=== PATIENT | female | born 1945 | race Caucasian/White ===

== ENCOUNTER 2025-01-31 13:48 | Outpatient (AMB) | payer MEDICARE, OTHER, SELFPAY ==
--- NOTE | 2025-01-31 13:51 | A.OFFVIS_ITS ---
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 She was doing ok but still having symptoms of aura, loss of balance, and pain in legs. 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 06/02/23 Code(s): G62.9 - Polyneuropathy, unspecified Category: Medical Qualifiers: Peripheral neuropathy type: polyneuropathy, unspecified Qualified Code(s): G62.9 - Polyneuropathy, unspecified (3) Cerebral microvascular disease: Comment: MRI brain [place] in [place] in Jun 2023: scattered WM changes (reported). Code(s): I67.89 - Other cerebrovascular disease Category: Medical Plan Impression: a: Migraine with aura b: Severe axonal SM peripheral neuropathy c: Cerebral microvascular disease d: Neuropathic pain Rec: a: Topiramate 50mg one a day b: PRN [id number] c: Pregabilin 150mg one at night Medications: New topiramate 50 mg PO DAILY 90 tabs 0RF pregabalin 150 mg PO BEDTIME 90 caps 0RF Coding Level of Care Code Est Pt Level 4 (04262) Diagnoses Migraine with aura, not intractable, without status migrainosus G43.109 Peripheral polyneuropathy G62.9 Peripheral neuropathy type: polyneuropathy, unspecified Cerebral microvascular disease I67.89
--- OUTSIDE RECORDS SUMMARY | 2025-01-31 13:54 | XMS_ITS | Clinical Summary ---
Author Organization [facility] Address [address] [place] [address] Care Team Providers Care Portfolio Manager Name Role Phone Johan Ge MD Primary Care Provider [phone] Allergies Active Allergy Reactions Criticality Noted Date Comments Oxycodone-Acetaminophen Other (See Comments) Dizziness Medications citalopram (CeleXA) 10 MG tablet citalopram 10 mg tablet Active levothyroxine (SYNTHROID, LEVOTHROID) 75 MCG tablet Take 75 mcg by mouth. Active celeCOXIB (CeleBREX) 200 MG capsule celecoxib 200 mg capsule TAKE 1 CAPSULE BY MOUTH EVERY DAY Active zolpidem (AMBIEN) 5 MG tablet zolpidem 5 mg tablet TAKE 1 TABLET BY MOUTH EVERYDAY AT BEDTIME Active Cholecalciferol 50 MCG (2000 UT) Tab Take 2,000 Units by mouth. Active Magnesium Oxide 250 MG Tab tablet Take 250 mg by mouth. Active topiramate (TOPAMAX) 50 MG tablet Take 50 mg by mouth daily. Active Active Problems No known active problems Social History Tobacco Use Types Packs/Day Years Used Date Smoking Tobacco: Never Assessed Comments Unknown Sex and Gender Information Value Date Recorded Sex Assigned at Not on file Legal Sex Female 6:47 PM EST Gender Identity Not on file Sexual Orientation Not on file Last Filed Vital Signs Vital Sign Reading Time Taken Comments Blood Pressure 116/66 09/20/2023 2:25 PM EDT Pulse 71 09/20/2023 2:25 PM EDT Temperature 36.6 C (97.9 F) 09/20/2023 2:25 PM EDT Respiratory Rate - - Oxygen Saturation 99% 09/20/2023 2:25 PM EDT Inhaled Oxygen Concentration - - Weight - - Height - - Body Mass Index - - Plan of Treatment Health Maintenance Due Date Last Done Comments Hepatitis C Virus Screening 1945 DTaP/Tdap/Td Vaccines (1 - Tdap) 1965 Pneumococcal Vaccines 50+ (1 of 1 - PCV) 1996 Zoster (Shingles) Vaccine (1 of 2) 1996 DXA Bone Density (Females,Ages 65 and older) 2011 RSV Vaccine 60 years and older and Patients (1 - 1-dose 75+ series) 2021 COVID-19 Vaccine ( season) 2024 04/09/2022, 01/06/2022, 05/06/2021, Additional history exists Influenza Vaccine 01/25/2025 05/13/2023, , 04/20/2021, Additional history exists Hepatitis B Vaccines Aged Out No long er eligible based on patient's age to complete this topic Insurance MEDICARE PART A & B [facility] Care Teams Portfolio Manager Relationship Specialty Start Date End Date Johan Ge MD [address] [address] PCP - General Family Medicine 05/16/22
== END 2025-01-31 14:04 | disposition home or self-care (01) ==
PROVIDERS: PCP Family Medicine; Visit Provider Psychiatry & Neurology Neurology
DX: G43.109 Migraine with aura, not intractable, without status migrainosus (principal); G62.9 Polyneuropathy, unspecified; I67.89 Other cerebrovascular disease
CPT/HCPCS: 99214

== ENCOUNTER → 2025-01-31 13:48 | Outpatient (BNVA) | payer MEDICARE, OTHER, SELFPAY | PROVIDERS: PCP Family Medicine; Visit Provider Psychiatry & Neurology Neurology | DX: G43.109 Migraine with aura, not intractable, without status migrainosus (principal); G62.9 Polyneuropathy, unspecified; I67.89 Other cerebrovascular disease | CPT/HCPCS: 99212 ==

== ENCOUNTER 2025-05-20 13:20 | Outpatient (AMB) | payer MEDICARE, OTHER, SELFPAY ==
--- OUTSIDE RECORDS SUMMARY | 2023-04-26 10:19 | XMS_ITS | Continuity of Care Document ---
Author Organization [facility] Address [address] [facility] [address] [place] [phone] Phone Care Team Providers Care Edge Stainer Machine Name Role Phone Wilfrid Cintron MD Unavailable Unavailable Procedures Procedure Date Office/Oupt E&M New Pt 45 Mins Duplex Scan-extrem Veins; Comp Advance Directives Directive Yes / No Effective Date File Name No Information Encounters Encounter Description Practice Location Reason(s) For Visit Diagnoses Date Provider Providers Copied on Encounter [facility], [address] [place] [address], [id number], tel:[phone] [place] - [place] - [place] Venous insufficiency (chronic) (peripheral) 3 Saida Yuen. [address] [place], [address], [place]. tel:[phone] Referring Provider: Lainey Dumont DPM, [address] [place], [address]. tel:[phone] Office/Oupt E&M New Pt 45 Mins [facility], [address] [place] [address], [id number], tel:[phone] [place] - [place] - [facility] Pain in right lower legPain in left lower legPain in right legPain in left legVenous insufficiency (chronic) (peripheral) 3 Stephanie Emery. [address], [address], [place], [address], [place]. [phone] Referring Provider: Lainey Dumont DPM, [address] [place], [address]. tel:[phone] [facility], [address] [place] [address], [id number], tel:[phone] [place] - [place] - [place] Chronic venous hypertension (idiopathic) with other complications of bilateral lower extremity 3 Stephanei Emery. [address], [address], [place], [address], [place]. [phone] Referring Provider: Lainey Dumont DPM, [address] [place], [address]. tel:[phone] Family History Family Member Type Diagnosis Age At Onset No Information Payers Payer name Insurance type Covered green party ID Authorjohanna thomas(s) Medicare [place] [id number] [facility] [id number] Social History Type Description Quantity Date Captured Comments Sex Female Smoking Status No Information Chief Complaint And Reason For Visit No Information Reason For Referral Reason For Referral No Information Plan Of Treatment Date Type Action Status Goal Tobacco cessation counseling completed Goal Diet education completed Goal Diet education completed Referral Ordered: Weight management: Referral to physician timeframe: 3 Months (related to Body mass index (BMI) 28.0-28.9, adult) ordered Referral Ordered: Lainey Dumont DPM timeframe: 3 Months (related to Essential (primary) hypertension) ordered History Of Present Illness Encounter Date Complaint History Of Prese nt Illness No Information Functional Status Date Functional Assessmen t No Information Instructions Date Instruction Additional Infor mation Compression stocking usage as conservative measure Related to Pain in right lower leg Patient education booklet given Related to Pain in right lower leg Lifestyle education Related to B clarissa mass index (BMI) 28.0-28.9, adult Giving Encouragement to exercise Related to Body mass index (BMI) 28.0-28.9, adult Diet education Related to Body mass index (BMI) 28.0-28.9, adult Lifestyle education Related to E ssential (primary) hypertension Exercise education Related to Es sential (primary) hypertension Diet education Related to Essen tial (primary) hypertension Assessments Type Assessment Date assessment Venous insufficiency (chronic) ( peripheral) Patient Care Teams Name Effective Dates (start - stop) Status Members No Information
--- NOTE | 2025-05-20 13:28 | MHC.OFFVIS ---
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 [facility] Medical History (Updated 01/31/25 @ 13:55 by Aidan Clay MD) Cerebral microvascular disease TIA (transient ischemic attack) Peripheral neuropathy Migraine with aura Physical Exam Neuro Other: Mental Status: Alert and oriented to person, place, and time. Normal attention. Normal spontaneous speech, fluency, and comprehension. Cranial Nerves: CN II: Visual pisano full to confrontation, visual acuity intact. CN III, IV, : Pupils equal, round, reactive to light and accommodation. Extraocular movements are normal. CN V: Facial sensation is normal. CN VII: Facial movements symmetrical. CN VIII: Hearing intact to bedside conversation is normal. CN IX, X: Palate elevates symmetrically. CN XI: Shoulder shrug and head turn symmetrical. CN XII: Tongue midline without atrophy or fasciculations. Gait and Station: No obvious gait abnormality. No ataxia or instability. Extrapyramidal: Full facial expressions and blinking. No rigidity. Movements are appropriate with no tremor or abnormality. Speech: Normal; no dysarthria or tremor. 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 06/02/23 Code(s): G62.9 - Polyneuropathy, unspecified Category: Medical Qualifiers: Peripheral neuropathy type: polyneuropathy, unspecified Qualified Code(s): G62.9 - Polyneuropathy, unspecified (2) Cerebral microvascular disease: Comment: MRI brain WO in [place] in Jun 2023: scattered WM changes (reported). Code(s): I67.89 - Other cerebrovascular disease Category: Medical (3) Migraine with aura, not intractable, without status migrainosus: Comment: MRI brain at [facility] in Jun 2023: Mild atrophy, minimal Code(s): G43.109 - Migraine with aura, not intractable, without status migrainosus Category: Medical Plan Impression: a: Migraine with aura b: Severe axonal SM peripheral neuropathy c: Cerebral microvascular disease d: Neuropathic pain Rec: a: Topiramate 50mg one a day b: PRN [id number] c: Pregabilin 150mg one at night Coding Level of Care Code Est Pt Level 3 (24537) Diagnoses Peripheral polyneuropathy G62.9 Peripheral neuropathy type: polyneuropathy, unspecified Cerebral microvascular disease I67.89 Migraine with aura, not intractable, without status migrainosus G43.109
--- OUTSIDE RECORDS SUMMARY | 2025-05-20 18:00 | XMS_ITS | Continuity of Care Document ---
Author Organization [facility], Main Office Address [address] [place] [address] Care Team Providers Care Yard Switch Operator Name Role Phone RAJESH RAMIRES Stock Control Clerk MEKHI CASAS Sprinkler Irrigation Equipment Mechanic [phone] BRISEIDA SHABAZZ Rotary Lithographic Press Operator REBA TRIANA Life Science Research Assistant CHRISTI GREGORY Phys. Med. & Rehab FAMILIA SOLIS Melt Room Operator FREDERIC WONG Primary Care Provider [phone] [facility] Urologist ROXANA HIGGINS Neurologist CELINE ROQUE Sprinkler Irrigation Equipment Mechanic [phone] FERNANDO WALLER Rotary Lithographic Press Operator Assessment Encounter Date Assessment Date Assessment LastModified by Organization Details LastModified Time 03/18/2025 03/18/2025 Fatigue / CT management -Taper zolpidem to 2.5mg to assess for medication-related fatigue. -Recommend discussion with neurology regarding pregabalin/topiram ate dose adjustment or possible switch to duloxetine (may address neuropathy, mood, and IBS-type symptoms). -Encouraged weight loss for management of CT. -Since CPAP is not tolerated, consider referral for oral appliance therapy or other alternatives. -ECG performed today normal. -Labs ordered: CBC, CMP, vitamin D, Lyme screen, ESR, CRP, phosphorus, TSH with free T4, HbA1c, urinalysis. -Chest X-ray ordered to evaluate for alternative systemic causes. Constipation / GI symptoms -Abdominal X-ray ordered to assess stool burden. -Initiated Linzess (adverse effect reviewed). If inadequate response: stepwise addition of MiraLAX, then stool softener. -Reinforced upcoming colonoscopy (May 2025) to evaluate for structural pathology. Anal fissures -Continue follow-up with gastroenterology and colorectal surgery. General -Follow-up in 1 month to reassess fatigue and constipation. -Counseled on red flag symptoms (e.g., significant rectal bleeding, weight loss, severe abdominal pain, worsening fatigue, new neurological symptoms) and to seek care promptly if they occur. codie Not available 03/18/2025 12:11:13 Plan of Treatment Reminders Order Date Submit Date Provider Last Modified By Organization Details Last Modified Time Details Appointments [id number] 2025 11:15A Dania Wong MD Not available Not available Not available Lab HbA1c (hemoglob in A1c), blood 2024 025 CASSIE [facility] (Centralized Electronic Ordering - All Locations), Patient Can Go To The Location Of Their Choice, 03/20/2025 06:08:37 CBC w/ auto diff 2024 025 CASSIE [facility] ([facility]ized [facility] Ordering - All Locations), Patient Can Go To The Location Of Their Choice, 03/20/2025 06:08:34 CMP, serum or plasma 2024 025 CASSIE [facility] ([facility]ized [facility] Ordering - All Locations), Patient Can Go To The Location Of Their Choice, 03/20/2025 06:08:35 vitamin D, 25-hydrox y, total, serum 2024 025 CASSIE [facility] ([facility]ized [facility] Ordering - All Locations), Patient Can Go To The Location Of Their Choice, 03/20/2025 06:08:38 borrelia burgdorfe ri IgG + IgM + total panel, IA, serum 2024 025 CASSIE [facility] ([facility] Ordering - All Locations), Patient Can Go To The Location Of Their Choice, 03/20/2025 06:08:38 inflammat ion panel, serum or plasma 2024 025 CASSIE [facility] ([facility] Ordering - All Locations), Patient Can Go To The Location Of Their Choice, 03/20/2025 06:08:37 phosphoru s, serum or plasma 2024 025 TOOELE [facility] ([facility]ized Electronic Ordering - All Locations), Patient Can Go To The Location Of Their Choice, 03/20/2025 06:08:39 TSH + free T4, serum 2024 025 TOOELE [facility] ([facility]ized [facility] Ordering - All Locations), Patient Can Go To The Location Of Their Choice, 03/20/2025 06:08:34 urinalysi s complete, reflex culture 2024 TOOELE [facility] ([facility] Ordering - All Locations), Patient Can Go To The Location Of Their Choice, 03/20/2025 06:08:36 cobalamin and folate panel, serum 2024 [facility] Patient Can Go To The Location Of Their Choice, 03/20/2025 06:08:36 iron + TIBC + ferritin, serum 2024 [facility]), Patient Can Go To The Location Of Their Choice, 03/20/2025 06:08:33 Referral None recorded. Procedures None recorded. Surgeries None recorded. Imaging XR, abdomen, complete 2024 [facility], [facility] [place], [address], 03/20/2025 17:22:06 electroca rdiogram 2024 In-Office Order, Internal Use Only DO Not Attach Compendium DO Not Attach Compendium, Do Not Delete/merge, [id number] 03/18/2025 12:21:23 XR, chest, 2 view 2024 [facility], [address] [place], [address], 03/19/2025 12:13:15 Medication Orders Linzess 72 mcg capsule 2024 025 codie [id number], [address], [place], [address], 03/18/2025 12:11:46 Patient TargetsNo targets recorded. Patient Instructions Encounter Date Encounter Id Patient Instructions Last Modified By Organization Details Last Modified Time 03/18/2025 [id number] anal fissure: ca re instructions [email or web address] Not available 03/18/2025 12:13:04 gastroesophageal reflux disease (GERD): care instructions [email or web address] Not available 03/18/2025 12:13:04 hemorrhoids: car e instructions [email or web address] Not available 03/18/2025 12:13:04 hypothyroidism: care instructions [email or web address] Not available 03/18/2025 12:13:04 Reason for Referral None Reported. Results Created Date Observation Date Name Description Value Unit Range Abnormal Flag Note LastModifiedBy Organization Detail LastModifiedTime 03/18/2003/19/2025 FE+TI BC+FE R iron bind.cap.(TI BC) 363 ug/dL 250-45 0 normal Not Available [facility] ([facility]) [address] [place], [address], 03/20/2025 06:08:33 03/18/20 25 03/19/2025 FE+TI BC+FE R UIBC 276 ug/dL 118-36 9 normal Not Available [facility] ([facility]) [address] [place], [address], 03/20/2025 06:08:33 03/18/2003/19/2025 FE+TI BC+FE R iron 87 ug/dL 27-139 normal Not Available [facility] ([facility]) [address] [place], [address], 03/20/2025 06:08:33 03/18/20 25 03/19/2025 FE+TI BC+FE R iron saturation 24 % 15-55 normal Not Available [facility] ([facility]) [address] [place], [address], 03/20/2025 06:08:33 03/18/20 25 03/19/2025 FE+TI BC+FE R ferritin 59 NG/mL 15-150 normal Not Available [facility] ([facility]) [address] [place], [address], 03/20/2025 06:08:33 03/18/2003/19/2025 TSH+F REE T4 TSH 5.240 uIU/m L 0.450- 4.500 above high normal Not Available [facility] ([facility]) [address] [place], [address], 03/20/2025 06:08:34 03/18/2003/19/2025 TSH+F REE T4 T4,free(dire ct) 1.28 NG/dL 0.82-1 .77 normal Not Available [facility] ([facility]) [address] [place], [address], 03/20/2025 06:08:34 03/18/20 25 03/19/2025 CBC WITH DIFFE RENTI AL/PL ATELE T WBC 6.8 x10e3 /uL 3.4-10 .8 normal Not Available [facility] ([facility]) [address] [place], [address], 03/20/2025 06:08:34 03/18/20 25 03/19/2025 CBC WITH DIFFE RENTI AL/PL ATELE T RBC 4.49 x10e6 /uL 3.77-5 .28 normal Not Available [facility] ([facility]) [address] [place], [address], 03/20/2025 06:08:34 03/18/20 25 03/19/2025 CBC WITH DIFFE RENTI AL/PL ATELE T hemoglobin 13.4 g/dL 11.1-1 5.9 normal Not Available [facility] ([facility]) [address] [place], [address], 03/20/2025 06:08:34 03/18/20 25 03/19/2025 CBC WITH DIFFE RENTI AL/PL ATELE T hematocrit 40.6 % 34.0-4 6.6 normal Not Available [facility] ([facility]) [address] [place], [address], 03/20/2025 06:08:34 03/18/2003/19/2025 CBC WITH DIFFE RENTI AL/PL ATELE T MCV 90 fL 79-97 normal Not Available [facility] ([facility]) [address] [place], [address], 03/20/2025 06:08:34 03/18/2003/19/2025 CBC WITH DIFFE RENTI AL/PL ATELE T MCH 29.8 pg 26.6-3 3.0 normal Not Available [facility] ([facility]) [address] [place], [address], 03/20/2025 06:08:34 03/18/20 25 03/19/2025 CBC WITH DIFFE RENTI AL/PL ATELE T MCHC 33.0 g/dL 31.5-3 5.7 normal Not Available [facility] ([facility]) [address] [place], [address], 03/20/2025 06:08:34 03/18/2003/19/2025 CBC WITH DIFFE RENTI AL/PL ATELE T RDW 13.3 % 11.7-1 5.4 Not Available [facility] ([facility]) [address] [place], [address], 03/20/2025 06:08:34 03/18/20 25 03/19/2025 CBC WITH DIFFE RENTI AL/PL ATELE T platelets 215 x10e3 /uL 150-45 0 normal Not Available [facility] ([facility]) [address] [place], [address], 03/20/2025 06:08:34 03/18/20 25 03/19/2025 CBC WITH DIFFE RENTI AL/PL ATELE T neutrophils 64 % not estab. normal Not Available [facility] ([facility]) [address] [facility], [place], [address], 03/20/2025 06:08:34 03/18/20 25 03/19/2025 CBC WITH DIFFE RENTI AL/PL ATELE T lymphs 27 % not estab. normal Not Available [facility] ([facility]) [address] [facility], [place], [address], 03/20/2025 06:08:34 03/18/20 25 03/19/2025 CBC WITH DIFFE RENTI AL/PL ATELE T monocytes 6 % not estab. normal Not Available [facility] ([facility]) [address] [facility], [place], [address], 03/20/2025 06:08:34 03/18/20 25 03/19/2025 CBC WITH DIFFE RENTI AL/PL ATELE T eos 2 % not estab. normal Not Available [facility] ([facility]) [address] [facility], [place], [address], 03/20/2025 06:08:34 03/18/20 25 03/19/2025 CBC WITH DIFFE RENTI AL/PL ATELE T basos 1 % not estab. normal Not Available [facility] ([facility]) [address] [facility], [place], [address], 03/20/2025 06:08:34 03/18/20 25 03/19/2025 CBC WITH DIFFE RENTI AL/PL ATELE T immature cells SALON CUSTOMER EXPERIENCE SPECIALIST Not Available [facility] ([facility]) [address] [facility], [place], [address], 03/20/2025 06:08:34 03/18/20 25 03/19/2025 CBC WITH DIFFE RENTI AL/PL ATELE T neutrophils (absolute) 4.4 x10e3 /uL 1.4-7. 0 normal Not Available [facility] ([facility]) [address] [place], [address], 03/20/2025 06:08:34 03/18/20 25 03/19/2025 CBC WITH DIFFE RENTI AL/PL ATELE T lymphs (absolute) 1.9 x10e3 /uL 0.7-3. 1 normal Not Available [facility] ([facility]) [address] [facility], [place], [address], 03/20/2025 06:08:34 03/18/2003/19/2025 CBC WITH DIFFE RENTI AL/PL ATELE T monocytes(ab solute) 0.4 x10e3 /uL 0.1-0. 9 normal Not Available [facility] ([facility]) [address] [place], [address], 03/20/2025 06:08:34 03/18/20 25 03/19/2025 CBC WITH DIFFE RENTI AL/PL ATELE T eos (absolute) 0.1 x10e3 /uL 0.0-0. 4 normal Not Available [facility] ([facility]) [address] [facility], [place], [address], 03/20/2025 06:08:34 03/18/20 25 03/19/2025 CBC WITH DIFFE RENTI AL/PL ATELE T baso (absolute) 0.1 x10e3 /uL 0.0-0. 2 normal Not Available [facility] ([facility]) [address] [place], [address], 03/20/2025 06:08:34 03/18/20 25 03/19/2025 CBC WITH DIFFE RENTI AL/PL ATELE T immature granulocytes 0 % not estab. Not Available [facility] ([facility]) [address] [place], [address], 03/20/2025 06:08:34 03/18/20 25 03/19/2025 CBC WITH DIFFE RENTI AL/PL ATELE T immature grans (abs) 0.0 x10e3 /uL 0.0-0. 1 Not Available [facility] ([facility]) [address] [facility], [place], [address], 03/20/2025 06:08:34 03/18/20 25 03/19/2025 CBC WITH DIFFE RENTI AL/PL ATELE T NRBC SALON CUSTOMER EXPERIENCE SPECIALIST Not Available [facility] ([facility]) [address] [facility], [place], [address], 03/20/2025 06:08:34 03/18/20 25 03/19/2025 CBC WITH DIFFE RENTI AL/PL ATELE T hematology comments: SALON CUSTOMER EXPERIENCE SPECIALIST Not Available [facility] ([facility]) [address] [facility], [place], [address], 03/20/2025 06:08:34 03/18/20 25 03/19/2025 COMP. METAB OLIC PANEL (14) glucose 91 mg/dL 70-99 normal Not Available [facility] ([facility]) [address] [facility], [place], [address], 03/20/2025 06:08:35 03/18/20 25 03/19/2025 COMP. METAB OLIC PANEL (14) BUN 13 mg/dL 8-27 normal Not Available [facility] ([facility]) [address] [facility], [place], [address], 03/20/2025 06:08:35 03/18/20 25 03/19/2025 COMP. METAB OLIC PANEL (14) creatinine 0.75 mg/dL 0.57-1 .00 normal Not Available [facility] ([facility]) [address] [facility], [place], [address], 03/20/2025 06:08:35 03/18/20 25 03/19/2025 COMP. METAB OLIC PANEL (14) eGFR 81 mL/mi n/1.7 3 >59 normal Not Available [facility] ([facility]) [address] [place], [address], 03/20/2025 06:08:35 03/18/20 25 03/19/2025 COMP. METAB OLIC PANEL (14) BUN/creatini ne ratio 17 12-28 normal Not Available [facility] ([facility]) [address] [place], [address], 03/20/2025 06:08:35 03/18/20 25 03/19/2025 COMP. METAB OLIC PANEL (14) sodium 140 mmol/ L 134-14 4 normal Not Available [facility] ([facility]) [address] [facility], [place], [address], 03/20/2025 06:08:35 03/18/20 25 03/19/2025 COMP. METAB OLIC PANEL (14) potassium 4.6 mmol/ L 3.5-5. 2 normal Not Available [facility] ([facility]) [address] [place], [address], 03/20/2025 06:08:35 03/18/20 25 03/19/2025 COMP. METAB OLIC PANEL (14) chloride 103 mmol/ L 96-106 normal Not Available [facility] ([facility]) [address] [place], [address], 03/20/2025 06:08:35 03/18/20 25 03/19/2025 COMP. METAB OLIC PANEL (14) carbon dioxide, total 22 mmol/ L 20-29 normal Not Available [facility] ([facility]) [address] [place], [address], 03/20/2025 06:08:35 03/18/20 25 03/19/2025 COMP. METAB OLIC PANEL (14) calcium 9.4 mg/dL 8.7-10 .3 normal Not Available [facility] ([facility]) [address] [place], [address], 03/20/2025 06:08:35 03/18/20 25 03/19/2025 COMP. METAB OLIC PANEL (14) protein, total 6.8 g/dL 6.0-8. 5 normal Not Available [facility] ([facility]) [address] [place], [address], 03/20/2025 06:08:35 03/18/20 25 03/19/2025 COMP. METAB OLIC PANEL (14) albumin 4.6 g/dL 3.8-4. 8 normal Not Available [facility] ([facility]) [address] [place], [address], 03/20/2025 06:08:35 03/18/20 25 03/19/2025 COMP. METAB OLIC PANEL (14) globulin, total 2.2 g/dL 1.5-4. 5 Not Available [facility] ([facility]) [address], [place], [address], 03/20/2025 06:08:35 03/18/20 25 03/19/2025 COMP. METAB OLIC PANEL (14) bilirubin, total 0.4 mg/dL 0.0-1. 2 normal Not Available [facility] ([facility]) [address] [place], [address], 03/20/2025 06:08:35 03/18/20 25 03/19/2025 COMP. METAB OLIC PANEL (14) alkaline phosphatase 103 IU/L 49-135 normal Ple ase note refer ence inter meseret odell e Not Available [facility] ([facility]) [address] [place], [address], 03/20/2025 06:08:35 03/18/20 25 03/19/2025 COMP. METAB OLIC PANEL (14) AST (SGOT) 17 IU/L 0-40 normal Not Available [facility] ([facility]) [address], [place], [address], 03/20/2025 06:08:35 03/18/2003/19/2025 COMP. METAB OLIC PANEL (14) ALT (SGPT) 10 IU/L 0-32 normal Not Available [facility] ([facility]) [address], [place], [address], 03/20/2025 06:08:35 03/18/20 25 03/19/2025 UA/M W/RFL X CULTU RE, ROUTI NE specific gravity 1.020 1.005- 1.030 normal Not Available [facility] ([facility]) [address], [place], [address], 03/20/2025 06:08:36 03/18/20 25 03/19/2025 UA/M W/RFL X CULTU RE, ROUTI NE pH 7.5 5.0-7. 5 normal Not Available [facility] ([facility]) [address], [place], [address], 03/20/2025 06:08:36 03/18/20 25 03/19/2025 UA/M W/RFL X CULTU RE, ROUTI NE urine-color Yellow yellow Not Available [facility] ([facility]) [address] [place], [address], 03/20/2025 06:08:36 03/18/20 25 03/19/2025 UA/M W/RFL X CULTU RE, ROUTI NE appearance Cloudy clear abnormal Not Available [facility] ([facility]) [address] [place], [address], 03/20/2025 06:08:36 03/18/20 25 03/19/2025 UA/M W/RFL X CULTU RE, ROUTI NE WBC esterase Trace negati ve abnormal Not Available [facility] ([facility]) [address] [facility], [place], [address], 03/20/2025 06:08:36 03/18/20 25 03/19/2025 UA/M W/RFL X CULTU RE, ROUTI NE protein Trace negati ve/tra ce Not Available [facility] ([facility]) [address] [facility], [place], [address], 03/20/2025 06:08:36 03/18/20 25 03/19/2025 UA/M W/RFL X CULTU RE, ROUTI NE glucose Negati ve negati ve Not Available [facility] ([facility]) [address] [place], [address], 03/20/2025 06:08:36 03/18/20 25 03/19/2025 UA/M W/RFL X CULTU RE, ROUTI NE ketones Negati ve negati ve Not Available [facility] ([facility]) [address] [place], [address], 03/20/2025 06:08:36 03/18/20 25 03/19/2025 UA/M W/RFL X CULTU RE, ROUTI NE occult blood Negati ve negati ve Not Available [facility] ([facility]) [address] [place], [address], 03/20/2025 06:08:36 03/18/20 25 03/19/2025 UA/M W/RFL X CULTU RE, ROUTI NE bilirubin Negati ve negati ve Not Available [facility] ([facility]) [address] [place], [address], 03/20/2025 06:08:36 03/18/20 25 03/19/2025 UA/M W/RFL X CULTU RE, ROUTI NE urobilinogen ,semi-qn 0.2 mg/dL 0.2-1. 0 normal Not Available [facility] ([facility]) [address] [place], [address], 03/20/2025 06:08:36 03/18/20 25 03/19/2025 UA/M W/RFL X CULTU RE, ROUTI NE nitrite, urine Negati ve negati ve Not Available [facility] ([facility]) [address] [facility], [place], [address], 03/20/2025 06:08:36 03/18/20 25 03/19/2025 UA/M W/RFL X CULTU RE, ROUTI NE microscopic examination See below: Micro scopi c was indic ated and was perfo rmed. Not Available [facility] ([facility]) [address] [facility], [place], [address], 03/20/2025 06:08:36 03/18/20 25 03/19/2025 UA/M W/RFL X CULTU RE, ROUTI NE WBC None seen /hpf 0 - 5 Not Available [facility] ([facility]) [address] [facility], [place], [address], 03/20/2025 06:08:36 03/18/20 25 03/19/2025 UA/M W/RFL X CULTU RE, ROUTI NE RBC 0-2 /hpf 0 - 2 Not Available [facility] ([facility]) [address] [facility], [place], [address], 03/20/2025 06:08:36 03/18/20 25 03/19/2025 UA/M W/RFL X CULTU RE, ROUTI NE epithelial cells (non renal) None seen /hpf 0 - 10 Not Available [facility] ([facility]) [address] [place], [address], 03/20/2025 06:08:36 03/18/20 25 03/19/2025 UA/M W/RFL X CULTU RE, ROUTI NE epithelial cells (renal) SALON CUSTOMER EXPERIENCE SPECIALIST Not Available [facility] ([facility]) [address] [place], [address], 03/20/2025 06:08:36 03/18/20 25 03/19/2025 UA/M W/RFL X CULTU RE, ROUTI NE casts None seen /lpf none seen Not Available [facility] ([facility]) [address] [facility], [place], [address], 03/20/2025 06:08:36 03/18/20 25 03/19/2025 UA/M W/RFL X CULTU RE, ROUTI NE cast type SALON CUSTOMER EXPERIENCE SPECIALIST Not Available [facility] ([facility]) [address] [facility], [place], [address], 03/20/2025 06:08:36 03/18/20 25 03/19/2025 UA/M W/RFL X CULTU RE, ROUTI NE crystals SALON CUSTOMER EXPERIENCE SPECIALIST Not Available [facility] ([facility]) [address] [facility], [place], [address], 03/20/2025 06:08:36 03/18/20 25 03/19/2025 UA/M W/RFL X CULTU RE, ROUTI NE crystal type SALON CUSTOMER EXPERIENCE SPECIALIST Not Available [facility] ([facility]) [address] [facility], [place], [address], 03/20/2025 06:08:36 03/18/20 25 03/19/2025 UA/M W/RFL X CULTU RE, ROUTI NE mucus threads SALON CUSTOMER EXPERIENCE SPECIALIST Not Available [facility] ([facility]) [address] [facility], [place], [address], 03/20/2025 06:08:36 03/18/20 25 03/19/2025 UA/M W/RFL X CULTU RE, ROUTI NE bacteria None seen none seen/f ew Not Available [facility] ([facility]) [address] [facility], [place], [address], 03/20/2025 06:08:36 03/18/20 25 03/19/2025 UA/M W/RFL X CULTU RE, ROUTI NE yeast SALON CUSTOMER EXPERIENCE SPECIALIST Not Available [facility] ([facility]) [address] [facility], [place], [address], 03/20/2025 06:08:36 03/18/20 25 03/19/2025 UA/M W/RFL X CULTU RE, ROUTI NE trichomonas SALON CUSTOMER EXPERIENCE SPECIALIST Not Available [facility] ([facility]) [address] [facility], [place], [address], 03/20/2025 06:08:36 03/18/20 25 03/19/2025 UA/M W/RFL X CULTU RE, ROUTI NE comment SALON CUSTOMER EXPERIENCE SPECIALIST Not Available [facility] ([facility]) [address] [facility], [place], [address], 03/20/2025 06:08:36 03/18/20 25 03/19/2025 UA/M W/RFL X CULTU RE, ROUTI NE microscopic examination SALON CUSTOMER EXPERIENCE SPECIALIST Not Available [facility] ([facility]) [address] [facility], [place], [address], 03/20/2025 06:08:36 03/18/20 25 03/19/2025 UA/M W/RFL X CULTU RE, ROUTI NE urinalysis reflex Commen t This speci men has refle xed to a Urine Cultu re. Not Available [facility] ([facility]) [address] [facility], [place], [address], 03/20/2025 06:08:36 03/18/20 25 03/20/2025 UA/M W/RFL X CULTU RE, ROUTI NE urine culture, routine Final report Not Available [facility] ([facility]) [address] [place], [address], 03/20/2025 06:08:36 03/18/20 25 03/20/2025 UA/M W/RFL X CULTU RE, ROUTI NE result 1 No growth Not Available [facility] ([facility]) [address] [facility], [place], [address], 03/20/2025 06:08:36 03/18/2003/19/2025 VITAM IN B12 AND FOLAT E vitamin B12 >2000 pg/mL 232-12 45 above high normal Not Available [facility] ([facility]) [address] [facility], [place], [address], 03/20/2025 06:08:36 03/18/2003/19/2025 VITAM IN B12 AND FOLAT E folate (folic acid), serum 7.3 NG/mL >3.0 normal A serum folat e rocio ntrat ion of less than 3.1 ng/mL is consi dered to repre sent clini jason defic iency . Not Available [facility] ([facility]) [address] [facility], [place], [address], 03/20/2025 06:08:36 03/18/2003/19/2025 ESR-W ES+CR P sedimentatio n rate-westerg rogelio 11 mm/HR 0-40 normal Not Available [facility] ([facility]) [address] [facility], [place], [address], 03/20/2025 06:08:37 03/18/2003/19/2025 ESR-W ES+CR P C-reactive protein, quant 2 mg/L 0-10 normal Not Available [facility] ([facility]) [address] [facility], [place], [address], 03/20/2025 06:08:37 03/18/2003/19/2025 HEMOG LOBIN A1C hemoglobin A1C 5.4 % 4.8-5. 6 normal Predi abete s: 5.7 - 6.4 Diabe sandra: >6.4 Glyce cassandra contr ol for adult s with diabe sandra: <7.0 Not Available [facility] ([facility]) [address] [facility], [place], [address], 03/20/2025 06:08:37 03/18/20 25 03/19/2025 VITAM IN D, 25-HY DROXY vitamin D, 25-hydroxy 49.1 NG/mL 30.0-1 00.0 Vitam in D defic iency has been defin ed by the Insti tute of Medic ine and an Endoc rine Socie ty pract ice guide line as a level of serum 25-OH vitam in D less than 20 ng/mL (1,2) . The Endoc rine Socie ty went on to furth er defin e vitam in D insuf ficie ncy as a level betwe en 21 and 29 ng/mL (2). 1. IOM (Inst itute of Medic ine). 2010. Mary ry refer ence deirdre es for calci um and D. Christianne pinto [place]: [facility] . 2. Carlo kasper [place], Issac shipley [place], Spencer off-F errar i ENGLISH, et al. Evalu ation , treat ment, and preve ntion of vitam in D defic iency : an Endoc rine Socie ty clini jason pract ice guide line. JCEM. 2010; 96(7) :1911 -30. Not Available [facility] ([facility]) [address] [facility], [place], [address], 03/20/2025 06:08:38 03/18/20 25 03/19/2025 LYME DISEA SE SEROL OGY W/REF TANIA lyme total antibody sreedhar Negati ve negati ve Lyme antib odies not detec marcy. Refle x testi ng is not indic ated. No labor atory evide nce of infec tion with B. burgd orfer i (Lyme disea se). Negat fe resul ts may occur in patie nts recen tly infec marcy (less than or equal to 14 days) with B. burgd orfer i. If recen t infec tion is suspe cted, repea t testi ng on a new sampl e colle cted in 7 to 14 days is recom sarah d. Not Available [facility] ([facility]) [address] [facility], [place], [address], 03/20/2025 06:08:38 03/18/20 25 03/19/2025 PHOSP HORUS phosphorus 3.6 mg/dL 3.0-4. 3 normal Not Available [facility] ([facility]) [address], [place], [address], 03/20/2025 06:08:39 03/18/20 25 03/18/2025 elect rocar diogr am No observ ation record ed. [email or web address] In-Office Order Internal Use Only DO Not Attach Compendium DO Not Attach Compendium, Do Not Delete/merge, [id number] 03/18/2025 12:27:30 03/18/20 elect rocar diogr am No observ ation record ed. [email or web address] In-Office Order Internal Use Only DO Not Attach Compendium DO Not Attach Compendium, Do Not Delete/merge, [id number] 03/18/2025 12:16:43 03/19/2003/19/2025 XR, chest , 2 view No observ ation record ed. [email or web address] [facility] [address], [place], [address], 03/25/2025 11:59:49 03/19/2003/18/2025 XR, chest , 2 view Chest 2 Views Fronta l and Lat Reason : fatigu e COMPAR CATHY: Multip le prior most recent 021. FINDIN GS: LINES AND TUBES: None. LUNGS AND PLEURA : Clear lungs. Normal pulmon claribel vascul arity. No eviden ce of pleura l effusi on. No pneumo thorax . HEART, MEDIAS TINUM AND LEONIDAS: Heart is normal in size. Aorta is mildly calcif ied. BONES AND SOFT TISSUE S: No acute abnorm ality. Mild scolio sis of the lumbar spine. Multil evel degene rative change s of the visual ized spine IMPRES JV: No acute abnorm ality. WSN: [id number] Orderi ng Physic mani: Pennie Wong Dictat ed By: Bradford ngo MD, Ryan Kolb Dictat ed Date/T zaki: 12:05 p Review ed By: Bradford ngo MD, Ryan Kolb Signed By: Ryan Emery MD, V Signed Date/T zaki: 12:05 pm Transc ribed By: KENIA Transc ribed Date/T zaki: 11:40 am Patien t Class: Outpat ient [facility] (Outpt Imaging) [address] [place], [address], 03/22/2025 13:15:00 03/20/20 25 03/20/2025 XR, abdom en, compl ete No observ ation record ed. [facility] [address] [place], [address], 03/22/2025 14:33:31 03/20/20 25 03/18/2025 XR, abdom en Abdome n Comp Inc Decub and/or Erect 2 view INDICA TION/C LINICA L QUESTI ON: Reason : consti pation COMPAR CATHY: None FINDIN GS: Mild stool retent ion but otherw ise normal bowel gas patter n. No eviden ce of obstru ction. No eviden ce of pneumo perito neum. Degene rative change s of the spine. Partia lly visual ized right hip arthro plasty . No acute bone findin gs. IMPRES JV: Mild coloni c stool retent ion. WSN: [id number] Orderi ng Physic mani: Pennie Wong ai Dictat ed By: Manuel Carvalho MD Dictat ed Date/T zaki: 5:16 pm Review ed By: Manuel Carvalho MD Signed By: Manuel Carvalho MD Signed Date/T zaki: 5:16 pm Transc ribed By: KENIA Transc ribed Date/T zaki: 5:15 pm Patien t Class: Outpat ient [facility] (Outpt Imaging) [address] [place], [address], 03/22/2025 14:55:13 Result Notes None recorded. Problems Name Problem SNOMED Code Status Onset Date Resolution Date Notes Provider Name and Address Organization Details Recorded Time Anxiety 37889923 Active Not Available [facility] 2 13:24:13 Fatigue 96618605 Completed 10/05/2018 Renetta ahumada, [facility] 9 10:14:18 Advance directiv milton [place] with patient 317012343 Completed 05/14/2022 Abdias Bowman PA-C [address], [place], [address] , [facility] 2 15:21:49 Menopaus e present 613626613 Completed 05/14/2022 Abdias Bowman PA-C [address], [place], [address] , [facility] 2 15:24:09 Lesion of skin of face 42308302024 6 Completed 05/14/2022 Abdias Bowman PA-C [address], [place], [address] , [facility] 2 15:23:55 Dyspnea on exertion 21244373 Completed 05/14/2022 Abdias Bowman PA-C [address], [place], [address] , [facility] 2 15:25:22 Precordi al pain 77735161 Completed 05/14/2022 Abdias Bowman PA-C [address], [place], [address] , [facility] 2 15:25:59 Osteopor osis 34277731 Completed 200701/15/2014 RESOLVED DATE: 11/14/19 08; RECORDED 11/14/19 08 9:29AM BY TOMER NORWOOD MD, OFFICE VISIT YASMIN Butler, [facility] 6 16:33:00 Osteopor osis 91582664 Completed 200702/04/2014 RESOLVED DATE: 11/14/19 08; RECORDED 11/14/19 08 9:29AM BY TOMER NORWOOD MD, OFFICE VISIT YASMIN Butler, [facility] 6 16:33:00 Administ ration of bacteria l and viral vaccine Completed 200801/15/2014 RECORDED 11/30/19 09 1:33PM BY YASMIN CAMACHO, OFFICE VISIT YASMIN Butler, [facility] 6 16:33:00 Administ ration of bacteria l and viral vaccine Completed 200802/04/2014 RECORDED 11/30/19 09 1:33PM BY YASMIN CAMACHO, OFFICE VISIT YASMIN Butler, [facility] 6 16:33:00 Hyperlip idemia 55926926 Completed 201001/15/2014 RECORDED 12/12/19 11 1:55PM BY RUI PHILIPPE MA, SHANI ON/ADDEN DUM Abdias Bowman PA-C [address] [facility] [address], [place], [address] , [facility] 9 13:22:46 Divertic ular disease 776422327 Active 2010 Not Available [facility] 2 13:24:13 Hyperlip idemia 86007252 Active 2010 Not Available [facility] 2 13:24:13 Gastroes ophageal reflux disease 762007233 Active 2011 Not Available [facility] 2 13:24:12 Administ ration of viral vaccine Completed 201101/15/2014 DATE: 11/23/19 12; RECORDED 06/23/20 12 10:31AM BY SHANI YUNG ON/ADDEN DUM YASMIN Butler, [facility] 6 16:33:00 Administ ration of viral vaccine Completed 201102/04/2014 DATE: 11/23/19 12; RECORDED 06/23/20 12 10:31AM BY SHANI YUNG ON/ADDEN DUM Rui Cassi-YASMIN Gray, [facility] 6 16:33:00 Actinic keratosi s 823143814 Completed 201101/15/2014 RECORDED 06/23/20 12 10:31AM BY BRIANNE YUNGATI ON/ADDEN DUM Rui Cassi-YASMIN Gray, [facility] 6 16:33:00 Screenin g for malignan t neoplasm of breast Completed 201101/15/2014 RECORDED 06/23/20 12 10:31AM BY SHANI YUNG ON/ADDEN DUM Rui Cassi-YASMIN Gray, [facility] 6 16:33:00 Screenin g for malignan t neoplasm of cervix Completed 201101/15/2014 RECORDED 06/23/20 12 10:31AM BY SHANI YUNG ON/ADDEN DUM Rui Cassi-YASMIN Gray, [facility] 6 16:33:00 Conjunct ivitis 3948871 Completed 201101/15/2014 RECORDED 06/23/20 12 10:31AM BY SHANI YUNG ON/ADDEN DUM Rui CassiYASMIN Cisse, [facility] 6 16:33:00 Constipa tion 50306105 Completed 201101/15/2014 RECORDED 06/23/20 12 10:31AM BY SHANI YUNG ON/ADDEN DUM Frederic Wong MD [address] [facility] [address], [place], [address] , [facility] 4 18:49:05 Noninfec tious gastroen teritis 90525022 Completed 201101/15/2014 IMPRESSI ON: RESOLVED DIARRHEA AND VOMITING , BACK TO WORK NOTE FOR PT, LOOKS WELL HYDRATED , MILD DIZZINES S FROM POOR PO INTAKE, TAKE SOME FOOD; RECORDED 06/23/20 12 10:31AM BY BRIANNE YUNGATI ON/ADDEN DUM Rui Cassi-Ma YASMIN johnson, [facility] 6 16:33:00 Screenin g for malignan t neoplasm of colon Completed 201101/15/2014 RECORDED 06/23/20 12 10:31AM BY BRIANNE YUNGATI ON/ADDEN DUM Rui Cassi-YASMIN Gray, [facility] 6 16:33:00 Pain in thoracic spine 875049509 Completed 201101/15/2014 RECORDED 06/23/20 12 10:31AM BY SHANI YUNG ON/ADDEN DUM Rui Cassi-YASMIN Gray, [facility] 6 16:33:00 Actinic keratosi s 864969713 Completed 201102/04/2014 RECORDED 06/23/20 12 10:31AM BY SHANI YUNG ON/ADDEN DUM Rui Cassi-YASMIN Gray, [facility] 6 16:33:00 Screenin g for malignan t neoplasm of breast Completed 201102/04/2014 RECORDED 06/23/20 12 10:31AM BY SHANI YUNG ON/ADDEN DUM Rui Cassi-YASMIN Gray, [facility] 6 16:33:00 Screenin g for malignan t neoplasm of cervix Completed 201102/04/2014 RECORDED 06/23/20 12 10:31AM BY HCATO MARTINS I ANNOTATI ON/ADDEN DUM Rui Cassi-Ma YASMIN johnson, [facility] 6 16:33:00 Conjunct ivitis 7724353 Completed 201102/04/2014 RECORDED 06/23/20 12 10:31AM BY SHANI YUNG ON/ADDEN DUM YASMIN Butler, [facility] 6 16:33:00 Constipa tion 72313816 Completed 201102/04/2014 RECORDED 06/23/20 12 10:31AM BY BRIANNE YUNGATI ON/ADDEN DUM Frederic Wong MD [address] [facility] [address], [facility] [place], [address] , [facility] 4 18:49:05 Noninfec tious gastroen teritis 76212706 Completed 201102/04/2014 IMPRESSI ON: RESOLVED DIARRHEA AND VOMITING , BACK TO WORK NOTE FOR PT, LOOKS WELL HYDRATED , MILD DIZZINES S FROM POOR PO INTAKE, TAKE SOME FOOD; RECORDED 06/23/20 12 10:31AM BY SHANI YUNG ON/ADDEN DUM YASMIN Butler, [facility] 6 16:33:00 Screenin g for malignan t neoplasm of colon Completed 201102/04/2014 RECORDED 06/23/20 12 10:31AM BY SHANI YUNG ON/ADDEN DUM YASMIN Butler, [facility] 6 16:33:00 Pain in thoracic spine 409722873 Completed 201102/04/2014 RECORDED 06/23/20 12 10:31AM BY SHANI YUNG ON/ADDEN DUM YASMIN Butler, [facility] 6 16:33:00 Anxiety state 387853822 Completed 201201/15/2014 RECORDED 07/10/19 13 11:29AM BY RUI PHILIPPE MA, ANNOTATI ON/ADDEN DUM YASMIN Butler, [facility] 6 16:33:00 Gastroes ophageal reflux disease 479751768 Completed 201201/15/2014 RECORDED 07/10/19 13 11:29AM BY RUI PHILIPPE MA, ANNOTATI ON/ADDEN DUM Rui johnson MA null, [facility] 6 16:33:00 Headache 58728388 Completed 201201/15/2014 RECORDED 07/10/19 13 11:29AM BY CHATO MARTINS I, ANNOTATI ON/ADDEN DUM Rui johnson MA null, [facility] 6 16:33:00 Migraine 60218423 Completed 201201/15/2014 RECORDED 07/10/19 13 11:29AM BY RUI PHILIPPE MA, ANNOTATI ON/ADDEN DUM Deepika Tolentino null, [facility] 4 08:46:05 Anxiety state 223843142 Completed 201202/04/2014 RECORDED 07/10/19 13 11:29AM BY RUI PHILIPPE MA, ANNOTATI ON/ADDEN DUM YASMIN Butler, [facility] 6 16:33:00 Gastroes ophageal reflux disease 231818348 Completed 201202/04/2014 RECORDED 07/10/19 13 11:29AM BY RUI PHILIPPE MA, ANNOTATI ON/ADDEN DUM Rui johnson MA null, [facility] 6 16:33:00 Headache 22246306 Completed 201202/04/2014 RECORDED 07/10/19 13 11:29AM BY CHATO MARTINS I, ANNOTATI ON/ADDEN DUM Rui johnson MA null, [facility] 6 16:33:00 Palpitat ions 23498125 Completed 201201/15/2014 RECORDED 08/10/19 13 4:44PM BY CHATO MARTINS I, ANNOTATI ON/ADDEN DUM YASMIN Butler, [facility] 6 16:33:00 Palpitat ions 50047440 Completed 201202/04/2014 RECORDED 08/10/19 13 4:44PM BY CHATO MARTINS I ANNOTATI ON/ADDEN DUM Rui johnson MA null, [facility] 6 16:33:00 General symptom 777371262 Completed 201201/15/2014 RECORDED 10/06/19 13 11:23AM BY ALEX HURST MA, ANNOTATI ON/ADDEN DUM Rui YASMIN Briones, [facility] 6 16:33:00 General symptom 937834274 Completed 201202/04/2014 RECORDED 10/06/19 13 11:23AM BY ALEX HURST MA, ANNOTIGLESIA ON/ADDEN DUM YASMIN Butler, [facility] 6 16:33:00 History of clinical finding in subject 131501985 Completed 201210/27/2015 YASMIN Butler, [facility] 6 16:33:00 Tobacco user 653594183 Completed 201201/15/2014 RECORDED 02/14/20 13 11:35AM BY RUI PHILIPPE MA, ANNOTATI ON/ADDEN DUM YASMIN Allen, [facility] 8 10:39:31 Adult health examinat ion Completed 201201/15/2014 RECORDED 02/14/20 13 11:35AM BY RUI PHILIPPE MA, ANNOTIGLESIA ON/ADDEN DUM YASMIN Butler, [facility] 6 16:33:00 Finding by method Completed 201201/15/2014 RECORDED 02/14/20 13 11:35AM BY RUI PHILIPPE MA, ANNOTATI ON/ADDEN DUM YASMIN Butler, [facility] 6 16:33:00 Adult health examinat ion Completed 201202/04/2014 RECORDED 02/14/20 13 11:35AM BY RUI PHILIPPE MA, ANNOTATI ON/ADDEN DUM YASMIN Butler, [facility] 6 16:33:00 Finding by method Completed 201202/04/2014 RECORDED 02/14/20 13 11:35AM BY RUI PHILIPPE MA, ANNOTATI ON/ADDEN DUM YASMIN Butler, [facility] 6 16:33:00 Acute bronchit is 80653965 Completed 201201/15/2014 RECORDED 05/01/20 13 9:59AM BY RUI PHILIPPE MA, ANNOTATI ON/ADDEN DUM YASMIN Butler, [facility] 6 16:33:00 Acute bronchit is 74242970 Completed 201202/04/2014 RECORDED 05/01/20 13 9:59AM BY RUI PHILIPPE MA, ANNOTIGLESIA ON/ADDEN DUM YASMIN Butler, [facility] 6 16:33:00 Follow-u p encounte r Completed 201301/15/2014 RECORDED 08/16/19 14 11:01AM BY RD MCKEE MA, ANNOTIGLESIA ON/ADDEN DUM YASMIN Butler, [facility] 6 16:33:00 Influenz a vaccine needed 25751705419 06 Completed 201301/15/2014 RECORDED 08/16/19 14 11:00AM BY RD MCKEE MA, SHANI ON/ADDEN DUM Rui Cassi-Ma YASMIN johnson null, [facility] 6 16:33:00 Follow-u p encounte r Completed 201302/04/2014 RECORDED 08/16/19 14 11:01AM BY RD MCKEE MA, SHANI ON/ADDEN DUM Rui Cassi-Ma YASMIN johnson, [facility] 6 16:33:00 Influenz a vaccine needed 36501689074 06 Completed 201302/04/2014 RECORDED 08/16/19 14 11:00AM BY RD MCKEE MA, SHANI ON/ADDEN DUM Rui Cassi-Ma YASMIN johnson, [facility] 6 16:33:00 Chest pain 06620295 Completed 201301/15/2014 IMPRESSI ON: RESOLVED , ER DISCHARG E SUMMARY REVIEWED , STRESS ECHO 2/13 WAS NORMAL, REASSURA NCE GIVEN; RECORDED 09/08/19 14 7:57AM BY SHANI YUNG ON/ADDEN DUM Rui Cassi-Ma YASMIN johnson, [facility] 6 16:33:00 Chest pain 56810024 Completed 201302/04/2014 IMPRESSI ON: RESOLVED , ER DISCHARG E SUMMARY REVIEWED , STRESS ECHO 2/13 WAS NORMAL, REASSURA NCE GIVEN; RECORDED 09/08/19 14 7:57AM BY SHANI YUNG ON/ADDEN DUM Rui Cassi-Ma YASMIN johnson null, [facility] 6 16:33:00 Anxiety disorder 443725800 Completed 201301/15/2014 RECORDED 09/19/19 14 1:28PM BY ALEX HURST MA, ANNOTIGLESIA ON/ADDEN DUM Rui Cassi-Ma YASMIN johnson null, [facility] 6 16:33:00 Cough 40294527 Completed 201301/15/2014 RECORDED 09/19/19 14 1:28PM BY ALEX HURST MA, ANNOTATI ON/ADDEN DUM Rui Dmitry johnson MA null, [facility] 6 16:33:00 Anxiety disorder 596921901 Completed 201302/04/2014 RECORDED 09/19/19 14 1:28PM BY ALEX HURST MA, ANNOTATI ON/ADDEN DUM Rui Dmitry johnson MA null, [facility] 6 16:33:00 Cough 96192322 Completed 201302/04/2014 RECORDED 09/19/19 14 1:28PM BY ALEX HURST MA, ANNOTIGLESIA ON/ADDEN DUM Rui YASMIN Briones, [facility] 6 16:33:00 Allergic rhinitis 56758457 Active 2013 Not Available [facility] 2 13:24:12 Benign paroxysm al position al vertigo 287307070 Completed 201305/14/2022 Abdias Bowman PA-C [address] [facility] [address], [place], [address] , [facility] 2 15:22:17 Elevated blood-pr essure reading without diagnosi s of hyperten jv 285718737 Completed 201312/17/2022 Frederic Wong MD [address] [facility] [address], [place], [address] , [facility] 3 09:35:48 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 Completed 201302/25/2018 Tomer Norwood MD [address] [facility] [address], [place], [address] , [facility] 8 12:00:33 Disorder of autonomi c nervous system 05839266 Completed 201305/14/2022 Abdias Bowman PA-C [address] [facility] [address], [place], [address] , [facility] 2 15:22:48 Malaise and fatigue 725888960 Completed 201302/25/2018 Tomer Norwood MD [address] [facility] [address], [place], [address] , [facility] 8 12:00:29 Fibromyo sitis 89217216 Completed 201305/14/2022 Abdias Bowman PA-C [address] [facility] [address], [place], [address] , [facility] 2 15:25:33 Tobacco user 334546014 Completed 201301/16/2018 YASMIN Allen, [facility] 8 10:39:31 Adult health examinat ion Completed 201310/27/2015 [facility] 6 16:33:00 Hypercho lesterol emia 61155342 Completed 201302/25/2018 Tomer Norwood MD [address] [facility] [address], [place], [address] , [facility] 8 12:00:18 Pure hypercho lesterol emia 886291583 Completed 201302/25/2018 Tomer Norwood MD [address] [address], [place], [address] , [facility] 8 12:00:25 Hypothyr oidism 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 Active 2013 Not Available [facility] 2 13:24:13 Insomnia 073723809 Completed 201301/22/2018 Tomer Norwood MD [address] [facility] [address], [place], [address] , [facility] 8 12:25:06 Obesity 134084994 Completed 201305/14/2022 Abdias Bowman PA-C [address], [place], [address] , [facility] 2 15:25:49 Osteoart hritis 032566816 Completed 201305/14/2022 Abdias Bowman PA-C [address], [place], [address] , [facility] 2 15:24:56 Idiopath ic peripher al neuropat hy 99214268 Active 2013 Not Available [facility] 2 13:24:12 Tinnitus 31569154 Active 2013 Not Available [facility] 2 13:24:12 Vitamin D deficien cy 35645340 Completed 201309/12/2024 Frederic Wong MD [address], [place], [address] , [facility] 5 17:39:11 Pure hypercho lesterol emia 112646967 Completed 201302/04/2014 RECORDED 09/29/19 14 9:51AM BY RUI PHILIPPE MA, OFFICE VISIT Tomer Norwood MD [address], [place], [address] , [facility] 8 12:00:25 Atrophic vaginiti s 32885910 Completed 201409/05/2023 Frederic Wong MD [address], [place], [address] , [facility] 4 18:49:09 Osteoart hritis of hip 886677462 Active 2016 Not Available [facility] 2 13:24:13 Dental caries 03356286 Completed 201705/14/2022 Frederic Wong MD [address], [place], [address] , [facility] 5 14:49:32 Chronic maxillar y sinusiti s 52987525 Completed 201705/14/2022 Abdias Bowman PA-C [address], [place], [address] , [facility] 2 15:21:59 Chronic maxillar y sinusiti s 38699003 Active 2017 [facility] Irvin [facility] 4 14:44:08 Dental caries 25689719 Completed 201709/06/2023 Frederic Wong MD [address], [place], [address] , [facility] 5 14:49:32 Dental caries 92736812 Completed 201709/14/2024 Frederic Wong MD [address], [place], [address] , [facility] 5 14:49:32 Primary insomnia 4867487 Active 2017 Not Available [facility] 2 13:24:12 Osteoart hritis of joint of hand 53225166 Active 2018 B hands - cont to f/u c ATC Abdias Bowman PA-C [address], [place], [address] , [facility] 2 15:24:48 Intermit tent claudica tion 54025480 Completed 201909/05/2023 Frederic Wong MD [address], [place], [address] , [facility] 4 18:45:23 Abnormal liver function 95475642 Completed 201909/05/2023 Frederic Wong MD [address], [place], [address] , [facility] 4 18:39:28 Venous varices 050897239 Completed 202005/14/2022 Abdias Bowman PA-C [address] [facility] [address], [place], [address] , [facility] 2 15:26:20 Costal chondrit is 21042154 Completed 202005/14/2022 Abdias Bowman PA-C [address] [facility] [address], [place], [address] , [facility] 2 15:22:27 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 69651058505 735762 Active 2021 Not Available [facility] 2 13:24:13 Excessiv e daytime sleepine ss - normal night sleep 439257746 Completed 202109/05/2023 Frederic Wong MD [address] [facility] [address], [place], [address] , [facility] 4 18:49:17 Persiste nt cough 525702269 Completed 202105/14/2022 Abdias Bowman PA-C [address] [facility] [address], [place], [address] , [facility] 2 15:25:11 External hemorrho ids 08989024 Active 2021 Not Available [facility] 2 13:24:12 Dysuria 50879746 Completed 202105/14/2022 Abdias Bowman PA-C [address] [facility] [address], [place], [address] , [facility] 2 15:23:28 Constipa tion 07704935 Completed 202109/05/2023 RECORDED 06/23/20 12 10:31AM BY SHANI YUNG ON/MARILYN Wong MD [address] [facility] [address], [place], [address] , [facility] 4 18:49:05 Prediabe sandra 385580940 Active 2021 Abdias Bowman PA-C [address], [place], [address] , [facility] 2 15:26:20 History of SARS-CoV -2 [id number] 0485618 Active 2021 Melissa Lozano MA null, [facility] 2 14:45:38 COVID-19 974257663 Completed 202112/17/2022 Frederic Wong MD [address], [place], [address] , [facility] 3 09:35:26 Obstruct fe sleep apnea of adult 77185298948 03 Active 2022 Frederic Wong MD [address], [place], [address] , [facility] 3 09:55:07 Anal fissure 15522273 Active 2023 Frederic Wong MD [address], [place], [address] , [facility] 4 15:25:06 Body mass index 25-29 - overweig ht 909692972 Active 2023 Frederic Wong MD [address], [place], [address] , [facility] 4 15:38:14 Overweig ht 876602683 Active 2023 Frederic Wong MD [address], [place], [address] , [facility] 4 15:38:15 Transien t cerebral ischemia 263331452 Active 2023 Frederic Wong MD [address], [place], [address] , [facility] 4 15:39:15 Lighthea dedness 788981235 Completed 202303/12/2024 Frederic Wong MD [address], [place], [address] , [facility] 4 22:01:53 Intermit tent palpitat ions 716491369 Active 2023 Braeden Mcgregor, [facility] [address], [place], [address] , [facility] 4 14:42:45 Problem Notes None recorded. Procedures Surgical History Date Name Laterality Status Provider Name and Address Organization Details Recorded Time 03/18/20 25 radiographic imaging procedure completed Shirlene Junior [facility] 03/25/2025 11:59:45 09/15/19 25 Advanced Care Planning completed Frederic Wong MD [address], [place], [address], [facility] 09/12/2024 17:32:29 10/25/19 24 Endoscopic us exam esoph completed Kiara Valentino [facility] 10/26/2023 08:37:01 10/25/19 24 Egd diagnostic brush wash completed Kiara Valentino [facility] 10/27/2023 07:49:10 09/06/19 24 Advanced Care Planning completed Frederic Wong MD [address] [facility] [address], [place], [address], [facility] 09/05/2023 18:28:02 02/04/20 22 Most Recent Mammogram completed Pippa Irvin MA [facility] 09/06/2023 15:00:08 10/22/19 22 Date of Last Colonoscopy completed Pippa Irvin MA [facility] 09/06/2023 14:59:10 10/22/19 22 Colonoscopy completed Kiara Valentino [facility] 05/25/2023 10:59:03 01/21/20 20 Six-Item Cognitive Test completed Pippa Irvin MA [facility] 01/21/2020 13:50:47 03/31/20 18 Most Recent Bone Density completed Rui baca MA [facility] 04/19/2018 09:46:36 03/31/20 18 Dxa bone density study completed Rui baca MA [facility] 04/19/2018 09:46:29 03/31/20 18 Mammogram screening completed Jayla Mike [facility] 03/31/2018 16:06:37 07/25/19 18 Fall Risk Assessment completed Rui baca MA [facility] 07/25/2017 10:23:50 08/06/19 16 Fall Risk Assessment completed Rui baca MA [facility] 08/06/2015 10:59:10 08/06/19 16 Advanced Care Planning completed Tomer Norwood MD [address], [phone], [facility] 08/07/2015 07:59:56 06/27/19 12 Breast reduction completed Rui baca MA [facility] 08/06/2015 10:56:42 excision of cyst completed Rui baca MA [facility] 10/29/2019 10:12:56 Cataract Surgery completed Frederic Wong MD [address], [id number], [facility] 09/06/2023 15:29:09 total replacement of hip completed Frederic Wong MD [address], [id number], [facility] 09/06/2023 15:29:20 Imaging Results None recorded. Procedure Notes None recorded. Medical Equipment None Reported. Allergies Allergen ID Allergen Name Allergen Category Reaction Reaction Severity Criticality Documentation Date Start Date Code Code System Note Provider Name and Address Organization Details Recorded Time 43511 No known allergy (situatio n) Not available Not available Not available Not available 01/08/20142011 88903 6003 SNOMED COMME NT: RECOR DED 11/30 2:59P M BY DAVID JOHNSON MA, ANNOT ATION /ADDE NDUM; Not Available [facility] 4 13:27:40 89613 acetamino phen / oxycodone medicatio n dizziness Not available Not available 01/08/20142013 80920 3 RxNorm Rui dominguez MA null, [facility] 4 11:29:33 15023 pravastat in medicatio n myalgias (muscle pain) Not available Not available 08/12/2022 02721 RxNorm Frederic Wong MD [address] [facility] [address], [place], [phone], [facility] 3 15:39:40 26570 atorvasta tin medicatio n myalgias (muscle pain) Not available Not available 09/06/2023 93098 RxNorm Pippa Irvin MA null, [facility] 4 14:55:41 45739 rosuvasta tin medicatio n myalgias (muscle pain) Not available [facility] 09/06/2023 77368 2 RxNorm Frederic Wong MD [address] [facility] [address], [place], [phone], [facility] 4 15:24:22 Medications Name Sig Start Date Stop Date Status Note LastModified by Organization Details LastModified Time celecoxib 200 mg capsule Take 200 mg by oral route. 03/14 completed Not Available Not Available Not Available amoxicill in 500 mg capsule Take 4 capsules as needed by oral route. 09/08 completed Not Available Not Available Not Available azithromy farida 250 mg capsule DAILY 08/16 completed RECORDED 08/16/19 14 11:05AM BY RD MCKEE MA, OFFICE VISIT; Not Available Not Available Not Available Miralax 17 gram/dose oral powder Take 17 g as needed by oral route as directed . active OTC Not Available Not Available No t Available atorvasta tin 40 mg tablet Take 40 mg by oral route. 09/05 completed Not Available Not Available Not Available butalbita l-acetami nophen-ca ffeine 50 mg-325 mg-40 mg capsule THREE TIMES DAILY, NEEDED FOR HEADACHE 2013 active RECORDED 09/29/19 14 10:32AM BY TOMER NORWOOD MD, OFFICE VISIT; Not Available Not Available Not Available sennoside s 8.6 mg tablet Take 2 {tbl}s by oral route. 09/24 completed Not Available Not Available Not Available magnesium 500 mg tablet Take 1 tablet every day by oral route. 06/06 completed takes 400 mg Not Available Not Available Not Available acetamino phen 325 mg tablet Take 325 mg every 6 hours by oral route. 03/14 completed Not Available Not Available Not Available prednison e 10 mg tablet 08/06 completed Not Available Not Available Not Available clindamyc in HCl 300 mg capsule 10/10 completed Not Available Not Available Not Available trazodone 50 mg tablet 06/28 completed Not Available Not Available Not Available atorvasta tin 10 mg tablet Take 1 tablet every day by oral route at bedtime for 30 days. 10/05 completed Not Available Not Available Not Available azithromy farida 250 mg tablet TAKE 2 TABLETS (500 MG) BY ORAL ROUTE ONCE DAILY FOR 1 DAY THEN 1 TABLET (250 MG) BY ORAL ROUTE ONCE DAILY FOR 4 DAYS 08/13 completed Not Available Not Available Not Available pravastat in 40 mg tablet TAKE 1 TABLET BY MOUTH EVERYDAY AT BEDTIME 10/19 completed Not Available Not Available Not Available ibuprofen 800 mg tablet NEEDED 2007 completed RECORDED 08/25/19 12 10:35AM BY SHANI BECERRA ON/MARILYN ORELLANA; Not Available Not Available Not Available tizanidin e 4 mg tablet TAKE 1 TABLET BY MOUTH EVERY 12 HOURS FOR 10 DAYS 09/05 completed Not Available Not Available Not Available fluconazo le 150 mg tablet TAKE 1 TABLET (150 MG TOTAL) BY MOUTH ONCE FOR 1 DOSE. 03/18 completed Not Available Not Available Not Available doxepin 25 mg capsule TAKE 1 CAPSULE BY MOUTH EVERYDAY AT BEDTIME 10/26 completed Not Available Not Available Not Available citalopra m 10 mg tablet Take 1 tablet every day by oral route for 30 days. active Not Available Not Available No t Available valacyclo vir 1 gram tablet active Not Available Not Available Not Available minocycli ne 100 mg capsule 08/06 completed Not Available Not Available Not Available meloxicam 15 mg tablet TAKE 1 TABLET BY MOUTH EVERY DAY 03/14 completed Not Available Not Available Not Available phenazopy ridine 200 mg tablet active Not Available Not Available Not Available Artificia l Tears (dextran 70-hyprom ellose) eye drops 03/14 completed Not Available Not Available Not Available prednison e 20 mg tablet TAKE 1 TABLET BY MOUTH DAILY FOR 5 DAYS 08/29 completed Not Available Not Available Not Available topiramat e 25 mg tablet Take 1 tablet every day by oral route for 30 days. 09/05 completed Not Available Not Available Not Available omeprazol e 40 mg capsule,d elayed release TAKE 1 CAPSULE BY MOUTH EVERY DAY FOR REFLUX active Not Available Not Available No t Available acetamino phen 650 mg tablet Take 2 tablets every day by oral route as needed. 09/05 completed Not Available Not Available Not Available tramadol 50 mg tablet TAKE 2 TABLETS BY MOUTH AT BEDTIME 06/28 completed Not Available Not Available Not Available butalbita l-acetami nophen-ca ffeine 50 mg-325 mg-40 mg tablet TAKE 1 TO 2 TABLETS BY MOUTH EVERY DAY NEEDED FOR HEADACHE active Not Available Not Available No t Available amoxicill in 500 mg tablet 4 CAPS 1 HOUR PRIOR TO DENTAL PROCEDUR ES active Not Available Not Available No t Available simvastat in 40 mg tablet QD active RECORDED 08/12/19 11 2:45PM BY SHANI BECERRA ON/MARILYN ORELLANA; Not Available Not Available Not Available lidocaine -prilocai ne 2.5 %-2.5 % topical cream APPLY TOPICALL Y ONCE FOR 1 DOSE. active Not Available Not Available No t Available hydrocort isone acetate 25 mg rectal supposito ry INSERT 1 SUPPOSIT ORY RECTALLY DAILY FOR 7 DAYS 09/14 completed Not Available Not Available Not Available levothyro xine 75 mcg tablet Take 75 ugs by oral route. 03/14 completed Not Available Not Available Not Available cefadroxi l 500 mg capsule TAKE 1 CAPSULE BY MOUTH TWICE A DAY 09/24 completed Not Available Not Available Not Available meloxicam 7.5 mg tablet active Not Available Not Available Not Available oxycodone -acetamin ophen 5 mg-325 mg tablet 10/10 completed Not Available Not Available Not Available hydrocort isone 2.5 % topical cream with perineal applicato r APPLY DAILY TO SKIN TO AFFECTED AREA TWICE A DAY FOR 7 DAYS active Not Available Not Available No t Available levothyro xine 88 mcg tablet TAKE 1 TABLET BY MOUTH EVERY DAY active Not Available Not Available No t Available amoxicill in 875 mg tablet prn dental work 05/13 completed Not Available Not Available Not Available citalopra m 20 mg tablet TAKE 1 TABLET BY MOUTH EVERY DAY 2024 active Not Available Not Available Not Avai lable famotidin e 20 mg tablet Take 1 tablet twice a day by oral route as needed. 02/12 completed Not Available Not Available Not Available pravastat in 80 mg tablet Take 0.5 tablets every day by oral route at bedtime for 90 days. 07/24 completed Not Available Not Available Not Available prednisol one acetate 1 % eye drops,chiki pension INSTILL 1 DROP RIGHT EYE 4 TIMES A DAY FOR 1 WEEK 05/13 completed Not Available Not Available Not Available lorazepam 0.5 mg tablet TAKE 1 TABLET BY MOUTH EVERY DAY NEEDED 12/17 completed Not Available Not Available Not Available temazepam 15 mg capsule Take 1 capsule every day by oral route for 30 days. 06/28 completed Not Available Not Available Not Available temazepam 30 mg capsule TAKE ONE CAPSULE BY MOUTH EVERY DAY 06/28 completed Not Available Not Available Not Available amitripty line 10 mg tablet Take 1 tablet as needed by oral route. 03/17 completed for migraine s Not Available Not Available Not Available lorazepam 2 mg tablet Take by oral route for 2 days. 07/03 completed Not Available Not Available Not Available levothyro xine 50 mcg tablet TAKE 1 TABLET(S ) EVERY DAY BY ORAL ROUTE FOR 30 DAYS. 02/25 completed Not Available Not Available Not Available cephalexi n 500 mg capsule 10/10 completed Not Available Not Available Not Available simvastat in 20 mg tablet Take 1 tablet every day by oral route at bedtime. 03/17 completed Not Available Not Available Not Available erythromy farida 5 mg/gram (0.5 %) eye ointment Apply 1 applicat ion twice a day by ophthalm ic route for 7 days. 03/14 completed Not Available Not Available Not Available nortripty line 10 mg capsule Take 1 capsule every day by oral route as directed for 90 days. 08/29 completed Not Available Not Available Not Available naproxen sodium 550 mg tablet 10/10 completed Not Available Not Available Not Available Antivert 25 mg tablet TID/PRN 05/19 completed RECORDED 05/22/20 07 11:51AM BY TOMER NORWOOD MD, MEDICATI ON AUTO-MEGAN CTIVATIO N; Not Available Not Available Not Available polymyxin B sulfate 10,000 unit-trim ethoprim 1 mg/mL eye drops QID 10/28 completed Not Available Not Available Not Available metronida zole 0.75 % topical cream 06/28 completed Not Available Not Available Not Available butalbita l-aspirin -caffeine 50 mg-325 mg-40 mg tablet Q 4 HOURS/FL N 05/09 completed RECORDED 05/09/20 13 3:55PM BY TOMER NORWOOD MD, REFILL REQUEST; THIS ORDER DISCONTI NUED PER [facility]. Not Available Not Available Not Available docusate sodium 100 mg capsule Take 100 mg twice a day by oral route. 08/29 completed Not Available Not Available Not Available gabapenti n 300 mg capsule 1-2 capsules at bedtime daily as needed 10/05 completed Not Available Not Available Not Available Advil 200 mg tablet Take 2 tablets every day by oral route as needed. active Not Available Not Available No t Available aspirin 81 mg chewable tablet Chew 81 mg twice a day by oral route. 08/29 completed Not Available Not Available Not Available magnesium 250 mg tablet Take 1 tablet every day by oral route for 30 days. 03/22 completed Not Available Not Available Not Available zolpidem 5 mg tablet TAKE 1 TABLET BY MOUTH EVERYDAY AT BEDTIME NEEDED 2024 active Not Available Not Available Not Avai lable gabapenti n 100 mg capsule TAKE 1 CAPSULE BY MOUTH THREE TIMES A DAY FOR 30 DAYS 05/13 completed Not Available Not Available Not Available ergocalci ferol (vitamin D2) 1,250 mcg (50,000 unit) capsule TAKE 1 CAPSULE( S) EVERY WEEK BY ORAL ROUTE FOR 56 DAYS. 03/17 completed Not Available Not Available Not Available lorazepam 1 mg tablet TAKE 1 TABLET BY MOUTH DURING TRAVEL FOR 2 DAYS active Not Available Not Available No t Available estradiol 0.01% (0.1 mg/gram) vaginal cream APPLY A SMALL AMOUNT TO THE PERINEUM DAILY NEEDED active Not Available Not Available No t Available zolpidem 10 mg tablet TAKE 1/2 TABLET BY MOUTH AT BEDTIME 2015 active PA denied Not Available Not Available Not Available methylpre dnisolone 4 mg tablets in a dose pack Take by oral route per package instruct ions as tapering dose. 09/05 completed Not Available Not Available Not Available metronida zole 0.75 % topical gel 08/06 completed Not Available Not Available Not Available amoxicill in 875 mg-potass ium clavulana te 125 mg tablet 07/25 completed Not Available Not Available Not Available Vitamin B-12 1,000 mcg tablet Take 1 tablet every day by oral route. 03/22 completed per neurolog ist recommen dation Not Available Not Available Not Available magnesium 250 mg (as magnesium oxide) tablet Take 250 mg by oral route. 09/05 completed Not Available Not Available Not Available oxycodone 5 mg tablet TAKE 1 TABLET BY MOUTH EVERY 4 (FOUR) HOURS NEEDED FOR PAIN active Not Available Not Available No t Available Stool Softener 50 mg capsule Take 1 capsule every day by oral route as needed. active OTC Not Available Not Available No t Available Adult Aspirin 81 mg tablet DAILY 12/11 completed RECORDED 12/12/19 11 1:58PM BY RUI PHILIPPE MA, OFFICE VISIT;PU T ON IN THE HOSPITAL Not Available Not Available Not Available Vitamin D 50,000 unit capsule TWO TIMES WEEKLY 08/12 completed RECORDED 08/12/19 11 2:45PM BY SHANI BECERRA ON/MARILYN ORELLANA;THIS ORDER DISCONTI NUED PER [facility]-SP[facility] N. Not Available Not Available Not Available Vitamin B12 100 mcg tablet Take 1 tablet every day by oral route. active 03/22/25 reduced from 1,000 mcg per lab results Not Available Not Available Not Available ezetimibe 10 mg tablet Take 1 tablet every day by oral route in the evening for 90 days. 09/05 completed Not Available Not Available Not Available lidocaine 3 %-hydroco rtisone 0.5 % rectal cream Insert 1 applicat orful twice a day by rectal route as needed for 10 days. 09/05 completed Not Available Not Available Not Available rosuvasta tin 5 mg tablet TAKE 1 TABLET BY MOUTH EVERY DAY 05/13 completed not currentl y taking Not Available Not Available Not Available Alcohol Prep Pads APPLY 1 PAD EVERY 2 WEEKS BY TOPICAL ROUTE FOR 30 DAYS. active Not Available Not Available No t Available topiramat e 50 mg tablet TAKE 1 TABLET BY MOUTH EVERY DAY FOR 90 DAYS active Not Available Not Available No t Available nitrofura ntoin monohydra te/macroc rystals 100 mg capsule active Not Available Not Available Not Available pregabali n 75 mg capsule TAKE 1 CAPSULE BY MOUTH EVERY DAY FOR 90 DAYS active Not Available Not Available No t Available pregabali n 150 mg capsule TAKE 1 CAPSULE BY MOUTH AT BEDTIME active Not Available Not Available No t Available zolpidem ER 6.25 mg tablet,ex tended release,m ultiphase 06/28 completed SILVERSC RIPT Not Available Not Available Not Available alfalfa 1 capsule daily 12/17 completed Unknown Strength Not Available Not Available Not Available B Complex DAILY 12/11 completed RECORDED 12/12/19 11 1:58PM BY RUI PHILIPPE MA, OFFICE VISIT; Not Available Not Available Not Available Aspirin EC DAILY 09/28 completed RECORDED 09/29/19 14 10:02AM BY RUI PHILIPPE MA, OFFICE VISIT; Not Available Not Available Not Available amitripty line EACH EVENING 02/26 completed RECORDED 02/27/20 09 4:28PM BY TOMER NORWOOD MD, ANNOTATI ON/ADDEN DUM; Not Available Not Available Not Available Glucosami ne Complex DAILY 10/05 completed RECORDED 10/06/19 13 11:25AM BY ALEX HURST MA, OFFICE VISIT; Not Available Not Available Not Available blood pressure monitor DAILY MONITORI NG OF BP FOR HTN 02/21 completed RECORDED 02/26/20 10 9:39AM BY REBECA PEPPER, MEDICATI ON AUTO-MEGAN CTIVATIO N; Not Available Not Available Not Available Zostavax (PF) 19,400 unit/0.65 mL subcutane ous suspensio n SINGLE DOSE 01/11 completed RECORDED 02/06/20 13 10:17AM BY TOMER NORWOOD MD, MEDICATI ON AUTO-MEGAN CTIVATIO N; Not Available Not Available Not Available cholecalc iferol (vitamin D3) 1,250 mcg (50,000 unit) capsule Take 1 capsule every week by oral route for 56 days. 03/17 completed Not Available Not Available Not Available omeprazol e 20 mg tablet,de layed release Take 1 tablet every day by oral route. 08/06 completed takes very rarely Not Available Not Available Not Available diclofena c 1 % topical gel 08/06 completed Not Available Not Available Not Available cholecalc iferol (vitamin D3) 50 mcg (2,000 unit) tablet Take 1 tablet every day by oral route as needed. active takes in Winter months Not Available Not Available Not Available Vitamin D3 50 mcg (2,000 unit) capsule Take 1 capsule every day by oral route. 10/19 completed Not Available Not Available Not Available Vitamin D2 take one 5000 units tablet daily 08/05 completed Not Available Not Available Not Available Fiber (psyllium husk) 1 po qd 03/18 completed Not Available Not Available Not Available oxycodone 5 mg tablet,or al ONLY (not feeding tubes) Take 0 mg every 4 hours by oral route. 08/29 completed Not Available Not Available Not Available luliconaz ole 1 % topical cream 08/06 completed Not Available Not Available Not Available Repatha SureClick 140 mg/mL subcutane ous pen injector INJECT 1 ML UNDER THE SKIN EVERY 2 WEEKS active Not Available Not Available No t Available Repatha Pushtrone x 420 mg/3.5 mL subcutane ous wearable injector Inject 3.5 mL every month by subcutan eous route, for Cholestr ol. 07/18 completed Not Available Not Available Not Available BromSite 0.075 % eye drops PLACE 1 DROP into surgical eye(s) at bedtime 10/28 completed post-op cataract s Not Available Not Available Not Available Flonase Sensimist 27.5 mcg/actua tion nasal spray,chiki pension Take 2 sprays every day by nasal route at bedtime for 30 days. 08/13 completed Not Available Not Available Not Available Linzess 72 mcg capsule TAKE 1 CAPSULE BY MOUTH EVERY DAY active Not Available Not Available No t Available Adult Aspirin Regimen 81 mg tablet,de layed release Take 1 tablet every day by oral route. active Not Available Not Available No t Available Clenpiq 10 mg-3.5 gram-12 gram/160 mL oral solution TAKE 160 ML BY MOUTH DIRECTED FOLLOW INSTRUCT IONS PROVIDED BY OFFICE 05/26 completed Not Available Not Available Not Available Fluad Quad (65yr up)(PF) 60 mcg (15 mcg x 4)/0.5mL IM syringe PHARMACY ADMINIST ERED 03/17 completed Not Available Not Available Not Available ezetimibe 10 mg-rosuva statin 5 mg tablet Take 1 tablet every day by oral route as directed for 60 days. 01/26 completed Not Available Not Available Not Available ezetimibe 10 mg-rosuva statin 20 mg tablet active Not Available Not Available No t Available Vitals Date Recorded Body height Heart rate Oxygen saturation Body temperature Systolic And Diastolic Provider Name and Address Organization Details Last Updated DateTime 5 172.72 cm 73 /min 97 % 97.7 [degF] 99/66 mm[Hg] Rui dominguez MA [facility] 11:20:00 Social History Question Answer Notes LastModified by Organizat ion Details LastModified Time Tobacco Smoking Status Former Smoker 1997 YASMIN [facility] 09/14/2024 14:46:36 Do You Have An Advance Directive? Yes Salvador Hess Information not available 08/06/2015 Is Blood Transfusion Acceptable In An Emergency? Yes Information not available 08/06/2015 What Is Your Level Of Caffeine Consumption? Moderate Coffee, 2 X Day Information not available 04/22/2014 How Much Tobacco Do You Chew? None Information not available 08/06/2015 What Type Of Diet Are You Following? REGULAR Information not available 04/22/2014 Which Illicit Or Recreational Drugs Have You Used? None Information not available 08/06/2015 When Did You Quit Smoking? 16+yearssinc elastcigaret te Information not available 04/20/2021 Live Alone Or With Others? With Others (Shakir) Information not available 08/06/2015 Do You Take Precautions To Prevent Distracted Driving? Yes Information not available 08/06/2015 How Often Do You Need To Have Someone Help You When You Read Instructions, Pamphlets, Or Other Written Material From Your Doctor Or Pharmacy? Never Information not available 08/06/2015 Have You Served In The ? No Information not available 07/25/2017 Have You Or Anyone In Your Household Had Any Of The Following Symptoms In The Last 14 Days: Sore Throat, Cough, Chills, Body Aches For Unknown Reasons, Shortness Of Breath For Unknown Reasons, Loss Of Smell, Loss Of Taste, Fever At Or Greater Than 100 Degrees Fahrenheit? No [email or web address] Information not available 01/21/2020 Are You Or Anyone In Your Household A Health Care Provider Or Emergency Responder? No [email or web address] Information not available 01/21/2020 To The Best Of Your Knowledge Have You Been In Close Proximity To Any Individual Who Tested Positive For COVID-19? No Information not available 01/21/2020 *AWV ONLY* Are You Presently Prescribed Opioid Medication By PCP Or Specialist? If YES -Provider Assess The Benefit For Other, Non-opioid Pain Therapies Instead, Even If The Patient Does Not Have OUD But Is Possibly At Risk. No Information not available 03/17/2020 Have You Recently Traveled To A COVID-19 High Risk Area Or Gathering In The Last 10 Days? No Information not available 04/20/2021 What Was The Date Of Your Most Recent Tobacco Screening? 03/18/2025 Information not available 03/18/2025 How Many Children Do You Have? 2 Information not available 04/22/2014 What Is Your Current Pack Years? 10packyears Information not available 09/14/2024 Do You Use Protection During Sex? No Information not available 08/06/2015 Seat Belts Used Routinely Yes Information not available 08/06/2015 Are You Sexually Active? Yes Information not available 08/06/2015 Smoke Alarm In Home Yes Information not available 08/06/2015 At What Age Did You Start Smoking Tobacco? 26 1971 Information not available 09/14/2024 Are You Passively Exposed To Smoke? No Information not available 08/06/2015 How Much Tobacco Do You Smoke? 1 PPW Information not available 08/06/2015 Do You Use Sunscreen Routinely? No Information not available 08/06/2015 How Many Years Have You Smoked Tobacco? 26 Information not available 08/06/2015 Sex: Unknown Functional Status Question Answer Note LastModified by Organizat ion Details LastModified Time Do you use any illicit or recreational drugs? No Information not available 04/20/2021 Do you or have you ever used any other forms of tobacco or nicotine? No Information not available 04/20/2021 What is your level of alcohol consumption? Occasional 09/14/24 one gin and tonic once weekly and wine only occ. Information not available 03/18/2025 Do you or have you ever used smokeless tobacco? Never used smokeless tobacco Information not available 10/29/2019 Are you currently employed? No part-time Information not available 09/14/2024 Are you able to walk independently without assistance or assistive devices? YESWOREST Information not available 04/20/2021 Are you able to care for yourself independently? Yes Information not available 04/22/2014 What is your occupation? Retired hen[employer] Information not available 05/26/2022 Do you or have you ever used e-cigarettes or vape? Never used electronic cigarettes Information not available 10/29/2019 What is your exercise level? None Information not available 04/22/2014 Mental Status None recorded. Family History Relationship Description Onset Age of this Age Resolved Age Notes LastModified by Organization Details LastModified Time Mother Pneumonia 90 [email or web address] Not avai lable 12/19/2015 13:53:28 Father Alzheimer's disease 67 [email or web address] Not available 13:53:28 Brother Primary malignant neoplasm of kidney 79 [email or web address] Not available 13:53:28 Sister Essential hypertension [email or web address] Not available 12/19/2015 13:53:28 Sister Primary malignant neoplasm of lung 75 former smoker , had quit 20 yrs prior [email or web address] Not available 12/19/2015 13:53:28 Son Heart disease 43 [email or web address] Not available 12/17 09:09:54 Medical History No medical history recorded. Gynecological History Statement/Question Response Date of Last Colonoscopy 10/21/2021 Most Recent Mammogram 02/03/2022 Most Recent Bone Density 03/31/2018 Obstetrics History GPAL:G 0 P 0 0 0 0 Immunizations Vaccine Type Date Status Note Provider Nam e and Address Organization Details Recorded Time Influenza, split virus, trivalent, preservative 5 completed Not Available [facility] 08/05/2023 17:09:39 Influenza, split virus, trivalent, preservative 8 completed Not Available [facility] 08/05/2023 17:09:39 Influenza, high-dose, trivalent, PF 8 completed Not Available [facility] 08/05/2023 17:09:39 Influenza, high-dose, trivalent, PF 9 completed Not Available [facility] 08/05/2023 17:09:39 Influenza, high-dose, trivalent, PF 0 completed Not Available [facility] 08/05/2023 17:09:39 COVID-19, mRNA, LNP-S, PF, 100 mcg/0.5mL dose or 50 mcg/0.25mL dose 1 completed Not Available [facility] 08/05/2023 17:09:39 COVID-19, mRNA, LNP-S, PF, 100 mcg/0.5mL dose or 50 mcg/0.25mL dose 1 completed Not Available [facility] 08/05/2023 17:09:39 Influenza, adjuvanted, trivalent, PF 8 completed Not Available [facility] 08/05/[facility] 17:09:39 Influenza, high-dose, trivalent, PF 6 completed Not Available [facility] 08/05/2023 17:09:39 COVID-19, mRNA, LNP-S, PF, 100 mcg/0.5mL dose or 50 mcg/0.25mL dose 1 completed Not Available [facility] 08/05/2023 17:09:39 zoster live 3 completed Not Available [facility] 08/05/2023 17:09:39 Influenza, adjuvanted, quadrivalent, PF 0 completed Not Available [facility] 08/05/2023 17:09:39 Influenza, high-dose, quadrivalent, PF 2 completed Not Available [facility] 08/05/2023 17:09:39 Influenza, high-dose, quadrivalent, PF 1 completed Not Available [facility] 08/05/2023 17:09:39 Pneumococcal conjugate PCV 13 8 completed Not Available [facility] 08/05/2023 17:09:39 COVID-19, mRNA, LNP-S, PF, 30 mcg/0.3 mL dose, effie-sucrose 2 completed Not Available [facility] 08/05/2023 17:09:39 Td (adult), 2 Lf tetanus toxoid, preservative free, adsorbed 0 completed Not Available [facility] 08/05/2023 17:09:39 pneumococcal polysaccharide PPV23 0 completed Not Available [facility] 08/05/2023 17:09:39 zoster recombinant 4 completed Kiara ahumada, [facility] 01/30/2024 09:04:41 RSV, bivalent, protein subunit RSVpreF, diluent reconstituted, 0.5 mL, PF 4 completed Kiara Valentino null, [facility] 01/30/2024 09:04:41 Influenza, high-dose, trivalent, PF 4 completed Kiara Valentino null, [facility] 01/30/2024 09:04:41 zoster, unspecified formulation 5 completed Kiara ahumada, [facility] 11/29/2024 08:30:22 Pneumococcal conjugate PCV21, polysaccharide [id number] conjugate, PF 5 completed Kiraa Valentino null, [facility] 11/29/2024 08:30:22 zoster recombinant 5 completed Kiara Valentino null, [facility] 11/29/2024 08:30:22 Influenza, high-dose, quadrivalent, PF 3 completed Frederic Wong MD [address], [address], [facility] 05/14/2023 22:41:22 Tdap 9 completed Not Available [facility] 08/05/2023 17:09:39 Influenza, split virus, trivalent, preservative 3 completed Not Available [facility] 08/05/2023 17:09:39 Influenza, split virus, trivalent, preservative 4 completed Not Available [facility] 08/05/2023 17:09:39 zoster live 3 completed Not Available [facility] 08/05/2023 17:09:39 Influenza, high-dose, trivalent, PF 5 completed Frederic Wong MD [address], [phone], [facility] 03/18/2025 12:11:46 Past Encounters Encounter ID Performer Location Encounter Start Date Encounter Closed Date Diagnosis/Indication Diagnosis SNOMED-CT Code Diagnosis ICD10 Code Diagnosis IMO Codes Diagnosis Note [id number] Frederic Wong MD Main Office [address] [facility] YASMIN HANSEN [phone] 03/18/2025 11:04:38 03/18/2025 12:21:23 Influenza vaccine needed 8755455974 106 Z23 65 YEARS AND OLDER Fatigue 89934664 R53.83 57872824 Chronic constipation 236 006550 K59.09 727313 Prediabetes 739784157 R7 3.03 Gastroesop hageal reflux disease 074426111 K21.9 Anal fissure 69571637 K6 0.2 External hemorrhoids 239 75034 K64.4 Hypothyroidism 96254690 E03.9 Stable on current dose. Idiopathic peripheral neuropathy 16202292 G60.9 Following neurologis t. Obstructiv e sleep apnea of adult 9654777908 103 G47.33 Health Concerns Section Related Observation LastModified by Organization Detai ls LastModified Time None Recorded Concern Status LastModified by Organization Details LastModified Time None Recorded Payers Encounter Date Sequence Insurance Name Policy Number Policy Gama Covered Member ID Gmaa Member ID Guarantor Name 03/18/2025 1 MEDICARE B-[place]: [employer] Celine Hess [id number] Celine Hess 03/18/2025 2 [facility] INDEMNITY PLAN (INDEMNITY) [id number] Celine Hess [id number] Celine Hess Notes Date Note Type Note Provider Name and Address Organization Details Recorded Time 03/18/2025 text/html Patient presents for follow-up of chronic health concerns. Today, she reports worsening fatigue over the past 8 9 months. She has a baseline of chronic fatigue, but this has progressed. She reports a normal sleep pattern, though acknowledges that her exercise could be better. Fatigue is persistent and does not improve on weekends or vacations. She denies depression, anxiety, alcohol misuse, or psychosocial stressors. She does endorse occasional snoring. Past sleep study showed mild sleep apnea; however, she could not tolerate CPAP. Current medications include pregabalin (recent dose increase), topiramate, and zolpidem. She is aware these may contribute to fatigue. She denies shortness of breath, fever, rash, recent illness, or infectious risk factors. She has hypothyroidism, managed on levothyroxine, with recent labs (September) showing stable control. Additional complaints include chronic constipation and worsening anal fissures. She follows with gastroenterology and colorectal surgery, with prior trial of topical therapies (e.g., Botox creams) without relief. Colonoscopy is scheduled for May 2025. She describes constipation with several days between bowel movements, associated excessive gas, and blood per rectum related to fissures. She denies melena, nausea, vomiting, or weight loss. She notes heartburn controlled on medication. Frederic Wong MD [address] [address], [place], [address], [facility] 03/18/2025 12:14:24 OBGyn Episode No OBEpisode recorded.
--- OUTSIDE RECORDS SUMMARY | 2025-05-20 18:00 | XMS_ITS | Clinical Summary ---
Author Organization [facility] Address [address] [place] [address] Care Team Providers Care Metal Forger'S Assistant Name Role Phone Johan Ge MD Primary Care Provider [phone] Allergies Active Allergy Reactions Criticality Noted Date [...] Health Maintenance Due Date Last Done Comments Advance Care Planning 1945 Hepatitis C Virus Screening 1945 DTaP/Tdap/Td Vaccines (1 - Tdap) 1965 Pneumococcal Vaccines 50+ (1 of 1 - PCV) 1996 Zoster (Shingles) Vaccine (1 of 2) 1996 DXA Bone Density (Females,Ages 65 and older) 03/31/2020 03/31/2018 RSV Vaccine 50 years and older and Patients (1 - 1-dose 75+ series) 2021 Influenza Vaccine 01/25/2025 05/13/2023, , 04/20/2021, Additional history exists COVID-19 Vaccine ( season) 2025 04/09/2022, 01/06/2022, 05/06/2021, Additional history exists Hepatitis B Vaccines Aged Out No long er eligible based on patient's age to complete this topic Insurance MEDICARE PART A & B [facility] Care Teams Metal Forger'S Assistant Relationship Specialty Start Date End Date Johan Ge MD [address] [place] [address] PCP - General Family Medicine 05/16/22
--- OUTSIDE RECORDS SUMMARY | 2025-05-20 18:00 | XMS_ITS | Encounter Summary ---
Author Organization [facility] Address [address] [address] Phone Care Team Providers Care Plant Pathology Teacher Name Role Phone Tomer Norwood MD Primary Care Provider [phone] Johan Ge MD Primary Care Provider [phone] Reason for Visit * Reason Comments Other Encounter Details Date Type Department Care Team (Late Contact Info) Description 09/09/2016 Refill [facility] Orthoped[facility] at [place] [address] [address] Amelie Zapata MD [address] [place] [address] Other Social History Tobacco Use Types Packs/Day Years Used Date Smoking Tobacco: Never Cigarettes Qu it: 06/22/2001 Smokeless Tobacco: Never Alcohol Use Standard Drinks/Week Comments Yes 1 (1 standard drink = 0.6 oz pur e alcohol) Comments Unknown Sex and Gender Information Value Date Recorded Sex Assigned at Female 07/04/2017 9:31 AM EST Legal Sex Female 7:22 PM EST Gender Identity Female Sexual Orientation Straight documented as of this encounter Plan of Treatment Upcoming Encounters Date Type Department Care Team (Late Contact Info) Description 06/07/2025 Procedure Pass [facility] Endoscopy Department [address] [place] [address] 06/07/2025 1:00 PM EST Hospital Encounter [facility] Endoscopy Department [address] [place] [address] Celine Woody MD 75 [facility] [address] [place] [address] [email or web address] 06/07/2025 1:00 PM EST - 06/07/2025 1:40 PM EST Surgery [facility] Endoscopy Department [address] [place] [address] Celine Woody MD [address] [address] [email or web address] 08/28/2025 2:30 PM EST Office Visit [facility] 45 [facility] [address] [place] [address] Asim Liang MD 75 [facility] P[address]B-[address] [place] [address] [email or web address] Scheduled Procedures Name Priority Associated Diagnoses Date/Ti me COLONOSCOPY History of colonic polyps History of anal fissures 06/07/2025 1:00 PM EST documented as of this encounter Visit Diagnoses Not on filedocumented in this encounter Care Teams Plant Pathology Teacher Relationship Specialty Start Date End Date Tomer Norwood MD [address] [place] [phone] PCP - General Internal Medicine 07/08/16 06/23/23 Johan Ge MD [address] [phone] PCP - General Family Medicine 06/24/23 documented as of this encounter Additional Source Comments The information contained in this document represents components of the legal health record. It is not the complete legal health record.[facility]
--- OUTSIDE RECORDS SUMMARY | 2025-05-20 18:00 | XMS_ITS | Encounter Summary ---
Author Organization [facility] Address [address] [employer] [facility] [address] [place] [address] Phone Care Team Providers Care Cemetery Vault Installer Name Role Phone Johan Ge MD Primary Care Provider [phone] Encounter Details Date Type Department Care Team (Late st Contact Info) Description 10/09/2024 Procedure Pass [facility] Periop 1st floor [address] [place] [address] Social History Tobacco Use Types Packs/Day Years Used Date Smoking Tobacco: Never Cigarettes Qu it: 06/22/2001 Smokeless Tobacco: Never Alcohol Use Standard Drinks/Week Comments Yes 1 (1 standard drink = 0.6 oz pur e alcohol) Once a week 1 drink Education Answer Date Recorded Are you interested in more education? Not on hood e 10/21/2022 Are you concerned about learning? Not on file 10/21/2022 No 10/21/2022 No 10/21/2022 Digital Access Answer Date Recorded No 11/21/2022 No 11/21/2022 Reliable internet access at home? Not on file 11/21/2022 Device with a working camera? Not on file Intimate Partner Violence Answer Date R ecorded Are you denied basic needs s uch as food, clothing, or medical care? Deferred 09/25/2024 In the past 12 months have y ou been in a relationship with a person who hurts, threatens, or tries to control you? Deferred 09/25/2024 Are you denied basic needs s uch as food, clothing, or medical care? Deferred 09/25/2024 In the past 12 months have y ou been in a relationship with a person who hurts, threatens, or tries to control you? 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 Not on file Not on file documented as of this encounter Plan of Treatment Upcoming Encounters Date Type Department Care Team (Late st Contact Info) Description 06/07/2025 Procedure Pass [facility] Endoscopy Department [address] [place] [address] 06/07/2025 1:00 PM EST Hospital Encounter [facility] Endoscopy Department [address] [place] [address] Celine Woody MD [address] [place] [address] [email or web address] 06/07/2025 1:00 PM EST - 06/07/2025 1:40 PM EST Surgery [facility] Endoscopy Department [address] [place] [address] Celine Woody MD [address] [place] [address] [email or web address] 08/28/2025 2:30 PM EST Office Visit [facility] 45 [facility] [address] [place] [address] Asim Liang MD [address] [place] [address] [address] [place] [address] Scheduled Procedures Name Priority Associated Diagnoses Date/Ti me COLONOSCOPY History of colonic polyps History of anal fissures 06/07/2025 1:00 PM EST documented as of this encounter Visit Diagnoses Not on filedocumented in this encounter Care Teams Cemetery Vault Installer Relationship Specialty Start Date End Date Johan Ge MD [address] [facility] [address] [place] [address] PCP - General Family Medicine 06/24/23 documented as of this encounter Additional Source Comments The information contained in this document represents components of the legal health record. It is not the complete legal health record.[facility]
--- OUTSIDE RECORDS SUMMARY | 2025-05-20 18:00 | XMS_ITS | Encounter Summary ---
Author Organization [facility] Address [address] [facility] [address] [place] [address] Phone Care Team Providers Care Scientific Recruiter Name Role Phone Tomer Norwood MD Primary Care Provider [phone] Johan Ge MD Primary Care Provider [phone] Encounter Details Date Type Department Care Team (Late st Contact Info) Description 07/19/2016 Procedure Pass [facility] Periop [address] [place] [address] Social History Tobacco Use Types Packs/Day Years [...] st Contact Info) Description 06/07/2025 Procedure Pass [facility] Endoscopy Department [address] [place] [address] 06/07/2025 1:00 PM EST Hospital Encounter [facility] Endoscopy Department [address] [place] [address] Celine Woody MD [address] [place] [address] [email or web address] 06/07/2025 1:00 PM EST - 06/07/2025 1:40 PM EST Surgery [facility] Endoscopy Department [address] [place] [address] Celine Woody MD 75 [facility] [address] [place] [address] [email or web address] 08/28/2025 2:30 PM EST Office Visit [facility] 45 [facility] ASB2-2 [place] [address] Asim Liang MD 75 [facility] PBB[address]B-[address] [place] [address] [email or web address] Scheduled Procedures Name Priority Associated Diagnoses Date/Ti me COLONOSCOPY History of colonic polyps History of anal fissures 06/07/2025 1:00 PM EST documented as of this encounter Visit Diagnoses Not on filedocumented in this encounter Care Teams Scientific Recruiter Relationship Specialty Start Date End Date Tomer Norwood MD [address] [phone] PCP - General Internal Medicine 07/08/16 06/23/23 [place] [address] [place] [phone] PCP - General Family Medicine 06/24/23 documented as of this encounter Additional Source Comments The information contained in this document represents components of the legal health record. It is not the complete legal health record.[facility]
--- OUTSIDE RECORDS SUMMARY | 2025-05-20 18:00 | XMS_ITS | Encounter Summary ---
Author Organization [facility] Address [address] [facility] [employer] [facility] [address] [place] [address] Phone Care Team Providers Care Geotechnical Department Manager Name Role Phone Johan Ge MD Primary Care Provider [phone] Encounter Details Date Type Department Care Team (Late st Contact Info) Description 09/17/2024 Prep for Surgery [facility] General & GI Surgery 75 [facility] [address] [place] [address] Los Pedraza MD 45 [facility] 3rd [place] [address] [email or web address] Social History Tobacco Use Types Packs/Day Years Used Date Smoking Tobacco: Never Cigarettes Qu it: 06/22/2001 Smokeless Tobacco: Never Alcohol Use Standard Drinks/Week Comments Yes 1 (1 standard drink = 0.6 oz pur e alcohol) Education Answer Date Recorded Are you interested [...] uch as food, clothing, or medical care? No 02/15/2024 In the past 12 months have y ou been in a relationship with a person who hurts, threatens, or tries to control you? No 02/15/2024 Are you denied basic needs s uch as food, clothing, or medical care? No 02/15/2024 In the past 12 months have y ou been in a relationship with a person who hurts, threatens, or tries to control you? 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 Not on file Not on file documented as of this encounter Plan of Treatment Upcoming Encounters Date Type Department Care Team (Late st Contact Info) Description 06/07/2025 Procedure Pass [facility] Endoscopy Department [address] [place] [address] 06/07/2025 1:00 PM EST Hospital Encounter [facility] Endoscopy Department [address] [place] [address] Celine Woody MD [address] [place] [address] [email or web address] 06/07/2025 1:00 PM EST - 06/07/2025 1:40 PM EST Surgery [facility] Endoscopy Department [address] [place] [address] Celine Woody MD [address] [place] [address] [email or web address] 08/28/2025 2:30 PM EST Office Visit [facility] 45 [facility] [address] [place] [address] Asim Liang MD 75 [facility] [address] [place] [address] Scheduled Procedures Name Priority Associated Diagnoses Date/Ti me COLONOSCOPY History of colonic polyps History of anal fissures 06/07/2025 1:00 PM EST documented as of this encounter Visit Diagnoses Not on filedocumented in this encounter Care Teams Geotechnical Department Manager Relationship Specialty Start Date End Date Johan Ge MD [address] [phone] PCP - General Family Medicine 06/24/23 documented as of this encounter Additional Source Comments The information contained in this document represents components of the legal health record. It is not the complete legal health record.[facility]
--- OUTSIDE RECORDS SUMMARY | 2025-05-20 18:00 | XMS_ITS | Encounter Summary ---
Author Organization [facility] Address 399 [facility] [address] [place] [address] Phone Care Team Providers Care Butcher Chicken And Fish Name Role Phone Tomer Norwood MD Primary Care Provider [phone] Johan Ge MD Primary Care Provider [phone] Encounter Details Date Type Department Care Team (Late st Contact Info) Description 07/08/2016 Procedure Pass [facility] Periop [address] [place] [address] Social History Tobacco Use Types Packs/Day Years Used Date Smoking Tobacco: Former Cigarettes Q uit: 06/22/2001 Alcohol Use Standard Drinks/Week Comments Yes 1 [...] st Contact Info) Description 06/07/2025 Procedure Pass [facility] Endoscopy Department [address] [place] [address] 06/07/2025 1:00 PM EST Hospital Encounter [facility] Endoscopy Department [address] [place] [address] Celine Woody MD [address] [place] [address] [email or web address] 06/07/2025 1:00 PM EST - 06/07/2025 1:40 PM EST Surgery [facility] Endoscopy Department [address] [place] [address] Celine Woody MD 75 [facility] [address] [place] [address] [email or web address] 08/28/2025 2:30 PM EST Office Visit [facility] 45 [facility] ASB2-[address] [place] [address] Asim Liang MD 75 [facility] PBB[address]B-[address] [place] [address] [email or web address] Scheduled Procedures Name Priority Associated Diagnoses Date/Ti me COLONOSCOPY History of colonic polyps History of anal fissures 06/07/2025 1:00 PM EST documented as of this encounter Visit Diagnoses Not on filedocumented in this encounter Care Teams Butcher Chicken And Fish Relationship Specialty Start Date End Date Tomer Norwood MD [address] [phone] PCP - General Internal Medicine 07/08/16 06/23/23 Johan Ge MD [address] [phone] PCP - General Family Medicine 06/24/23 documented as of this encounter Additional Source Comments The information contained in this document represents components of the legal health record. It is not the complete legal health record.[facility]
--- OUTSIDE RECORDS SUMMARY | 2025-05-20 18:00 | XMS_ITS | Data Portability ---
Author Organization [facility], Main Office Address [address] [place] [address] Care Team Providers Care Him Analyst Name Role Phone RAJESH RAMIRES Development Specialist MEKHI CASAS Long Wall Shear Operator [phone] BRISEIDA SHABAZZ Livestock Laborer REBA TRIANA Rn Informatics CHRISTI GREGORY Phys. Med[facility] Rehab FAMILIA SOLIS Lead Mobile Developer FREDERIC WONG Primary Care Provider [facility] Urologist ROXANA HIGGINS Neurologist CELINE ROQUE Long Wall Shear Operator FERNANDO WALLER Livestock Laborer Assessment Encounter Date Assessment Date Assessment LastModified [...] Organization Details Last Modified Time Details Appointments [id number] 0 2025 11:15A Dania Wong MD Not available Not available Not available Lab HbA1 c (hem oglo bin A1c) , bloo d 2024 025 CASSIE [facility] (Centralized Electronic Ordering - All Locations), Patient Can Go To The Location Of Their Choice, 03/20/2025 06:08:37 CBC w/ auto diff 2024 025 CASSIE [facility] ([facility]ized [facility] Ordering - All Locations), Patient Can Go To The Location Of Their Choice, 03/20/2025 06:08:34 CMP, seru m or plas ma 2024 025 CASSIE [facility] ([facility]ized [facility] Ordering - All Locations), Patient Can Go To The Location Of Their Choice, 03/20/2025 06:08:35 ron min D, 25-h ydro xy, tota l, seru m 2024 025 CASSIE [facility] (Centralized [facility] Ordering - All Locations), Patient Can Go To The Location Of Their Choice, 03/20/2025 06:08:38 bereket loaizai IgG + IgM + tota l marine l, IA, seru m 2024 025 CASSIE [facility] ([facility] Ordering - All Locations), Patient Can Go To The Location Of Their Choice, 03/20/2025 06:08:38 infl jam tion marine l, seru m or plas ma 2024 025 CASSIE [facility] ([facility] Ordering - All Locations), Patient Can Go To The Location Of Their Choice, 03/20/2025 06:08:37 phos phor us, seru m or plas ma 2024 025 CASSIE [facility] (Centralized [facility] Ordering - All Locations), Patient Can Go To The Location Of Their Choice, 03/20/2025 06:08:39 TSH + free T4, seru m 2024 025 CASSIE [facility] ([facility]ized [facility] Ordering - All Locations), Patient Can Go To The Location Of Their Choice, 03/20/2025 06:08:34 urin yamil is comp lete , refl ex cult ure 2024 025 CASSIE [facility] ([facility] Ordering - All Locations), Patient Can Go To The Location Of Their Choice, 03/20/2025 06:08:36 telma lami n and gavin te jaja l, seru m 2024 025 CASSIE [facility] ([facility]ized [facility] Ordering - All Locations), Patient Can Go To The Location Of Their Choice, 03/20/2025 06:08:36 iron + TIBC + ferr itin , seru m 2024 025 CASSIE [facility] ([facility] Ordering - All Locations), Patient Can Go To The Location Of Their Choice, 03/20/2025 06:08:33 HbA1 c (hem oglo bin A1c) , bloo d 2024 025 [facility], [address], [place], [address], 10/17/2024 16:07:47 lipi d marine l, seru m 2024 025 [email or web address] [facility], [address] [place], [address], 12/17/2024 13:40:24 CBC w/ auto diff 2024 025 [facility]SIE [facility] ([facility] Ordering - All Locations), Patient Can Go To The Location Of Their Choice, [id number] 10/17/2024 16:07:46 CMP, seru m or plas ma 2024 025 [email or web address] [facility] ([facility] Ordering - All Locations), Patient Can Go To The Location Of Their Choice, [id number] 09/24/2024 10:44:05 TSH + free T4, seru m 2024 025 [facility], [address], [place], [address], 10/17/2024 16:07:45 urin yamil is comp lete , refl ex cult ure 2023 024 CASSIE [facility] ([facility] Ordering - All Locations), Patient Can Go To The Location Of Their Choice, [id number] 01/08/2024 08:07:12 urin yamil is, dips tick 2023 024 [email or web address] In-Office Order, Internal Use Only DO Not Attach Compendium DO Not Attach Compendium, Do Not Delete/merge, [id number] 01/07/2024 12:12:48 Referral qiana roen tero logi st refe rral - Need s colo n canc er scre enin g 3yr reca ll due 10/21 025 [email or web address] [facility], [address], [place], [address], 09/21/2024 10:24:50 urol ogis t refe rral 2023 024 [facility], [address], [place], [address], 01/17/2024 15:40:18 Procedures colo nosc opy scre enin g (PRO C) 2024 025 [email or web address] In-Office Order, Internal Use Only DO Not Attach Compendium DO Not Attach Compendium, Do Not Delete/merge, [id number] 09/14/2024 15:22:03 Surgeries None facundo rded . Imaging XR, abdo men, comp lete 2024 025 [facility], [address] [place], [address], 03/20/2025 17:22:06 elec troc ardi ogra m 2024 025 [email or web address] In-Office Order, Internal Use Only DO Not Attach Compendium DO Not Attach Compendium, Do Not Delete/merge, [id number] 03/18/2025 12:21:23 XR, ches t, 2 view 2024 025 [facility], [address] [place], [address], 03/19/2025 12:13:15 US, blad oscar - pls do volu me stud ies. [email or web address] [place] [address] (Ultrasound), [address] [place], [address], 01/12/2024 08:22:32 Medication Orders Linz ess 72 mcg caps e 2024 025 [id number], [address], [place], [address], 03/18/2025 12:11:46 preg abal in 75 mg caps ule 2024 025 [id number] 2 [facility], [address] [place], [address], 11/29/2024 07:43:17 Repa dilan Push rose ex 420 mg/3 .5 mL subc utan eous wear able inje ctor 2023 024 [email or web address] os [id number], [address] [place], [address], 07/18/2024 13:18:57 Patient TargetsNo targets recorded. Patient Instructions Encounter Date Encounter Id Patient Instructions Last Modified By Organization Details Last Modified Time 01/07/2024 [id number] painful urinatio n (dysuria): care instructions ckokar Not available 01/07/2024 10:02:16 Female Urinary T ract Infection (UTI): Care Instructions ckokar Not available 01/07/2024 10:02:16 03/14/2024 [id number] tinnitus: care instructions ckokar Not available 03/14/2024 15:05:01 painful urinatio n (dysuria): care instructions ckokar Not available 03/14/2024 15:05:01 transient ischem ic attack: care instructions ckokar Not available 03/14/2024 15:05:01 high cholesterol : care instructions ckokar Not available 03/14/2024 15:05:01 hypothyroidism: care instructions ckokar Not available 03/14/2024 15:05:01 09/14/2024 [id number] advance care planning: care instructions ckokar Not available 09/14/2024 15:04:17 When You Want to Lose Weight: Care Instructions ckokar Not available 09/14/2024 15:04:17 preventing falls : care instructions ckokar Not available 09/14/2024 15:04:17 well visit, over 65: care instructions ckokar Not available 09/14/2024 15:04:17 learning about c olon cancer ckokar Not available 09/14/2024 15:04:17 hypothyroidism: care instructions ckokar Not available 09/14/2024 15:04:17 03/18/2025 [id number] anal fissure: ca re instructions ckokar Not available 03/18/2025 12:13:04 gastroesophageal reflux disease (GERD): care instructions ckokar Not available 03/18/2025 12:13:04 hemorrhoids: car e instructions ckokar Not available 03/18/2025 12:13:04 hypothyroidism: care instructions ckokar Not available 03/18/2025 12:13:04 Reason for Referral Urologist Referral for Cysti tis Referring Physician: Frederic Wong, Family Medicine, Encounter Date: 01/07/2024 Long Wall Shear Operator Referral for Screening for malignant neoplasm of colon Needs colon cancer screening 3yr recall due 10/21/24 Referring Physician: Frederic Wong, Family Medicine, Encounter Date: 09/14/2024 Results Created Date Observation Date Name Description Value Unit Range Abnormal Flag Note LastModifiedBy Organization Detail LastModifiedTime 01/07/20 24 01/08/2024 UA/M W/RFL X CULTU RE, COMP specific gravity 1.016 1.005- 1.030 Not Available [facility] ([facility]) [address], [place], [address], 01/08/2024 08:07:12 01/07/20 24 01/08/2024 UA/M W/RFL X CULTU RE, COMP pH 7.0 5.0-7. 5 Not Available [facility] ([facility]) [address], [place], [address], 01/08/2024 08:07:12 01/07/20 24 01/08/2024 UA/M W/RFL X CULTU RE, COMP urine-color Yellow yellow Not Available [facility] ([facility]) [address], [place], [address], 01/08/2024 08:07:12 01/07/20 24 01/08/2024 UA/M W/RFL X CULTU RE, COMP appearance Clear clear Not Available [facility] ([facility]) [address] [place], [address], 01/08/2024 08:07:12 01/07/20 24 01/08/2024 UA/M W/RFL X CULTU RE, COMP WBC esterase Negati ve negati ve Not Available [facility] ([facility]) [address] [place], [address], 01/08/2024 08:07:12 01/07/20 24 01/08/2024 UA/M W/RFL X CULTU RE, COMP protein Negati ve negati ve/tra ce Not Available [facility] ([facility]) [address], [place], [address], 01/08/2024 08:07:12 01/07/20 24 01/08/2024 UA/M W/RFL X CULTU RE, COMP glucose Negati ve negati ve Not Available [facility] ([facility]) [address], [place], [address], 01/08/2024 08:07:12 01/07/20 24 01/08/2024 UA/M W/RFL X CULTU RE, COMP ketones Negati ve negati ve Not Available [facility] ([facility]) [address], [place], [address], 01/08/2024 08:07:12 01/07/20 24 01/08/2024 UA/M W/RFL X CULTU RE, COMP occult blood Negati ve negati ve Not Available [facility] ([facility]) [address], [place], [address], 01/08/2024 08:07:12 01/07/20 24 01/08/2024 UA/M W/RFL X CULTU RE, COMP bilirubin Negati ve negati ve Not Available [facility] ([facility]) [address] [place], [address], 01/08/2024 08:07:12 01/07/20 24 01/08/2024 UA/M W/RFL X CULTU RE, COMP urobilinogen ,semi-qn 0.2 mg/dL 0.2-1. 0 Not Available [facility] ([facility]) [address] [place], [address], 01/08/2024 08:07:12 01/07/20 24 01/08/2024 UA/M W/RFL X CULTU RE, COMP nitrite, urine Negati ve negati ve Not Available [facility] ([facility]) [address] [place], [address], 01/08/2024 08:07:12 01/07/20 24 01/08/2024 UA/M W/RFL X CULTU RE, COMP microscopic examination Commen t Micro scopi c follo ws if indic ated. Not Available [facility] ([facility]) [address], [place], [address], 01/08/2024 08:07:12 01/07/20 24 01/08/2024 UA/M W/RFL X CULTU RE, COMP microscopic examination See below: Micro scopi c was indic ated and was perfo rmed. Not Available [facility] ([facility]) [address], [place], [address], 01/08/2024 08:07:12 01/07/20 24 01/08/2024 UA/M W/RFL X CULTU RE, COMP WBC None seen /hpf 0 - 5 Not Available [facility] ([facility]) [address], [place], [address], 01/08/2024 08:07:12 01/07/20 24 01/08/2024 UA/M W/RFL X CULTU RE, COMP RBC None seen /hpf 0 - 2 Not Available [facility] ([facility]) [address], [place], [address], 01/08/2024 08:07:12 01/07/20 24 01/08/2024 UA/M W/RFL X CULTU RE, COMP epithelial cells (non renal) None seen /hpf 0 - 10 Not Available [facility] ([facility]) [address], [place], [address], 01/08/2024 08:07:12 01/07/20 24 01/08/2024 UA/M W/RFL X CULTU RE, COMP epithelial cells (renal) CLUB ATTENDANT Not Available [facility] ([facility]) [address], [place], [address], 01/08/2024 08:07:12 01/07/20 24 01/08/2024 UA/M W/RFL X CULTU RE, COMP casts None seen /lpf none seen Not Available [facility] ([facility]) [address], [place], [address], 01/08/2024 08:07:12 01/07/20 24 01/08/2024 UA/M W/RFL X CULTU RE, COMP cast type CLUB ATTENDANT Not Available [facility] ([facility]) [address], [place], [address], 01/08/2024 08:07:12 01/07/20 24 01/08/2024 UA/M W/RFL X CULTU RE, COMP crystals CLUB ATTENDANT Not Available [facility] ([facility]) [address], [place], [address], 01/08/2024 08:07:12 01/07/20 24 01/08/2024 UA/M W/RFL X CULTU RE, COMP crystal type CLUB ATTENDANT Not Available [facility] ([facility]) [address], [place], [address], 01/08/2024 08:07:12 01/07/20 24 01/08/2024 UA/M W/RFL X CULTU RE, COMP mucus threads CLUB ATTENDANT Not Available [facility] ([facility]) [address], [place], [address], 01/08/2024 08:07:12 01/07/20 24 01/08/2024 UA/M W/RFL X CULTU RE, COMP bacteria None seen none seen/f ew Not Available [facility] ([facility]) [address], [place], [address], 01/08/2024 08:07:12 01/07/20 24 01/08/2024 UA/M W/RFL X CULTU RE, COMP yeast CLUB ATTENDANT Not Available [facility] ([facility]) [address] [place], [address], 01/08/2024 08:07:12 01/07/20 24 01/08/2024 UA/M W/RFL X CULTU RE, COMP trichomonas CLUB ATTENDANT Not Available [facility] ([facility]) [address], [place], [address], 01/08/2024 08:07:12 01/07/20 24 01/08/2024 UA/M W/RFL X CULTU RE, COMP comment CLUB ATTENDANT Not Available [facility] ([facility]) [address], [place], [address], 01/08/2024 08:07:12 01/07/20 24 01/08/2024 UA/M W/RFL X CULTU RE, COMP urinalysis reflex Commen t This speci men will not refle x to a Urine Cultu re. Not Available [facility] ([facility]) [address], [place], [address], 01/08/2024 08:07:12 01/07/20 24 01/07/2024 urina lysis , dipst ick Leukocytes Negati ve Not Available In-Office Order Internal Use Only DO Not Attach Compendium DO Not Attach Compendium, Do Not Delete/merge, 01/06/2024 19:30:12 01/07/20 24 01/07/2024 urina lysis , dipst ick Nitritie negati ve Not Available In-Office Order Internal Use Only DO Not Attach Compendium DO Not Attach Compendium, Do Not Delete/merge, 01/06/2024 19:30:12 01/07/20 24 01/07/2024 urina lysis , dipst ick Urobilinogen .2 Not Available In-Of fice Order Internal Use Only DO Not Attach Compendium DO Not Attach Compendium, Do Not Delete/merge, 01/06/2024 19:30:12 01/07/20 24 01/07/2024 urina lysis , dipst ick Protein Negati ve Not Available In-Office Order Internal Use Only DO Not Attach Compendium DO Not Attach Compendium, Do Not Delete/merge, 01/06/2024 19:30:01/07/2001/07/2024 urina lysis , dipst ick pH 6.5 Not Available In-Office Order Internal Use Only DO Not Attach Compendium DO Not Attach Compendium, Do Not Delete/merge, 01/06/2024 19:30:01/07/20 24 01/07/2024 urina lysis , dipst ick Blood Negati ve Not Available In-Office Order Internal Use Only DO Not Attach Compendium DO Not Attach Compendium, Do Not Delete/merge, 01/06/2024 19:30:01/07/20 24 01/07/2024 urina lysis , dipst ick Specific [place] 1.015 Not Available In-Off ice Order Internal Use Only DO Not Attach Compendium DO Not Attach Compendium, Do Not Delete/merge, 01/06/2024 19:30:01/07/20 24 01/07/2024 urina lysis , dipst ick Ketone Negati ve Not Available In-Office Order Internal Use Only DO Not Attach Compendium DO Not Attach Compendium, Do Not Delete/merge, 01/06/2024 19:30:01/07/20 24 01/07/2024 urina lysis , dipst ick Bilirubin Negati ve Not Available In-Office Order Internal Use Only DO Not Attach Compendium DO Not Attach Compendium, Do Not Delete/merge, 01/06/2024 19:30:01/07/20 24 01/07/2024 urina lysis , dipst ick Glucose Negati ve Not Available In-Office Order Internal Use Only DO Not Attach Compendium DO Not Attach Compendium, Do Not Delete/merge, 01/06/2024 19:30:01/07/20 24 01/07/2024 urina lysis , dipst ick Appearance Clear Not Available In-Offi ce Order Internal Use Only DO Not Attach Compendium DO Not Attach Compendium, Do Not Delete/merge, 01/06/2024 19:30:12 01/07/20 24 01/07/2024 urina lysis , dipst ick Color Yellow Not Available In-Office Order Internal Use Only DO Not Attach Compendium DO Not Attach Compendium, Do Not Delete/merge, [id number] 01/06/2024 19:30:12 01/19/20 24 01/20/2024 TSH+F REE T4 TSH 1.860 uIU/m L 0.450- 4.500 normal Not Available [facility] ([facility]) [address] [place], [address], 01/20/2024 12:06:53 01/19/2001/20/2024 TSH+F REE T4 T4,free(dire ct) 1.31 NG/dL 0.82-1 .77 normal Not Available [facility] ([facility]) [address] [place], [address], 01/20/2024 12:06:53 01/19/20 24 01/20/2024 BASIC METAB OLIC PANEL (8) glucose 108 mg/dL 70-99 above high normal Not Available [facility] ([facility]) [address] [place], [address], 01/20/2024 12:06:54 01/19/20 24 01/20/2024 BASIC METAB OLIC PANEL (8) BUN 10 mg/dL 8-27 normal Not Available [facility] ([facility]) [address] [place], [address], 01/20/2024 12:06:54 01/19/20 24 01/20/2024 BASIC METAB OLIC PANEL (8) creatinine 0.74 mg/dL 0.57-1 .00 normal Not Available [facility] ([facility]) [address] [place], [address], 01/20/2024 12:06:54 01/19/20 24 01/20/2024 BASIC METAB OLIC PANEL (8) eGFR 83 mL/mi n/1.7 3 >59 normal Not Available [facility] ([facility]) [address], [place], [address], 01/20/2024 12:06:54 01/19/20 24 01/20/2024 BASIC METAB OLIC PANEL (8) BUN/creatini ne ratio 14 12-28 normal Not Available [facility] ([facility]) [address] [place], [address], 01/20/2024 12:06:54 01/19/20 24 01/20/2024 BASIC METAB OLIC PANEL (8) sodium 142 mmol/ L 134-14 4 normal Not Available [facility] ([facility]) [address] [place], [address], 01/20/2024 12:06:54 01/19/20 24 01/20/2024 BASIC METAB OLIC PANEL (8) potassium 4.1 mmol/ L 3.5-5. 2 normal Not Available [facility] ([facility]) [address], [place], [address], 01/20/2024 12:06:54 01/19/20 24 01/20/2024 BASIC METAB OLIC PANEL (8) chloride 107 mmol/ L 96-106 above high normal Not Available [facility] ([facility]) [address] [place], [address], 01/20/2024 12:06:54 01/19/20 24 01/20/2024 BASIC METAB OLIC PANEL (8) carbon dioxide, total 21 mmol/ L 20-29 normal Not Available [facility] ([facility]) [address] [place], [address], 01/20/2024 12:06:54 01/19/20 24 01/20/2024 BASIC METAB OLIC PANEL (8) calcium 9.1 mg/dL 8.7-10 .3 normal Not Available [facility] ([facility]) [address] [place], [address], 01/20/2024 12:06:54 01/19/20 24 01/20/2024 HEPAT IC FUNCT ION PANEL (7) protein, total 6.5 g/dL 6.0-8. 5 normal Not Available [facility] ([facility]) [address] [place], [address], 01/20/2024 12:06:55 01/19/20 24 01/20/2024 HEPAT IC FUNCT ION PANEL (7) albumin 4.2 g/dL 3.8-4. 8 normal Not Available [facility] ([facility]) [address] [place], [address], 01/20/2024 12:06:55 01/19/20 24 01/20/2024 HEPAT IC FUNCT ION PANEL (7) bilirubin, total 0.3 mg/dL 0.0-1. 2 normal Not Available [facility] ([facility]) [address] [place], [address], 01/20/2024 12:06:55 01/19/20 24 01/20/2024 HEPAT IC FUNCT ION PANEL (7) bilirubin, direct 0.10 mg/dL 0.00-0 .40 normal Not Available [facility] ([facility]) [address] [place], [address], 01/20/2024 12:06:55 01/19/20 24 01/20/2024 HEPAT IC FUNCT ION PANEL (7) alkaline phosphatase 82 IU/L 44-121 normal Not Available [facility] ([facility]) [address] [place], [address], 01/20/2024 12:06:55 01/19/20 24 01/20/2024 HEPAT IC FUNCT ION PANEL (7) AST (SGOT) 18 IU/L 0-40 normal Not Available [facility] ([facility]) [address] [place], [address], 01/20/2024 12:06:55 01/19/20 24 01/20/2024 HEPAT IC FUNCT ION PANEL (7) ALT (SGPT) 13 IU/L 0-32 normal Not Available [facility] ([facility]) [address] [place], [address], 01/20/2024 12:06:55 01/19/20 24 01/20/2024 LIPID PANEL cholesterol, total 182 mg/dL 100-19 9 normal Not Available [facility] ([facility]) [address] [place], [address], 01/20/2024 12:06:55 01/19/20 24 01/20/2024 LIPID PANEL triglyceride s 230 mg/dL 0-149 above high normal Not Available [facility] ([facility]) [address] [place], [address], 01/20/2024 12:06:55 01/19/20 24 01/20/2024 LIPID PANEL HDL cholesterol 47 mg/dL >39 normal Not Available [facility] ([facility]) [address] [place], [address], 01/20/2024 12:06:55 01/19/20 24 01/20/2024 LIPID PANEL VLDL cholesterol jason 39 mg/dL 5-40 Not Available [facility] ([facility]) [address] [place], [address], 01/20/2024 12:06:55 01/19/20 24 01/20/2024 LIPID PANEL LDL chol calc ([facility]) 96 mg/dL 0-99 Not Available [facility] ([facility]) [address] [place], [address], 01/20/2024 12:06:55 01/19/20 24 01/20/2024 LIPID PANEL LDL calc comment: CLUB ATTENDANT Not Available [facility] ([facility]) [address] [place], [address], 01/20/2024 12:06:55 01/19/20 24 01/20/2024 HEMOG LOBIN A1C hemoglobin A1C 5.7 % 4.8-5. 6 above high normal Predi abete s: 5.7 - 6.4 Diabe sandra: >6.4 Glyce cassandra contr ol for adult s with diabe sandra: <7.0 Not Available [facility] ([facility]) [address], [place], [address], 01/20/2024 12:06:56 01/19/20 24 01/20/2024 VITAM IN D, 25-HY DROXY vitamin D, 25-hydroxy 58.4 NG/mL 30.0-1 00.0 Vitam in D defic [...] 1. IOM (Inst itute of Medic ine). 2009. Dieta ry refer ence deirdre es for calci um and D. Christianne pinto [place]: [facility] Press . 2. Carlo kasper [place], Issac shipley [place], Spencer off-F errar i ENGLISH, et al. Evalu ation , treat ment, and preve ntion of vitam in D defic iency : an Endoc rine Socie ty clini jason pract ice guide line. JCEM. 2010; 96(7) :1911 -30. Not Available [facility] ([facility]) [address], [place], [address], 01/20/2024 12:06:57 01/19/20 24 01/25/2024 VITAM IN B1 (THIA MINE) , BLOOD vit. B1, whole blood 102.8 nmol/ L 66.5-2 00.0 Not Available [facility] ([facility]) [address], [place], [address], 01/31/2024 12:06:11 10/17/19 25 10/17/2024 TSH+F REE T4 TSH 3.790 uIU/m L 0.450- 4.500 normal Not Available [facility] ([facility]) [address] [place], [address], 10/17/2024 16:07:45 10/17/19 25 10/17/2024 TSH+F REE T4 T4,free(dire ct) 1.16 NG/dL 0.82-1 .77 normal Not Available [facility] ([facility]) [address] [place], [address], 10/17/2024 16:07:45 10/17/19 25 10/17/2024 CBC WITH DIFFE RENTI AL/PL ATELE T WBC 5.5 x10e3 /uL 3.4-10 .8 normal Not Available [facility] ([facility]) [address] [place], [address], 10/17/2024 16:07:46 10/17/19 25 10/17/2024 CBC WITH DIFFE RENTI AL/PL ATELE T RBC 4.27 x10e6 /uL 3.77-5 .28 normal Not Available [facility] ([facility]) [address] [place], [address], 10/17/2024 16:07:46 10/17/19 25 10/17/2024 CBC WITH DIFFE RENTI AL/PL ATELE T hemoglobin 12.6 g/dL 11.1-1 5.9 normal Not Available [facility] ([facility]) [address] [place], [address], 10/17/2024 16:07:46 10/17/19 25 10/17/2024 CBC WITH DIFFE RENTI AL/PL ATELE T hematocrit 38.1 % 34.0-4 6.6 normal Not Available [facility] ([facility]) [address], [place], [address], 10/17/2024 16:07:46 10/17/19 25 10/17/2024 CBC WITH DIFFE RENTI AL/PL ATELE T MCV 89 fL 79-97 normal Not Available [facility] ([facility]) [address], [place], [address], 10/17/2024 16:07:46 10/17/19 25 10/17/2024 CBC WITH DIFFE RENTI AL/PL ATELE T MCH 29.5 pg 26.6-3 3.0 normal Not Available [facility] ([facility]) [address], [place], [address], 10/17/2024 16:07:46 10/17/19 25 10/17/2024 CBC WITH DIFFE RENTI AL/PL ATELE T MCHC 33.1 g/dL 31.5-3 5.7 normal Not Available [facility] ([facility]) [address] [place], [address], 10/17/2024 16:07:46 10/17/19 25 10/17/2024 CBC WITH DIFFE RENTI AL/PL ATELE T RDW 12.8 % 11.7-1 5.4 Not Available [facility] ([facility]) [address] [place], [address], 10/17/2024 16:07:46 10/17/19 25 10/17/2024 CBC WITH DIFFE RENTI AL/PL ATELE T platelets 218 x10e3 /uL 150-45 0 normal Not Available [facility] ([facility]) [address] [place], [address], 10/17/2024 16:07:46 10/17/19 25 10/17/2024 CBC WITH DIFFE RENTI AL/PL ATELE T neutrophils 59 % not estab. normal Not Available [facility] ([facility]) [address], [place], [address], 10/17/2024 16:07:46 10/17/19 25 10/17/2024 CBC WITH DIFFE RENTI AL/PL ATELE T lymphs 31 % not estab. normal Not Available [facility] ([facility]) [address], [place], [address], 10/17/2024 16:07:46 10/17/19 25 10/17/2024 CBC WITH DIFFE RENTI AL/PL ATELE T monocytes 6 % not estab. normal Not Available [facility] ([facility]) [address], [place], [address], 10/17/2024 16:07:46 10/17/19 25 10/17/2024 CBC WITH DIFFE RENTI AL/PL ATELE T eos 3 % not estab. normal Not Available [facility] ([facility]) [address], [place], [address], 10/17/2024 16:07:46 10/17/19 25 10/17/2024 CBC WITH DIFFE RENTI AL/PL ATELE T basos 1 % not estab. 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 0 normal Not Available [facility] ([facility]) [address], [place], [address], 10/17/2024 16:07:46 10/17/19 25 10/17/2024 CBC WITH DIFFE RENTI AL/PL ATELE T lymphs (absolute) 1.7 x10e3 /uL 0.7-3. 1 normal Not Available [facility] ([facility]) [address], [place], [address], 10/17/2024 16:07:46 10/17/19 25 10/17/2024 CBC WITH DIFFE RENTI AL/PL ATELE T monocytes(ab solute) 0.3 x10e3 /uL 0.1-0. 9 normal Not Available [facility] ([facility]) [address] [place], [address], 10/17/2024 16:07:46 10/17/19 25 10/17/2024 CBC WITH DIFFE RENTI AL/PL ATELE T eos (absolute) 0.2 x10e3 /uL 0.0-0. 4 normal Not Available [facility] ([facility]) [address], [place], [address], 10/17/2024 16:07:46 10/17/19 25 10/17/2024 CBC WITH DIFFE RENTI AL/PL ATELE T baso (absolute) 0.0 x10e3 /uL 0.0-0. 2 normal Not Available [facility] ([facility]) [address] [place], [address], 10/17/2024 16:07:46 10/17/19 25 10/17/2024 CBC WITH DIFFE RENTI AL/PL ATELE T immature granulocytes 0 % not estab. Not Available [facility] ([facility]) [address] [place], [address], 10/17/2024 16:07:46 10/17/19 25 10/17/2024 CBC WITH DIFFE RENTI AL/PL ATELE T immature grans (abs) 0.0 x10e3 /uL 0.0-0. 1 Not Available [facility] ([facility]) [address], [place], [address], 10/17/2024 16:07:46 10/17/19 25 10/17/2024 CBC WITH DIFFE RENTI AL/PL ATELE T NRBC CLUB ATTENDANT Not Available [facility] ([facility]) [address], [place], [address], 10/17/2024 16:07:46 10/17/19 25 10/17/2024 CBC WITH DIFFE RENTI AL/PL ATELE T hematology comments: CLUB ATTENDANT Not Available [facility] ([facility]) [address], [place], [address], 10/17/2024 16:07:46 10/17/19 25 10/17/2024 COMP. METAB OLIC PANEL (14) glucose 101 mg/dL 70-99 above high normal Not Available [facility] ([facility]) [address], [place], [address], 10/17/2024 16:07:47 10/17/19 25 10/17/2024 COMP. METAB OLIC PANEL (14) BUN 11 mg/dL 8-27 normal Not Available [facility] ([facility]) [address], [place], [address], 10/17/2024 16:07:47 10/17/19 25 10/17/2024 COMP. METAB OLIC PANEL (14) creatinine 0.71 mg/dL 0.57-1 .00 normal Not Available [facility] ([facility]) [address], [place], [address], 10/17/2024 16:07:47 10/17/19 25 10/17/2024 COMP. METAB OLIC PANEL (14) eGFR 87 mL/mi n/1.7 3 >59 normal Not Available [facility] ([facility]) [address] [place], [address], 10/17/2024 16:07:47 04/22/20 25 10/17/2024 COMP. METAB OLIC PANEL (14) BUN/creatini ne ratio 15 12-28 normal Not Available [facility] ([facility]) [address] [place], [address], 10/17/2024 16:07:47 10/17/19 25 10/17/2024 COMP. METAB OLIC PANEL (14) sodium 145 mmol/ L 134-14 4 above high normal Not Available [facility] ([facility]) [address] [place], [address], 10/17/2024 16:07:47 10/17/19 25 10/17/2024 COMP. METAB OLIC PANEL (14) potassium 4.8 mmol/ L 3.5-5. 2 normal Not Available [facility] ([facility]) [address] [place], [address], 10/17/2024 16:07:47 10/17/19 25 10/17/2024 COMP. METAB OLIC PANEL (14) chloride 108 mmol/ L 96-106 above high normal Not Available [facility] ([facility]) [address] [place], [address], 10/17/2024 16:07:47 10/17/19 25 10/17/2024 COMP. METAB OLIC PANEL (14) carbon dioxide, total 20 mmol/ L 20-29 normal Not Available [facility] ([facility]) [address] [place], [address], 10/17/2024 16:07:47 10/17/19 25 10/17/2024 COMP. METAB OLIC PANEL (14) calcium 9.7 mg/dL 8.7-10 .3 normal Not Available [facility] ([facility]) [address] [place], [address], 10/17/2024 16:07:47 10/17/19 25 10/17/2024 COMP. METAB OLIC PANEL (14) protein, total 6.5 g/dL 6.0-8. 5 normal Not Available [facility] ([facility]) [address] [place], [address], 10/17/2024 16:07:47 10/17/19 25 10/17/2024 COMP. METAB OLIC PANEL (14) albumin 4.3 g/dL 3.8-4. 8 normal Not Available [facility] ([facility]) [address] [place], [address], 10/17/2024 16:07:47 10/17/19 25 10/17/2024 COMP. METAB OLIC PANEL (14) globulin, total 2.2 g/dL 1.5-4. 5 Not Available [facility] ([facility]) [address] [place], [address], 10/17/2024 16:07:47 10/17/19 25 10/17/2024 COMP. METAB OLIC PANEL (14) bilirubin, total 0.2 mg/dL 0.0-1. 2 normal Not Available [facility] ([facility]) [address] [place], [address], 10/17/2024 16:07:47 10/17/19 25 10/17/2024 COMP. METAB OLIC PANEL (14) alkaline phosphatase 96 IU/L 44-121 normal Not Available [facility] ([facility]) [address] [place], [address], 10/17/2024 16:07:47 10/17/19 25 10/17/2024 COMP. METAB OLIC PANEL (14) AST (SGOT) 19 IU/L 0-40 normal Not Available [facility] ([facility]) [address] [place], [address], 10/17/2024 16:07:47 10/17/19 25 10/17/2024 COMP. METAB OLIC PANEL (14) ALT (SGPT) 12 IU/L 0-32 normal Not Available [facility] ([facility]) [address] [place], [address], 10/17/2024 16:07:47 10/17/19 25 10/17/2024 HEMOG LOBIN A1C hemoglobin A1C 5.6 % 4.8-5. 6 normal Predi abete s: 5.7 - 6.4 Diabe sandra: >6.4 Glyce cassandra contr ol for adult s with diabe sandra: <7.0 Not Available [facility] ([facility]) [address] [place], [address], 10/17/2024 16:07:47 11/28/19 25 11/28/2024 LIPID PANEL cholesterol, total 188 mg/dL 100-19 9 normal Not Available [facility] ([facility]) [address] [place], [address], 11/28/2024 08:07:15 11/28/19 25 11/28/2024 LIPID PANEL triglyceride s 221 mg/dL 0-149 above high normal Not Available [facility] ([facility]) [address] [place], [address], 11/28/2024 08:07:15 11/28/19 25 11/28/2024 LIPID PANEL HDL cholesterol 46 mg/dL >39 normal Not Available [facility] ([facility]) [address] [place], [address], 11/28/2024 08:07:15 11/28/19 25 11/28/2024 LIPID PANEL VLDL cholesterol jason 38 mg/dL 5-40 Not Available [facility] ([facility]) [address] [place], [address], 11/28/2024 08:07:15 11/28/19 25 11/28/2024 LIPID PANEL LDL chol calc ([facility]) 104 mg/dL 0-99 above high normal Not Available [facility] ([facility]) [address] [facility] [place], [address], 11/28/2024 08:07:15 11/28/1911/28/2024 LIPID PANEL LDL calc comment: CLUB ATTENDANT Not Available [facility] ([facility]) [address] [place], [address], 11/28/2024 08:07:15 03/18/2003/19/2025 FE+TI BC+FE R iron bind.cap.(TI BC) 363 ug/dL 250-45 0 normal Not Available [facility] ([facility]) [address] [place], [address], 03/20/2025 06:08:33 03/18/20 25 03/19/2025 FE+TI BC+FE R UIBC 276 ug/dL 118-36 9 normal Not Available [facility] ([facility]) [address] [place], [address], 03/20/2025 06:08:33 03/18/20 25 03/19/2025 FE+TI BC+FE R iron 87 ug/dL 27-139 normal Not Available [facility] ([facility]) [address] [place], [address], 03/20/2025 06:08:33 03/18/20 25 03/19/2025 FE+TI BC+FE R iron saturation 24 % 15-55 normal Not Available [facility] ([facility]) [address] [place], [address], 03/20/2025 06:08:33 03/18/20 25 03/19/2025 FE+TI BC+FE R ferritin 59 NG/mL 15-150 normal Not Available [facility] ([facility]) [address] [place], [address], 03/20/2025 06:08:33 03/18/20 25 03/19/2025 TSH+F REE T4 TSH 5.240 uIU/m L 0.450- 4.500 above high normal Not Available [facility] ([facility]) [address] [place], [address], 03/20/2025 06:08:34 03/18/2003/19/2025 TSH+F REE T4 T4,free(dire ct) 1.28 NG/dL 0.82-1 .77 normal Not Available [facility] ([facility]) [address] [place], [address], 03/20/2025 06:08:34 03/18/2003/19/2025 CBC WITH DIFFE RENTI AL/PL ATELE T WBC 6.8 x10e3 /uL 3.4-10 .8 normal Not Available [facility] ([facility]) [address], [place], [address], 03/20/2025 06:08:34 03/18/2003/19/2025 CBC WITH DIFFE RENTI AL/PL ATELE T RBC 4.49 x10e6 /uL 3.77-5 .28 normal Not Available [facility] ([facility]) [address], [place], [address], 03/20/2025 06:08:34 03/18/2003/19/2025 CBC WITH DIFFE RENTI AL/PL ATELE T hemoglobin 13.4 g/dL 11.1-1 5.9 normal Not Available [facility] ([facility]) [address] [place], [address], 03/20/2025 06:08:34 03/18/2003/19/2025 CBC WITH DIFFE RENTI AL/PL ATELE T hematocrit 40.6 % 34.0-4 6.6 normal Not Available [facility] ([facility]) [address] [place], [address], 03/20/2025 06:08:34 03/18/2003/19/2025 CBC WITH DIFFE RENTI AL/PL ATELE T MCV 90 fL 79-97 normal Not Available [facility] ([facility]) [address] [place], [address], 03/20/2025 06:08:34 03/18/20 25 03/19/2025 CBC WITH DIFFE RENTI AL/PL ATELE T MCH 29.8 pg 26.6-3 3.0 normal Not Available [facility] ([facility]) [address], [place], [address], 03/20/2025 06:08:34 03/18/20 25 03/19/2025 CBC WITH DIFFE RENTI AL/PL ATELE T MCHC 33.0 g/dL 31.5-3 5.7 normal Not Available [facility] ([facility]) [address] [place], [address], 03/20/2025 06:08:34 03/18/20 25 03/19/2025 CBC WITH DIFFE RENTI AL/PL ATELE T RDW 13.3 % 11.7-1 5.4 Not Available [facility] ([facility]) [address] [place], [address], 03/20/2025 06:08:34 03/18/20 25 03/19/2025 CBC WITH DIFFE RENTI AL/PL ATELE T platelets 215 x10e3 /uL 150-45 0 normal Not Available [facility] ([facility]) [address] [place], [address], 03/20/2025 06:08:34 03/18/20 25 03/19/2025 CBC WITH DIFFE RENTI AL/PL ATELE T neutrophils 64 % not estab. normal Not Available [facility] ([facility]) [address] [place], [address], 03/20/2025 06:08:34 03/18/20 25 03/19/2025 CBC WITH DIFFE RENTI AL/PL ATELE T lymphs 27 % not estab. normal Not Available [facility] ([facility]) [address], [place], [address], 03/20/2025 06:08:34 03/18/20 25 03/19/2025 CBC WITH DIFFE RENTI AL/PL ATELE T monocytes 6 % not estab. normal Not Available [facility] ([facility]) [address], [place], [address], 03/20/2025 06:08:34 03/18/20 25 03/19/2025 CBC WITH DIFFE RENTI AL/PL ATELE T eos 2 % not estab. normal Not Available [facility] ([facility]) [address], [place], [address], 03/20/2025 06:08:34 03/18/20 25 03/19/2025 CBC WITH DIFFE RENTI AL/PL ATELE T basos 1 % not estab. normal Not Available [facility] ([facility]) [address] [place], [address], 03/20/2025 06:08:34 03/18/20 25 03/19/2025 CBC WITH DIFFE RENTI AL/PL ATELE T immature cells CLUB ATTENDANT Not Available [facility] ([facility]) [address] [place], [address], 03/20/2025 06:08:34 03/18/20 25 03/19/2025 CBC WITH DIFFE RENTI AL/PL ATELE T neutrophils (absolute) 4.4 x10e3 /uL 1.4-7. 0 normal Not Available [facility] ([facility]) [address] [place], [address], 03/20/2025 06:08:34 03/18/20 25 03/19/2025 CBC WITH DIFFE RENTI AL/PL ATELE T lymphs (absolute) 1.9 x10e3 /uL 0.7-3. 1 normal Not Available [facility] ([facility]) [address], [place], [address], 03/20/2025 06:08:34 03/18/20 25 03/19/2025 CBC WITH DIFFE RENTI AL/PL ATELE T monocytes(ab solute) 0.4 x10e3 /uL 0.1-0. 9 normal Not Available [facility] ([facility]) [address], [place], [address], 03/20/2025 06:08:34 03/18/20 25 03/19/2025 CBC WITH DIFFE RENTI AL/PL ATELE T eos (absolute) 0.1 x10e3 /uL 0.0-0. 4 normal Not Available [facility] ([facility]) [address], [place], [address], 03/20/2025 06:08:34 03/18/20 25 03/19/2025 CBC WITH DIFFE RENTI AL/PL ATELE T baso (absolute) 0.1 x10e3 /uL 0.0-0. 2 normal Not Available [facility] ([facility]) [address], [place], [address], 03/20/2025 06:08:34 03/18/20 25 03/19/2025 CBC WITH DIFFE RENTI AL/PL ATELE T immature granulocytes 0 % not estab. Not Available [facility] ([facility]) [address] [place], [address], 03/20/2025 06:08:34 03/18/20 25 03/19/2025 CBC WITH DIFFE RENTI AL/PL ATELE T immature grans (abs) 0.0 x10e3 /uL 0.0-0. 1 Not Available [facility] ([facility]) [address], [place], [address], 03/20/2025 06:08:34 03/18/20 25 03/19/2025 CBC WITH DIFFE RENTI AL/PL ATELE T NRBC CLUB ATTENDANT Not Available [facility] ([facility]) [address], [place], [address], 03/20/2025 06:08:34 03/18/20 25 03/19/2025 CBC WITH DIFFE RENTI AL/PL ATELE T hematology comments: CLUB ATTENDANT Not Available [facility] ([facility]) [address], [place], [address], 03/20/2025 06:08:34 03/18/20 25 03/19/2025 COMP. METAB OLIC PANEL (14) glucose 91 mg/dL 70-99 normal Not Available [facility] ([facility]) [address], [place], [address], 03/20/2025 06:08:35 03/18/20 25 03/19/2025 COMP. METAB OLIC PANEL (14) BUN 13 mg/dL 8-27 normal Not Available [facility] ([facility]) [address], [place], [address], 03/20/2025 06:08:35 03/18/20 25 03/19/2025 COMP. METAB OLIC PANEL (14) creatinine 0.75 mg/dL 0.57-1 .00 normal Not Available [facility] ([facility]) [address] [place], [address], 03/20/2025 06:08:35 03/18/20 25 03/19/2025 COMP. METAB OLIC PANEL (14) eGFR 81 mL/mi n/1.7 3 >59 normal Not Available [facility] ([facility]) [address] [place], [address], 03/20/2025 06:08:35 03/18/20 25 03/19/2025 COMP. METAB OLIC PANEL (14) BUN/creatini ne ratio 17 12-28 normal Not Available [facility] ([facility]) [address], [place], [address], 03/20/2025 06:08:35 03/18/20 25 03/19/2025 COMP. METAB OLIC PANEL (14) sodium 140 mmol/ L 134-14 4 normal Not Available [facility] ([facility]) [address] [place], [address], 03/20/2025 06:08:35 03/18/20 25 03/19/2025 COMP. METAB OLIC PANEL (14) potassium 4.6 mmol/ L 3.5-5. 2 normal Not Available [facility] ([facility]) [address] [place], [address], 03/20/2025 06:08:35 03/18/20 25 03/19/2025 COMP. METAB OLIC PANEL (14) chloride 103 mmol/ L 96-106 normal Not Available [facility] ([facility]) [address] [place], [address], 03/20/2025 06:08:35 03/18/20 25 03/19/2025 COMP. METAB OLIC PANEL (14) carbon dioxide, total 22 mmol/ L 20-29 normal Not Available [facility] ([facility]) [address] [place], [address], 03/20/2025 06:08:35 03/18/20 25 03/19/2025 COMP. METAB OLIC PANEL (14) calcium 9.4 mg/dL 8.7-10 .3 normal Not Available [facility] ([facility]) [address] [place], [address], 03/20/2025 06:08:35 03/18/20 25 03/19/2025 COMP. METAB OLIC PANEL (14) protein, total 6.8 g/dL 6.0-8. 5 normal Not Available [facility] ([facility]) [address] [place], [address], 03/20/2025 06:08:35 03/18/20 25 03/19/2025 COMP. METAB OLIC PANEL (14) albumin 4.6 g/dL 3.8-4. 8 normal Not Available [facility] ([facility]) [address] [place], [address], 03/20/2025 06:08:35 03/18/20 25 03/19/2025 COMP. METAB OLIC PANEL (14) globulin, total 2.2 g/dL 1.5-4. 5 Not Available [facility] ([facility]) [address] [place], [address], 03/20/2025 06:08:35 03/18/20 25 03/19/2025 COMP. METAB OLIC PANEL (14) bilirubin, total 0.4 mg/dL 0.0-1. 2 normal Not Available [facility] ([facility]) [address] [place], [address], 03/20/2025 06:08:35 03/18/20 25 03/19/2025 COMP. METAB OLIC PANEL (14) alkaline phosphatase 103 IU/L 49-135 normal Ple ase note refer ence nito odell e Not Available [facility] ([facility]) [address] [place], [address], 03/20/2025 06:08:35 03/18/20 25 03/19/2025 COMP. METAB OLIC PANEL (14) AST (SGOT) 17 IU/L 0-40 normal Not Available [facility] ([facility]) [address] [place], [address], 03/20/2025 06:08:35 03/18/20 25 03/19/2025 COMP. METAB OLIC PANEL (14) ALT (SGPT) 10 IU/L 0-32 normal Not Available [facility] ([facility]) [address] [place], [address], 03/20/2025 06:08:35 03/18/20 25 03/19/2025 UA/M W/RFL X CULTU RE, ROUTI NE specific gravity 1.020 1.005- 1.030 normal Not Available [facility] ([facility]) [address], [place], [address], 03/20/2025 06:08:36 03/18/2003/19/2025 UA/M W/RFL X CULTUlices RELOLI NE pH 7.5 5.0-7. 5 normal Not Available [facility] ([facility]) [address], [place], [address], 03/20/2025 06:08:36 03/18/2003/19/2025 UA/M W/RFL X CULTU RE ROUTI NE urine-color Yellow yellow Not Available [facility] ([facility]) [address], [place], [address], 03/20/2025 06:08:36 03/18/20 25 03/19/2025 UA/M W/RFL X CULTUlices RELOLI NE appearance Cloudy clear abnormal Not Available [facility] ([facility]) [address], [place], [address], 03/20/2025 06:08:36 03/18/2003/19/2025 UA/M W/RFL X LUPE RELOLI NE WBC esterase Trace negati ve abnormal Not Available [facility] ([facility]) [address] [place], [address], 03/20/2025 06:08:36 03/18/2003/19/2025 UA/M W/RFL X LUPE RELOLI NE protein Trace negati ve/tra ce Not Available [facility] ([facility]) [address] [place], [address], 03/20/2025 06:08:36 03/18/20 25 03/19/2025 UA/M W/RFL X CULTU RE, ROUTI NE glucose Negati ve negati ve Not Available [facility] ([facility]) [address] [place], [address], 03/20/2025 06:08:36 03/18/2003/19/2025 UA/M W/RFL X CULTU RE, ROUTI NE ketones Negati ve negati ve Not Available [facility] ([facility]) [address] [place], [address], 03/20/2025 06:08:36 03/18/2003/19/2025 UA/M W/RFL X CULTU RE, ROUTI NE occult blood Negati ve negati ve Not Available [facility] ([facility]) [address] [place], [address], 03/20/2025 06:08:36 03/18/2003/19/2025 UA/M W/RFL X CULTU RE, ROUTI NE bilirubin Negati ve negati ve Not Available [facility] ([facility]) [address] [place], [address], 03/20/2025 06:08:36 03/18/2003/19/2025 UA/M W/RFL X CULTU RE, ROUTI NE urobilinogen ,semi-qn 0.2 mg/dL 0.2-1. 0 normal Not Available [facility] ([facility]) [address] [place], [address], 03/20/2025 06:08:36 03/18/2003/19/2025 UA/M W/RFL X CULTU RE, ROUTI NE nitrite, urine Negati ve negati ve Not Available [facility] ([facility]) [address] [place], [address], 03/20/2025 06:08:36 03/18/20 25 03/19/2025 UA/M W/RFL X CULTU RE, ROUTI NE microscopic examination See below: Micro scopi c was indic ated and was perfo rmed. Not Available [facility] ([facility]) [address], [place], [address], 03/20/2025 06:08:36 03/18/20 25 03/19/2025 UA/M W/RFL X CULTU RE, ROUTI NE WBC None seen /hpf 0 - 5 Not Available [facility] ([facility]) [address], [place], [address], 03/20/2025 06:08:36 03/18/20 25 03/19/2025 UA/M W/RFL X CULTU RE, ROUTI NE RBC 0-2 /hpf 0 - 2 Not Available [facility] ([facility]) [address], [place], [address], 03/20/2025 06:08:36 03/18/20 25 03/19/2025 UA/M W/RFL X CULTU RE, ROUTI NE epithelial cells (non renal) None seen /hpf 0 - 10 Not Available [facility] ([facility]) [address], [place], [address], 03/20/2025 06:08:36 03/18/20 25 03/19/2025 UA/M W/RFL X CULTU RE, ROUTI NE epithelial cells (renal) CLUB ATTENDANT Not Available [facility] ([facility]) [address], [place], [address], 03/20/2025 06:08:36 03/18/20 25 03/19/2025 UA/M W/RFL X CULTU RE, ROUTI NE casts None seen /lpf none seen Not Available [facility] ([facility]) [address] [place], [address], 03/20/2025 06:08:36 03/18/20 25 03/19/2025 UA/M W/RFL X CULTU RE, ROUTI NE cast type CLUB ATTENDANT Not Available [facility] ([facility]) [address], [place], [address], 03/20/2025 06:08:36 03/18/20 25 03/19/2025 UA/M W/RFL X CULTU RE, ROUTI NE crystals CLUB ATTENDANT Not Available [facility] ([facility]) [address], [place], [address], 03/20/2025 06:08:36 03/18/20 25 03/19/2025 UA/M W/RFL X CULTU RE, ROUTI NE crystal type CLUB ATTENDANT Not Available [facility] ([facility]) [address], [place], [address], 03/20/2025 06:08:36 03/18/20 25 03/19/2025 UA/M W/RFL X CULTU RE, ROUTI NE mucus threads CLUB ATTENDANT Not Available [facility] ([facility]) [address], [place], [address], 03/20/2025 06:08:36 03/18/20 25 03/19/2025 UA/M W/RFL X CULTU RE, ROUTI NE bacteria None seen none seen/f ew Not Available [facility] ([facility]) [address], [place], [address], 03/20/2025 06:08:36 03/18/20 25 03/19/2025 UA/M W/RFL X CULTU RE, ROUTI NE yeast CLUB ATTENDANT Not Available [facility] ([facility]) [address], [place], [address], 03/20/2025 06:08:36 03/18/20 25 03/19/2025 UA/M W/RFL X CULTU RE, ROUTI NE trichomonas CLUB ATTENDANT Not Available [facility] ([facility]) [address], [place], [address], 03/20/2025 06:08:36 03/18/20 25 03/19/2025 UA/M W/RFL X CULTU RE, LOLI NE comment CLUB ATTENDANT Not Available [facility] ([facility]) [address], [place], [address], 03/20/2025 06:08:36 03/18/20 25 03/19/2025 UA/M W/RFL X CULTU RE, LOLI NE microscopic examination CLUB ATTENDANT Not Available [facility] ([facility]) [address], [place], [address], 03/20/2025 06:08:36 03/18/20 25 03/19/2025 UA/M W/RFL X CULTU RE, LOLI NE urinalysis reflex Commen t This speci men has refle xed to a Urine Cultu re. Not Available [facility] ([facility]) [address], [place], [address], 03/20/2025 06:08:36 03/18/20 25 03/20/2025 UA/M W/RFL X CULTU RE, LOLI NE urine culture, routine Final report Not Available [facility] ([facility]) [address], [place], [address], 03/20/2025 06:08:36 03/18/20 25 03/20/2025 UA/M W/RFL X CULTU RELOLI NE result 1 No growth Not Available [facility] ([facility]) [address], [place], [address], 03/20/2025 06:08:36 03/18/20 25 03/19/2025 VITAM IN B12 AND FOLAT E vitamin B12 >2000 pg/mL 232-12 45 above high normal Not Available [facility] ([facility]) [address], [place], [address], 03/20/2025 06:08:36 09/22/03/19/2025 VITAM IN B12 AND FOLAT E folate (folic acid), serum 7.3 NG/mL >3.0 normal A serum folat e rocio ntrat ion of less than 3.1 ng/mL is consi dered to repre sent clini jason defic iency . Not Available [facility] ([facility]) [address] [place], [address], 03/20/2025 06:08:36 03/18/2003/19/2025 ESR-W ES+CR P sedimentatio n rate-westerg rogelio 11 mm/HR 0-40 normal Not Available [facility] ([facility]) [address] [place], [address], 03/20/2025 06:08:37 03/18/2003/19/2025 ESR-W ES+CR P C-reactive protein, quant 2 mg/L 0-10 normal Not Available [facility] ([facility]) [address] [place], [address], 03/20/2025 06:08:37 03/18/2003/19/2025 HEMOG LOBIN A1C hemoglobin A1C 5.4 % 4.8-5. 6 normal Predi abete s: 5.7 - 6.4 Diabe sandra: >6.4 Glyce cassandra contr ol for adult s with diabe sandra: <7.0 Not Available [facility] ([facility]) [address] [place], [address], 03/20/2025 06:08:37 03/18/2003/19/2025 VITAM IN D, 25-HY DROXY vitamin D, 25-hydroxy 49.1 NG/mL 30.0-1 00.0 Vitam in D defic iency has been defin ed by the Insti tute of Medic ine and an Endoc rine Socie ty pract ice guide line as a level of serum 25-OH vitam in D less than 20 ng/mL (1,2) . The Endoc rine Socie ty went on to [facility] er defin e vitam in D insuf ficie ncy as a level betwe en 21 and 29 ng/mL (2). 1. IOM (Inst itute of Medic ine). 2010. Dieta ry refer ence intchaparro es for calci um and D. Christianne pinto [place]: The [facility] . 2. Carlo k [place], Binkl ey [place], Bisch off-F errar i ENGLISH, et al. Evalu ation , treat ment, and preve ntion of vitam in D defic iency : an Endoc rine Socie ty clini jason pract ice guide line. JCEM. 2010; 96(7) :1911 -30. Not Available [facility] ([facility]) [address], [place], [address], 03/20/2025 06:08:38 03/18/20 25 03/19/2025 LYME DISEA SE SEROL OGY W/REF TANIA lyme total antibody sreedhar Negati ve negati ve Lyme antib odies not detec marcy. Refle x testi ng is not indic ated. No labor atory evide nce of infec tion with B. burgd orfer i (Lyme disea se). Negat fe resul ts may occur in patie nts recen tly infec mracy (less than or equal to 14 days) with B. burgd orfer i. If recen t infec tion is suspe cted, repea t testi ng on a new sampl e colle cted in 7 to 14 days is recom sarah d. Not Available [facility] ([facility]) [address], [place], [address], 03/20/2025 06:08:38 03/18/2003/19/2025 PHOSP HORUS phosphorus 3.6 mg/dL 3.0-4. 3 normal Not Available [facility] ([facility]) [address], [place], [address], 03/20/2025 06:08:39 01/24/20 24 01/24/2024 , bladd er US Bladde r Reason : 78-yea r-old female with sensat ion of incomp lete bladde r emptyi ng: COMPAR CATHY: None. FINDIN GS: Bladde r morpho logy appear s normal . No stone, mass, wall thicke stephanie or debris . Bilate ral ureter al jets are identi fied on color Dopple r imagin g sugges ting ureter ovesic ular juncti on patenc y. Prevoi d volume : 74 cc Postvo id volume : 1 cc IMPRES JV: Normal urinar y bladde r. Postvo id residu al of 1 cc. Thank you for allowi ng me to partic ipate in the care of this patien t. WSN: [id number] Orderi ng Physic mani: Pennie Wong Dictat ed By: Kev Fonseca MD Dictat ed Date/T zaki: 6:12 pm Review ed By: Kev Fonseca MD Signed By: Kev Fonseca MD Signed Date/T zaki: 6:12 pm Transc ribed By: KENIA Transc ribed Date/T zaki: 6:10 pm Patien t Class: Outpat ient [email or web address] [facility] (Outpt Imaging) [address] [place], [address], 01/26/2024 08:53:57 01/24/20 24 01/24/2024 US, bladd er No observ ation record ed. [facility] (Ultrasound) [address] [place], [address], 01/25/2024 12:33:20 03/18/20 25 03/18/2025 elect rocar diogr am No observ ation record ed. [email or web address] In-Office Order Internal Use Only DO Not Attach Compendium DO Not Attach Compendium, Do Not Delete/merge, [id number] 03/18/2025 12:27:30 03/18/20 25 elect rocar diogr am No observ ation record ed. codie In-Office Order Internal Use Only DO Not Attach Compendium DO Not Attach Compendium, Do Not Delete/merge, [id number] 03/18/2025 12:16:43 03/19/2003/19/2025 XR, chest , 2 view No observ ation record ed. [email or web address] [facility] [address] , [place], [address], 03/25/2025 11:59:49 03/19/2003/18/2025 XR, chest , 2 [...] IMPRES JV: No acute abnorm ality. WSN: [id number] Orderi ng Physic amni: Pennie Wong Dictat ed By: Ryan Emery MD, V Dictat ed Date/T zaki: 12:05 p Review ed By: Bradford ngo MD, Ryan Kolb Signed By: Ryan Emery MD, V Signed Date/T zaki: 12:05 pm Transc ribed By: KENIA Transc ribed Date/T zaki: 11:40 am Patien t Class: Outpat ient [email or web address] [facility] (Outpt Imaging) [address], [place], [address], 03/22/2025 13:15:00 03/20/20 25 03/20/2025 XR, abdom en, compl ete No observ ation [facility] ed. [facility] [address] [place], [address], 03/22/2025 14:33:31 03/20/2021 0303/18/2025 XR, abdom en [employer] [...] Mild coloni c stool retent ion. WSN: [id number] Orderi ng Physic mani: Pennie Wong Dictat ed By: Manuel Carvalho MD Dictat ed Date/T zaki: 5:16 pm Review ed By: Manuel Carvalho MD Signed By: Manuel Carvalho MD Signed Date/T zaki: 5:16 pm Transc ribed By: KENIA Transc ribed Date/T zaki: 5:15 pm Patien t Class: Outpat ient [facility] (Outpt Imaging) [address] [place], [address], 03/22/2025 14:55:13 Result Notes Documentation Provider Name and Address Organization Details Recorded Time Xr, Chest, 2 View : Chest 2 Views Frontal and Lat Reason: fatigue COMPARISON: Multiple prior most recent 08/21/2020. FINDINGS: LINES AND TUBES: None. LUNGS AND PLEURA: Clear lungs. Normal pulmonary vascularity. No evidence of pleural effusion. No pneumothorax. HEART, MEDIASTINUM AND LEONIDAS: Heart is normal in size. Aorta is mildly calcified. BONES AND SOFT TISSUES: No acute abnormality. Mild scoliosis of the lumbar spine. Multilevel degenerative changes of the visualized spine IMPRESSION: No acute abnormality. WSN: [id number] Ordering Physician: Frederic Wong Dictated By: Ryan Rodríguez MD, V Dictated Date/Time: 03/19/25 12:05 p Reviewed By: Ryan Rodríguez MD, V Signed By: Ryan Rodríguez MD, V Signed Date/Time: 03/19/25 12:05 pm Transcribed By: KENIA Transcribed Date/Time: 03/19/25 11:40 am [facility]/22/2025 13:15:00 Xr, Abdomen : Abdomen Comp Inc Decub and/or Erect 2 view INDICATION/CLINICAL QUESTION: Reason: constipation COMPARISON: None FINDINGS: Mild stool retention but otherwise normal bowel gas pattern. No evidence of obstruction. No evidence of pneumoperitoneum. Degenerative changes of the spine. Partially visualized right hip arthroplasty. No acute bone findings. IMPRESSION: Mild colonic stool retention. WSN: [id number] Ordering Physician: Frederic Wong Dictated By: Nayan Carvalho MD Dictated Date/Time: 03/20/25 5:16 pm Reviewed By: Nayan Carvalho MD Signed By: Nayan Carvalho MD Signed Date/Time: 03/20/25 5:16 pm Transcribed By: KENIA Transcribed Date/Time: 03/20/25 5:15 pm Patient Class: Outpatient YASMIN Maharaj, [facility] 03/22/2025 14:55:13 Problems Name Problem SNOMED Code Status Onset Date Resolution Date Notes Provider Name and Address Organization Details Recorded Time Anxiety 96280797 Active Not Available [facility] 2 13:24:13 Fatigue 69661547 Completed 10/05/2018 [facility] 9 10:14:18 Advance directiv e discusse d with patient 533498965 Completed 05/14/2022 Abdias Bowman PA-C [address], [place], [address] , [facility] 2 15:21:49 Menopaus e present 260714297 Completed 05/14/2022 Abdias Bowman PA-C [address], [place], [address] , [facility] 2 15:24:09 Lesion of skin of face 98275029523 6 Completed 05/14/2022 Abdias Bowman PA-C [address], [place], [address] , [facility] 2 15:23:55 Dyspnea on exertion 40325421 Completed 05/14/2022 Abdias Bowman PA-C [address], [place], [address] , [facility] 2 15:25:22 Precordi al pain 74049955 Completed 05/14/2022 Abdias Bowman PA-C [address], [place], [address] , [facility] 2 15:25:59 Osteopor osis 02439224 Completed 200701/15/2014 RESOLVED DATE: 11/14/19 08; RECORDED 11/14/19 08 9:29AM BY TOMER NORWOOD MD, OFFICE VISIT [facility] 6 16:33:00 Osteopor osis 55280107 Completed 200702/04/2014 RESOLVED DATE: 11/14/19 08; RECORDED 11/14/19 08 9:29AM BY TOMER NORWOOD MD, OFFICE VISIT [facility] 6 16:33:00 Administ ration of bacteria l and viral vaccine Completed 200801/15/2014 RECORDED 11/30/19 09 1:33PM BY YASMIN CAMACHO, OFFICE VISIT [facility] 6 16:33:00 Administ ration of bacteria l and viral vaccine Completed 200802/04/2014 RECORDED 11/30/19 09 1:33PM BY YASMIN CAMACHO, OFFICE VISIT [facility] 6 16:33:00 Hyperlip idemia 94415417 Completed 201001/15/2014 RECORDED 12/12/19 11 1:55PM BY RUI PHILIPPE MA, SHANI ON/ADDEN DUM Abdias Bowman PA-C [address], [place], [address] , [facility] 9 13:22:46 Divertic ular disease 228039655 Active 2010 Not Available [facility] 2 13:24:13 Hyperlip idemia 41930067 Active 2010 Not Available [facility] 2 13:24:13 Gastroes ophageal reflux disease 777400567 Active 2011 Not Available [facility] 2 13:24:12 Administ ration of viral vaccine Completed 201101/15/2014 DATE: 11/23/19 12; RECORDED 06/23/20 12 10:31AM BY SHANI YUNG ON/ADDEN DUM YASMIN Butler, [facility] 6 16:33:00 Administ ration of viral vaccine Completed 201102/04/2014 DATE: 11/23/19 12; RECORDED 06/23/20 12 10:31AM BY SHANI YUNG ON/ADDEN DUM YASMIN Butler, [facility] 6 16:33:00 Actinic keratosi s 195854452 Completed 201101/15/2014 RECORDED 06/23/20 12 10:31AM BY SHANI YUNG ON/ADDEN DUM YASMIN Butler, [facility] 6 16:33:00 Screenin g for malignan t neoplasm of breast Completed 201101/15/2014 RECORDED 06/23/20 12 10:31AM BY SHANI YUNG ON/ADDEN DUM YASMIN Butler, [facility] 6 16:33:00 Screenin g for malignan t neoplasm of cervix Completed 201101/15/2014 RECORDED 06/23/20 12 10:31AM BY SHANI YUNG ON/ADDEN DUM Rui Cassi-YASMIN Gray, [facility] 6 16:33:00 Conjunct ivitis 7696114 Completed 201101/15/2014 RECORDED 06/23/20 12 10:31AM BY SHANI YUNG ON/ADDEN DUM Rui Cassi-YASMIN Gray, [facility] 6 16:33:00 Constipa tion 50598546 Completed 201101/15/2014 RECORDED 06/23/20 12 10:31AM BY SHANI YUNG ON/ADDEN DUM Frederic Wong MD [address], [place], [address] , [facility] 4 18:49:05 Noninfec tious gastroen teritis 26860697 Completed 201101/15/2014 IMPRESSI ON: RESOLVED DIARRHEA AND VOMITING , BACK TO WORK NOTE FOR PT, LOOKS WELL HYDRATED , MILD DIZZINES S FROM POOR PO INTAKE, TAKE SOME FOOD; RECORDED 06/23/20 12 10:31AM BY SHANI YUNG ON/ADDEN DUM Rui YASMIN Briones, [facility] 6 16:33:00 Screenin g for malignan t neoplasm of colon Completed 201101/15/2014 RECORDED 06/23/20 12 10:31AM BY SHANI YUNG ON/ADDEN DUM Rui YASMIN Briones, [facility] 6 16:33:00 Pain in thoracic spine 849196900 Completed 201101/15/2014 RECORDED 06/23/20 12 10:31AM BY SHANI YUNG ON/ADDEN DUM Rui CassiYASMIN Cisse, [facility] 6 16:33:00 Actinic keratosi s 022115528 Completed 201102/04/2014 RECORDED 06/23/20 12 10:31AM BY BRIANNE YUNGATI ON/ADDEN DUM Rui Cassi-YASMIN Gray, [facility] 6 16:33:00 Screenin g for malignan t neoplasm of breast Completed 201102/04/2014 RECORDED 06/23/20 12 10:31AM BY BRIANNE YUNGATI ON/ADDEN DUM Rui Cassi-YASMIN Gray, [facility] 6 16:33:00 Screenin g for malignan t neoplasm of cervix Completed 201102/04/2014 RECORDED 06/23/20 12 10:31AM BY SHANI YUNG ON/ADDEN DUM Rui Cassi-YASMIN Gray, [facility] 6 16:33:00 Conjunct ivitis 8174199 Completed 201102/04/2014 RECORDED 06/23/20 12 10:31AM BY SHANI YUNG ON/ADDEN DUM Rui YASMIN Briones, [facility] 6 16:33:00 Constipa tion 21260400 Completed 201102/04/2014 RECORDED 06/23/20 12 10:31AM BY SHANI YUNG ON/ADDEN DUM Frederic Wong MD [address], [place], [address] , [facility] 4 18:49:05 Noninfec tious gastroen teritis 63644649 Completed 201102/04/2014 IMPRESSI ON: RESOLVED DIARRHEA AND VOMITING , BACK TO WORK NOTE FOR PT, LOOKS WELL HYDRATED , MILD DIZZINES S FROM POOR PO INTAKE, TAKE SOME FOOD; RECORDED 06/23/20 12 10:31AM BY SHANI YUNG ON/ADDEN DUM Rui YASMIN Briones, [facility] 6 16:33:00 Screenin g for malignan t neoplasm of colon Completed 201102/04/2014 RECORDED 06/23/20 12 10:31AM BY CHATO AMRTINS I, ANNOTATI ON/ADDEN DUM YASMIN Butler, [facility] 6 16:33:00 Pain in thoracic spine 119532474 Completed 201102/04/2014 RECORDED 06/23/20 12 10:31AM BY CHATO MARTINS I, ANNOTATI ON/ADDEN DUM Rui YASMIN Briones, [facility] 6 16:33:00 Anxiety state 491114947 Completed 201201/15/2014 RECORDED 07/10/19 13 11:29AM BY RUI PHILIPPE MA, ANNOTATI ON/ADDEN DUM YASMIN Butler, [facility] 6 16:33:00 Gastroes ophageal reflux disease 089734247 Completed 201201/15/2014 RECORDED 07/10/19 13 11:29AM BY RUI PHILIPPE MA, ANNOTATI ON/ADDEN DUM YASMIN Butler, [facility] 6 16:33:00 Headache 11347897 Completed 201201/15/2014 RECORDED 07/10/19 13 11:29AM BY CHATO MARTINS I ANNOTATI ON/ADDEN DUM Rui johnson MA null, [facility] 6 16:33:00 Migraine 62864908 Completed 201201/15/2014 RECORDED 07/10/19 13 11:29AM BY RUI PHILIPPE MA, ANNOTATI ON/ADDEN DUM Deepika Tolentino null, [facility] 4 08:46:05 Anxiety state 867078372 Completed 201202/04/2014 RECORDED 07/10/19 13 11:29AM BY RUI PHILIPPE MA, ANNOTATI ON/ADDEN DUM Rui Cassi-YASMIN Gray, [facility] 6 16:33:00 Gastroes ophageal reflux disease 919625699 Completed 201202/04/2014 RECORDED 07/10/19 13 11:29AM BY RIU PHILIPPE MA, ANNOTATI ON/ADDEN DUM Rui Cassi-YASMIN Gray, [facility] 6 16:33:00 Headache 58765169 Completed 201202/04/2014 RECORDED 07/10/19 13 11:29AM BY CHATO MARTINS I, ANNOTATI ON/ADDEN DUM Riu Cassi-Ma YASMIN johnson, [facility] 6 16:33:00 Palpitat ions 29893466 Completed 201201/15/2014 RECORDED 08/10/19 13 4:44PM BY CHATO MARTINS I ANNOTATI ON/ADDEN DUM Rui Cassi-YASMIN Gray, [facility] 6 16:33:00 Palpitat ions 88669932 Completed 201202/04/2014 RECORDED 08/10/19 13 4:44PM BY CHATO MARTINS I ANNOTATI ON/ADDEN DUM Rui Cassi-YASMIN Gray, [facility] 6 16:33:00 General symptom 458684362 Completed 201201/15/2014 RECORDED 10/06/19 13 11:23AM BY ALEX HURST MA, ANNOTATI ON/ADDEN DUM Rui Cassi-YASMIN Gray, [facility] 6 16:33:00 General symptom 183306099 Completed 201202/04/2014 RECORDED 10/06/19 13 11:23AM BY ALEX HURST MA, ANNOTATI ON/ADDEN DUM YASMIN Butler, [facility] 6 16:33:00 History of clinical finding in subject 781110722 Completed 201210/27/2015 YASMIN Butler, [facility] 6 16:33:00 Tobacco user 636774159 Completed 201201/15/2014 RECORDED 02/14/20 13 11:35AM BY RUI PHILIPPE MA, ANNOTATI ON/ADDEN DUM Pippa Irvin MA null, [facility] 8 10:39:31 Adult health examinat ion Completed 201201/15/2014 RECORDED 02/14/20 13 11:35AM BY RUI PHILIPPE MA, ANNOTATI ON/ADDEN DUM Rui johnson MA null, [facility] 6 16:33:00 Finding by method Completed 201201/15/2014 RECORDED 02/14/20 13 11:35AM BY RUI PHILIPPE MA, ANNOTIGLESIA ON/ADDEN DUM YASMIN Butler, [facility] 6 16:33:00 Adult health examinat ion Completed 201202/04/2014 RECORDED 02/14/20 13 11:35AM BY RUI PHILIPPE MA, ANNOTIGLESIA ON/ADDEN DUM Rui johnson MA null, [facility] 6 16:33:00 Finding by method Completed 201202/04/2014 RECORDED 02/14/20 13 11:35AM BY RUI PHILIPPE MA, ANNOTIGLESIA ON/ADDEN DUM Rui johnson MA null, [facility] 6 16:33:00 Acute bronchit is 56014374 Completed 201201/15/2014 RECORDED 05/01/20 13 9:59AM BY RUI PHILIPPE MA, ANNOTATI ON/ADDEN DUM Rui Cassi-Yasmin johnson MA null, [facility] 6 16:33:00 Acute bronchit is 65150457 Completed 201202/04/2014 RECORDED 05/01/20 13 9:59AM BY RUI PHILIPPE MA, SHANI ON/ADDEN DUM Rui Cassi-Yasmin johnson MA null, [facility] 6 16:33:00 Follow-u p encounte r Completed 201301/15/2014 RECORDED 08/16/19 14 11:01AM BY RD MCKEE MA, SHANI ON/ADDEN DUM Rui Cassi-Yasmin johnson MA null, [facility] 6 16:33:00 Influenz a vaccine needed [id number] 06 Completed 201301/15/2014 RECORDED 08/16/19 14 11:00AM BY RD MCKEE MA, SHANI ON/ADDEN DUM Rui Dmitry johnson MA null, [facility] 6 16:33:00 Follow-u p encounte r Completed 201302/04/2014 RECORDED 08/16/19 14 11:01AM BY RD MCKEE MA, SHANI ON/ADDEN DUM Rui Dmitry johnson MA null, [facility] 6 16:33:00 Influenz a vaccine needed [id number] 06 Completed 201302/04/2014 RECORDED 08/16/19 14 11:00AM BY RD MCKEE MA, SHANI ON/ADDEN DUM Rui Cassi-YASMIN Gray, [facility] 6 16:33:00 Chest pain 61171600 Completed 201301/15/2014 IMPRESSI ON: RESOLVED , ER DISCHARG E SUMMARY REVIEWED , STRESS ECHO 08/09 WAS NORMAL, REASSURA NCE GIVEN; RECORDED 09/08/19 14 7:57AM BY BRIANNE YUNGATI ON/ADDEN DUM Rui Cassi-YASMIN Gray, [facility] 6 16:33:00 Chest pain [id number] Completed 201302/04/2014 IMPRESSI ON: RESOLVED , ER DISCHARG E SUMMARY REVIEWED , STRESS ECHO 08/09 WAS NORMAL, REASSURA NCE GIVEN; RECORDED 09/08/19 14 7:57AM BY BRIANNE YUNGATI ON/ADDEN DUM Rui Cassi-YASMIN Gray, [facility] 6 16:33:00 Anxiety disorder 633435226 Completed 201301/15/2014 RECORDED 09/19/19 14 1:28PM BY ALEX HURST MA, SHANI ON/ADDEN DUM Rui Cassi-YASMIN Gray, [facility] 6 16:33:00 Cough 54534094 Completed 201301/15/2014 RECORDED 09/19/19 14 1:28PM BY ALEX HURST MA, SHANI ON/ADDEN DUM Rui Cassi-YASMIN Gray, [facility] 6 16:33:00 Anxiety disorder 002549954 Completed 201302/04/2014 RECORDED 09/19/19 14 1:28PM BY ALEX HURST MA, SHANI ON/ADDEN DUM Rui Cassi-YASMIN Gray, [facility] 6 16:33:00 Cough 95269889 Completed 201302/04/2014 RECORDED 09/19/19 14 1:28PM BY ALEX HURST MA ANNOTIGLESIA ON/ADDEN DUM Rui Cassi-Ma YASMIN johnson, [facility] 6 16:33:00 Allergic rhinitis 35840044 Active 2013 Not Available [facility] 2 13:24:12 Benign paroxysm al position al vertigo 809248328 Completed 201305/14/2022 Abdias Bowman PA-C [address] [address], [place], [address] , [facility] 2 15:22:17 Elevated blood-pr essure reading without diagnosi s of hyperten jv 772173370 Completed 201312/17/2022 Frederic Wong MD [address] [address], [place], [address] , [facility] 3 09:35:48 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 Completed 201302/25/2018 Tomer Norwood MD [address] [address], [place], [address] , [facility] 8 12:00:33 Disorder of autonomi c nervous system [id number] Completed 201305/14/2022 Abdias Bowman PA-C [address] [address], [place], [address] , [facility] 2 15:22:48 Malaise and fatigue [id number] Completed 201302/25/2018 Tomer Norwood MD [address] [address], [place], [address] , [facility] 8 12:00:29 Fibromyo sitis [id number] Completed 201305/14/2022 Abdias Bowman PA-C [address] [address], [place], [address] , [facility] 2 15:25:33 Tobacco user [id number] Completed 201301/16/2018 YASMIN Allen, [facility] 8 10:39:31 Adult health examinat ion Completed 201310/27/2015 YASMIN Butler, [facility] 6 16:33:00 Hypercho lesterol emia [id number] Completed 201302/25/2018 Tomer Norwood MD [address], [place], [address] , [facility] 8 12:00:18 Pure hypercho lesterol emia [id number] Completed 201302/25/2018 Tomer Norwood MD [address], [place], [address] , [facility] 8 12:00:25 Hypothyr oidism 53141878 Active 2013 Not Available [facility] 2 13:24:13 Insomnia 726447455 Completed 201301/22/2018 Tomer Norwood MD [address], [place], [address] , [facility] 8 12:25:06 Obesity 766934722 Completed 201305/14/2022 Abdias Bowman PA-C [address], [place], [address] , [facility] 2 15:25:49 Osteoart hritis 801607404 Completed 201305/14/2022 Abdias Bowman PA-C [address], [place], [address] , [facility] 2 15:24:56 Idiopath ic peripher al neuropat hy 09519603 Active 2013 Not Available [facility] 2 13:24:12 Tinnitus 64260251 Active 2013 Not Available [facility] 2 13:24:12 Vitamin D deficien cy 54658112 Completed 201309/12/2024 Frederic Wong MD [address], [place], [address] , [facility] 5 17:39:11 Pure hypercho lesterol emia 445084119 Completed 201302/04/2014 RECORDED 09/29/19 14 9:51AM BY RUI PHILIPPE MA, OFFICE VISIT Tomer Norwood MD [address], [place], [address] , [facility] 8 12:00:25 Atrophic vaginiti s 52042513 Completed 201409/05/2023 Frederic Wong MD [address], [place], [address] , [facility] 4 18:49:09 Osteoart hritis of hip 085460050 Active 2016 Not Available [facility] 2 13:24:13 Dental caries 07650561 Completed 201705/14/2022 Frederic Wong MD [address], [place], [address] , [facility] 5 14:49:32 Chronic maxillar y sinusiti s 42495355 Completed 201705/14/2022 Abdias Bowman PA-C [address], [place], [address] , [facility] 2 15:21:59 Chronic maxillar y sinusiti s 14275294 Active 2017 Pippa Irvin [place] [facility], [facility] 4 14:44:08 Dental caries 66205108 Completed 201709/06/2023 Frederic Wong MD [address], [place], [address] , [facility] 5 14:49:32 Dental caries 45745693 Completed 201709/14/2024 Frederic Wong MD [address], [place], [address] , [facility] 5 14:49:32 Primary insomnia 1398054 Active 2017 Not Available [facility] 2 13:24:12 Osteoart hritis of joint of hand 93514382 Active 2018 B hands - cont to f/u c ATC Abdias Bowman PA-C [address], [place], [address] , [facility] 2 15:24:48 Intermit tent claudica tion 76810814 Completed 201909/05/2023 Frederic Wong MD [address] [facility] [address], [place], [address] , [facility] 4 18:45:23 Abnormal liver function 43517584 Completed 201909/05/2023 Frederic Wong MD [address] [facility] [address], [place], [address] , [facility] 4 18:39:28 Venous varices 889833177 Completed 202005/14/2022 Abdias Bowman PA-C [address], [place], [address] , [facility] 2 15:26:20 Costal chondrit is 80144634 Completed 202005/14/2022 Abdias Bowman PA-C [address] [facility] [address], [place], [address] , [facility] 2 15:22:27 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 51170139458 586700 Active 2021 Not Available [facility] 2 13:24:13 Excessiv e daytime sleepine ss - normal night sleep 864293061 Completed 202109/05/2023 Frederic Wong MD [address], [place], [address] , [facility] 4 18:49:17 Persiste nt cough 958356842 Completed 202105/14/2022 Abdias Bowman PA-C [address], [place], [address] , [facility] 2 15:25:11 External hemorrho ids 16745901 Active 2021 Not Available [facility] 2 13:24:12 Dysuria 62001135 Completed 202105/14/2022 Abdias Bowman PA-C [address], [place], [address] , [facility] 2 15:23:28 Constipa tion 69771509 Completed 202109/05/2023 RECORDED 06/23/20 12 10:31AM BY SHANI YUNG ON/ADDEN DUM Frederic Wong MD [address], [place], [address] , [facility] 4 18:49:05 Prediabe sandra 813200502 Active 2021 Abdias Bowman PA-C [address], [place], [address] , [facility] 2 15:26:20 History of SARS-CoV -2 94132456180 0396678 Active 2021 Melissa Lozano [place] [facility], [facility] 2 14:45:38 COVID-19 054065206 Completed 202112/17/2022 Frederic Wong MD [address], [place], [address] , [facility] 3 09:35:26 Obstruct fe sleep apnea of adult 50359624879 03 Active 2022 Frederic Wong MD [address], [place], [address] , [facility] 3 09:55:07 Anal fissure 87774301 Active 2023 Frederic Wong MD [address], [place], [address] , [facility] 4 15:25:06 Body mass index 25-29 - overweig ht 850644537 Active 2023 Frederic Wong MD [address], [place], [address] , [facility] 4 15:38:14 Overweig ht 817595854 Active 2023 Frederic Wong MD [address], [place], [address] , [facility] 4 15:38:15 Transien t cerebral ischemia 573390171 Active 2023 Frederic Wong MD [address], [place], [address] , [facility] 4 15:39:15 Lighthea dedness 073129412 Completed 202303/12/2024 Frederic Wong MD [address], [place], [address] , [facility] 4 22:01:53 Intermit tent palpitat ions 610980801 Active 2023 Braeden Mcgregor [facility] [address], [place], [address] , [facility] 4 14:42:45 Problem Notes None recorded. Procedures Surgical History Date Name Laterality Status Provider Name and Address Organization Details Recorded Time 03/18/20 radiographic imaging procedure completed Shirlene Junior [facility] 03/25/2025 11:59:45 09/15/19 25 Advanced Care Planning completed Frederic Wong MD [address], [place], [address], [facility] 09/12/2024 17:32:29 10/25/19 24 Endoscopic us exam esoph completed Kiara Valentino [facility] 10/26/2023 08:37:01 10/25/19 24 Egd diagnostic brush wash completed Kiara Valentino [facility] 10/27/2023 07:49:10 09/06/19 24 Advanced Care Planning completed Frederic Wong MD [address], [place], [address], [facility] 09/05/2023 18:28:02 02/04/20 22 Most Recent Mammogram completed Pippa Irvin MA [facility] 09/06/2023 15:00:08 10/22/19 22 Date of Last Colonoscopy completed Pippa Irvin MA [facility] 09/06/2023 14:59:10 10/22/19 22 Colonoscopy completed Kiara Valentino [facility] 05/25/2023 10:59:03 01/21/20 20 Six-Item Cognitive Test completed Pippa Irvin MA [facility] 01/21/2020 13:50:47 03/31/20 18 Most Recent Bone Density completed Rui baca MA [facility] 04/19/2018 09:46:36 03/31/20 18 Dxa bone density study completed Rui baca MA [facility] 04/19/2018 09:46:29 03/31/20 18 Mammogram screening completed Jayla Mckeon [facility] 03/31/2018 16:06:37 07/25/19 18 Fall Risk Assessment completed Rui baca MA [facility] 07/25/2017 10:23:50 08/06/19 16 Fall Risk Assessment completed Rui baca MA [facility] 08/06/2015 10:59:10 08/06/19 16 Advanced Care Planning completed Tomer Norwood MD [address] [facility] [address], [place], [address], [facility] 08/07/2015 07:59:56 06/27/19 12 Breast reduction completed Rui baca MA [facility] 08/06/2015 10:56:42 excision of cyst completed Rui baca MA [facility] 10/29/2019 10:12:56 Cataract Surgery completed Frederic Wong MD [address] [address], [place], [address], [facility] 09/06/2023 15:29:09 total replacement of hip completed Frederic Wong MD [address] [facility] [address] [facility], [place], [address], [facility] 09/06/2023 15:29:20 Imaging Results None recorded. Procedure Notes None recorded. Medical Equipment None Reported. Allergies Allergen ID Allergen Name Allergen Category Reaction Reaction Severity Criticality Documentation Date Start Date Code Code System Note Provider Name and Address Organization Details Recorded Time 43506 No known allergy (situatio n) Not available Not available Not available Not available 01/08/20142011 83331 6003 SNOMED COMME NT: RECOR DED 11/30 2:59P M BY DAVID JOHNSON MA, ANNOT ATION /ADDE NDUM; Not Available [facility] 4 13:27:40 80075 acetamino phen / oxycodone medicatio n dizziness Not available Not available 01/08/20142013 68471 3 RxNorm [place], [facility] 4 11:29:33 23080 pravastat in medicatio n myalgias (muscle pain) Not available Not available 08/12/2022 33522 RxNorm Frederic Wong MD [address] [facility] [address] [facility] [address], [facility] 3 15:39:40 72122 atorvasta tin medicatio n myalgias (muscle pain) Not available Not available 09/06/2023 22597 RxNorm YASMIN Allen, [facility] 4 14:55:41 44569 rosuvasta tin medicatio n myalgias (muscle pain) Not available low 09/06/2023 13375 2 RxNorm Frederic Wong MD [address] [facility] [address], [facility] [place], [address], [facility] 4 15:24:22 Medications Name Sig Start Date [...] active RECORDED 08/12/19 11 2:45PM BY SHANI BECERRA/MARILYN ORELLANA; Not Available Not Available Not Available [...] 50 mg-325 mg-40 mg tablet Q 4 HOURS/NM N 05/09 completed RECORDED 05/09/20 13 3:55PM BY TOMER NORWOOD MD, REFILL REQUEST; THIS ORDER DISCONTI NUED PER [facility] [facility]. Not Available Not Available Not Available [...] t Available Vitals Date Recorded Body height Body mass index (BMI) Body weight Heart rate Oxygen saturation Body temperature Systolic And Diastolic Provider Name and Address Organization Details Last Updated DateTime 5 172.72 cm 29 kg/m2 22398.1 4 g 76 /min 97 % 97.7 [degF] 106/69 mm[Hg] Rui dominguez MA [facility] [place] 5 13:19:46 Date Recorded Body height Body mass index (BMI) Body weight Heart rate Oxygen saturation Body temperature Systolic And Diastolic Provider Name and Address Organization Details Last Updated DateTime 5 172.72 cm 28.9 kg/m2 81468.5 5 g 71 /min 95 % 97.7 [degF] 106/70 mm[Hg] Melissa Lozano [facility] [place] 5 14:25:56 Date Recorded Body height Heart rate Oxygen saturation Body temperature Systolic And Diastolic Provider Name and Address Organization Details Last Updated DateTime 4 172.72 cm 72 /min 98 % 98 [degF] 106/69 mm[Hg] Rui dominguez MA [facility] [place] 4 09:33:48 Date Recorded Body height Oxygen saturation Heart rate Body temperature Systolic And Diastolic Provider Name and Address Organization Details Last Updated DateTime 4 172.72 cm 98 % 73 /min 97.3 [degF] 115/69 mm[Hg] Pippa Irvin MA [facility] [place] 4 14:29:53 Date Recorded Body height Heart rate Oxygen saturation Body temperature Systolic And Diastolic Provider Name and Address Organization Details Last Updated DateTime 5 172.72 cm 73 /min 97 % 97.7 [degF] 99/66 mm[Hg] Rui dominguez MA [facility] 11:20:00 Social History Question Answer Notes LastModified by Organizat ion Details LastModified Time Tobacco Smoking Status Former Smoker 1997 Melissa Travis [facility] 09/14/2024 14:46:36 Do You Have An Advance [...] Or Greater Than 100 Degrees Fahrenheit? No [email or web address] Information not available 01/21/2020 Are You Or Anyone In Your Household A Health Care Provider Or Emergency Responder? No [email or web address] Information not available 01/21/2020 To The Best Of Your Knowledge Have You Been In Close Proximity To Any Individual Who Tested Positive For COVID-19? No [email or web address] Information not available 01/21/2020 *AWV ONLY* Are [...] 04/22/2014 What Is Your Current Pack Years? [facility] Information not available 09/14/2024 Do You Use Protection During Sex? No Information not available 08/06/2015 Seat Belts Used Routinely Yes Information not available 08/06/2015 Are You Sexually Active? Yes Information not available 08/06/2015 Smoke Alarm In Home Yes Information not available 08/06/2015 At What Age Did You Start Smoking Tobacco? 26 [email or web address] Information not available 09/14/2024 Are You Passively [...] 10/29/2019 Are you currently employed? No part-time [employer] Information not available 09/14/2024 Are you able to walk independently without assistance or assistive devices? [employer] Information not available 04/20/2021 Are you able to care for yourself independently? Yes Information not available 04/22/2014 What is your occupation? Retired [employer] Information not available 05/26/2022 Do you or [...] available 12/19/2015 13:53:28 Son Heart disease 43 Not available 12/17 09:09:54 Medical History No medical history recorded. Gynecological History Statement/Question Response Date of Last Colonoscopy 10/21/2021 Most Recent Mammogram 02/03/2022 Most Recent Bone Density 03/31/2018 Obstetrics History GPAL:G 0 P 0 0 0 0 Immunizations Vaccine Type Date Status Note Provider Nam e and Address Organization Details Recorded Time Influenza, split virus, trivalent, preservative 5 completed Not Available [facility] 08/05/2023 17:09:39 Influenza, split virus, trivalent, preservative 8 completed Not Available [facility] 08/05/2023 17:09:39 Influenza, high-dose, trivalent, PF 8 completed Not Available [facility] 08/05/2023 17:09:39 Influenza, high-dose, trivalent, PF 9 completed Not Available [facility] 08/05/2023 17:09:39 Influenza, high-dose, trivalent, PF 0 completed Not Available [facility] 08/05/2023 17:09:39 COVID-19, mRNA, LNP-S, PF, 100 mcg/0.5mL dose or 50 mcg/0.25mL dose 1 completed Not Available [facility] 08/05/2023 17:09:39 COVID-19, mRNA, LNP-S, PF, 100 mcg/0.5mL dose or 50 mcg/0.25mL dose 1 completed Not Available [facility] 08/05/2023 17:09:39 Influenza, adjuvanted, trivalent, PF 8 completed Not Available [facility] 08/05/2023 17:09:39 Influenza, high-dose, trivalent, PF 6 completed Not Available [facility] 08/05/2023 17:09:39 COVID-19, mRNA, LNP-S, PF, 100 mcg/0.5mL dose or 50 mcg/0.25mL dose 1 completed Not Available [facility] 08/05/2023 17:09:39 zoster live 3 completed Not Available [facility] 08/05/2023 17:09:39 Influenza, adjuvanted, quadrivalent, PF 0 completed Not Available [facility] 08/05/2023 17:09:39 Influenza, high-dose, quadrivalent, PF 2 completed Not Available [facility] 08/05/2023 17:09:39 Influenza, high-dose, quadrivalent, PF 1 completed Not Available [facility] 08/05/2023 17:09:39 Pneumococcal conjugate PCV 13 8 completed Not Available [facility] 08/05/2023 17:09:39 COVID-19, mRNA, LNP-S, PF, 30 mcg/0.3 mL dose, effie-sucrose 2 completed Not Available [facility] 08/05/2023 17:09:39 Td (adult), 2 Lf tetanus toxoid, preservative free, adsorbed 0 completed Not Available [facility] 08/05/2023 17:09:39 pneumococcal polysaccharide PPV23 0 completed Not Available [facility] 08/05/2023 17:09:39 zoster recombinant 4 completed Kiara ahumada, [facility] 01/30/2024 09:04:41 RSV, bivalent, protein subunit RSVpreF, diluent reconstituted, 0.5 mL, PF 4 completed Kiara ahumada, [facility] 01/30/2024 09:04:41 Influenza, high-dose, trivalent, PF 4 completed Kiara Valentino null, [facility] 01/30/2024 09:04:41 zoster, unspecified formulation 5 completed Kiara ahumada, [facility] 11/29/2024 08:30:22 Pneumococcal conjugate PCV21, polysaccharide [id number] conjugate, PF 5 completed Kiara ahumada, [facility] 11/29/2024 08:30:22 zoster recombinant 5 completed Kiara ahumada, [facility] 11/29/2024 08:30:22 Influenza, high-dose, quadrivalent, PF 3 completed Frederic Wong MD [address] [address], [place], [address], [facility] 05/14/2023 22:41:22 Tdap 9 completed Not Available [facility] 08/05/2023 17:09:39 Influenza, split virus, trivalent, preservative 3 completed Not Available [facility] 08/05/2023 17:09:39 Influenza, split virus, trivalent, preservative 4 completed Not Available [facility] 08/05/2023 17:09:39 zoster live 3 completed Not Available [facility] 08/05/2023 17:09:39 Influenza, high-dose, trivalent, PF 5 completed Frederic Wong MD [address], [address], [facility] 03/18/2025 12:11:46 Past Encounters Encounter ID Performer Location Encounter Start Date Encounter Closed Date Diagnosis/Indication Diagnosis SNOMED-CT Code Diagnosis ICD10 Code Diagnosis IMO Codes Diagnosis Note [id number] autoEComm erce [address] [facility] [place] [address] 12/16/2006 00:00:00 [id number] autoEComm erce [address] [facility] [place] [address] 05/09/2007 00:00:00 [id number] autoEComm erce [address] [facility] [place] [address] 05/09/2007 00:00:00 [id number] autoEComm erce [address] [facility] [place] [address] 05/09/2007 00:00:00 [id number] autoEComm erce [address] [facility] [place] [address] 11/14/2007 00:00:00 [id number] autoEComm erce [address] [facility] [place] [address] 06/06/2008 00:00:00 [id number] autoEComm erce [address] [facility] [place] [address] 06/06/2008 00:00:00 [id number] autoEComm erce [address] [facility] [place] [address] 06/06/2008 00:00:00 [id number] autoEComm erce [address] [facility] [place] [address] 11/29/2008 00:00:00 [id number] autoEComm erce [address] [place] [address] 11/29/2008 00:00:00 [id number] autoEComm erce [address] [place] [address] 11/29/2008 00:00:00 [id number] autoEComm erce [address] [place] [address] 02/26/2009 00:00:00 [id number] autoEComm erce [address] [place] [address] 04/09/2009 00:00:00 [id number] autoEComm erce [address] [facility] [address] [place] [address] 07/25/2009 00:00:00 [id number] autoEComm erce [address] [place] [address] 07/25/2009 00:00:00 [id number] autoEComm erce [address] [facility] [address] [place] [address] 07/25/2009 00:00:00 [id number] autoEComm erce [address] [facility] [address] [place] [address] 01/14/2010 00:00:00 [id number] autoEComm erce [address] [facility] [address] [place] [address] 01/14/2010 00:00:00 [id number] autoEComm erce [address] [facility] [address] [place] [address] 12/11/2010 00:00:00 [id number] autoEComm erce [address] [facility] [address] [place] [address] 12/11/2010 00:00:00 [id number] autoEComm erce [address] [facility] [address] [place] [address] 02/26/2011 00:00:00 [id number] autoEComm erce [address] [place] [address] 02/26/2011 00:00:00 [id number] autoEComm erce [address] [place] [address] 06/01/2011 00:00:00 [id number] autoEComm erce [address] [place] [address] 06/01/2011 00:00:00 [id number] autoEComm erce [address] [place] [address] 08/24/2011 00:00:00 [id number] autoEComm erce [address] [place] [address] 08/24/2011 00:00:00 [id number] autoEComm erce [address] [facility] [address] [place] [address] 06/23/2012 00:00:00 [id number] autoEComm erce [address] [facility] [address] [place] [address] 06/23/2012 00:00:00 [id number] autoEComm erce [address] [facility] [address] [place] [address] 08/11/2012 00:00:00 [id number] autoEComm erce [address] [facility] [address] [place] [address] 10/05/2012 00:00:00 [id number] autoEComm erce [address] [facility] [address] [place] [address] 10/05/2012 00:00:00 [id number] autoEComm erce [address] [facility] [address] [place] [address] 02/09/2013 00:00:00 [id number] autoEComm erce [address] [facility] [address] [place] [address] 05/01/2013 00:00:00 [id number] autoEComm erce [address] [place] [address] 07/30/2013 00:00:00 [id number] autoEComm erce [address] [facility] [place], [place] [address] 07/30/2013 00:00:00 [id number] autoEComm erce [address] [facility] [place], [place] [address] 07/30/2013 00:00:00 [id number] autoEComm erce [address] [facility] [place], [place] [address] 08/16/2013 00:00:00 [id number] autoEComm erce [address] [facility] [place], [place] [address] 09/28/2013 00:00:00 [id number] autoEComm erce [address] [facility] [place], [place] [address] 09/28/2013 00:00:00 [id number] Tomer Norwood MD Main Office [address] [address] [place] [address] 04/22/2014 11:22:21 04/22/2014 12:22:29 Hypercholesterolemia 48629149 Anxiety [id number] Tomer Norwood MD Main Office [address] [address] [place] [address] 08/06/2015 10:42:29 08/06/2015 12:02:07 Adult health examination 226163362 Z00.00 Advance di rective discussed with patient 788661235 Z71.89 Menopause present 617897 006 Z78.0 Idiopathic peripheral neuropathy 42953472 G60.9 Migraine 89042203 G43.90 9 Hypothyroidism 39207181 E03.9 Hyperlipidemia 14086731 E78.5 Fatigue 95010813 R53.83 [id number] Tomer Norwood MD Main Office [address] [address] [place] [address] 12/19/2015 13:30:51 12/19/2015 14:59:35 Insomnia 244419992 G47.00 Osteoarthritis of hip 23 2342705 M16.9 Lesion of skin of face [id number] 06 L98.9 [id number] Tomer Norwood MD Main Office [address] [address] [place] [address] 07/27/2016 14:36:10 07/27/2016 21:26:46 [id number] Abdias Bowman PA-C Main Office [address] [address] [place] [address] 06/28/2017 10:22:45 06/28/2017 11:24:09 Fatigue 92163191 R53.83 will check bloodwork for further evaluation of her fatigue - will check cbc (wbc ct) about her immune system - - also ? if low vit D may be related to her recent teeth problems 25 minute office visit with greater than 50% of the visit face-to-fa ce with the patient and/or family providing counseling and/or coordinati on of care. Hyperglycemia 74173714 R 73.9 high gluc 11.16 Dental abscess 277718244 K04.7 cont abx as dir by dentist - next f/u next week Vitamin D deficiency 347 73899 E55.9 Hypothyroidism 62554181 E03.9 last tsh 6.42 back in 11.16 Osteoarthritis 573386719 M19.90 B hands - cont to f/u c ATC - will check bmp (see above) d/t chronic nsaids [id number] Tomer Norwood MD Main Office [address] [address] [place] [address] 07/25/2017 09:57:18 07/25/2017 11:17:05 Adult health examination 339231188 Z00.00 Patient declines mini-cog test Hypothyroidism 35913916 E03.9 Vitamin D deficiency 347 24929 E55.9 Hyperlipidemia 22455389 E78.5 Headache 85596901 R51 [id number] ABNER Villavicencio Main Office [address] [address] [place] [address] 10/10/2017 10:39:49 10/10/2017 11:36:04 Fatigue 27936361 R53.83 will add CBC, she has other lab orders from PCP for Thyroid, chol, and vit D follow-up. Left lower quadrant pain 049088745 R10.32 patient very tender to LLQ on exam with low back pain and urinary frequency will check pelvic US. she does have appt with [facility] 11/08. [id number] Tomer Norwood MD Main Office [address] [facility] [address] [place] [address] 01/16/2018 10:20:41 01/16/2018 11:27:39 Administration of pneumococcal vaccine 68978437 Z23 Hepatitis C screening 41 9504314 Z11.59 Migraine 78970705 G43.90 9 Hypothyroidism 99235640 E03.9 Insomnia 392334468 G47.0 0 Hyperlipidemia 75490155 E78.5 [id number] Maximus Casper MD Main Office [address] [place] [address] 10/05/2018 10:02:42 10/05/2018 11:20:46 Adult health examination 590278083 Z00.00 Vitamin D deficiency 347 84779 E55.9 Hypothyroidism 62493689 E03.9 Hyperlipidemia 58924836 E78.00 off zocor x 4 months - recheck lipids Allergic rhinitis 826882 04 J30.9 stable lately Osteoarthritis of hip 23 0401890 M16.11 s/p R THR, cont meds, f/u c ortho prn Primary insomnia 1674215 F51.01 Anxiety 68293347 F41.9 stable on med, no see counsellor Gastroesop hageal reflux disease 181686656 K21.9 prn ppi Migraine 87380942 G43.90 9 prn meds helpful Body mass index 25-29 - overweight 924596813 Z68.28 Idiopathic peripheral neuropathy 89029944 G60.9 seen by neuro in past Impaired f asting glycemia 017789742 R73.01 Osteoarthritis 751120607 M19.90 B hands - cont to f/u c ATC Varicella vaccination 68 901138 Z23 [id number] Maximus Casper MD Main Office [address] [place] [address] 08/06/2019 09:43:06 08/06/2019 10:58:53 Thyroid nodule 403313181 E04.1 Will have pt screened for thyroid nodule a this was felt by dental provider. TSH is normal, check recently Pain of ear 130749550 H9 2.02 Pt with ongoing ear pain, ? TMJ, under treatment. Due to ongoing pain would have ENT evaluation . [id number] Maximus Casper MD Main Office [address] [address] 08/28/2019 08:54:11 08/28/2019 09:34:42 Pre-surgery evaluation 991060129 Z01.818 Bilateral cataracts 9572 2003 H25.013 Hyperlipidemia 89162869 E78.00 Hypothyroidism 55488147 E03.9 Vitamin D deficiency 347 42189 E55.9 rec. otc vit D3 1000iu tablet daily Anxiety 93125763 F41.9 pt requests refill Idiopathic peripheral neuropathy 51705647 G60.9 seen by neuro in past Osteoarthritis of hip 23 8748358 M16.11 s/p R THR, cont meds, f/u c ortho prn [id number] Tomer Norwood MD Main Office [address] [address] 10/29/2019 09:26:40 10/29/2019 11:49:52 Intermittent claudication 30180913 I73.9 Left leg [id number] Maximus Casper MD Main Office [address] [address] 01/21/2020 13:22:40 01/21/2020 14:56:42 Adult health examination 045146925 Z00.00 Requires a tetanus booster 586271862 Z23 Screening for malignant neoplasm of breast 877938980 Z12.39 Administra tion of pneumococcal vaccine 21083341 Z23 Menopause present 402889 006 Z78.0 Idiopathic peripheral neuropathy 83093591 G60.9 seen by neuro in past Hyperlipidemia 55722589 E78.00 lipids stable 2.20 Hypothyroidism 00461883 E03.9 Anxiety 12217271 F41.9 stable Osteoarthritis of hip 23 3062219 M16.11 s/p R THR, cont meds, f/u c ortho prn Vitamin D deficiency 347 20424 E55.9 rec. otc vit D3 1000iu tablet daily Impaired f asting glycemia 013972093 R73.01 Lumbosacra l radiculitis 15709755 M54.17 cont PT as dir Gastroesop hageal reflux disease 010916535 K21.9 prn ppi Insomnia 682444249 G47.0 0 cont med as dir Fatigue 38116428 R53.83 Migraine 87564874 G43.90 9 prn meds helpful Body mass index 30+ - obesity 048306824 E66.9 Z68.30 [id number] Maximus Casper MD Main Office [address] [address] [place] [address] 03/17/2020 11:29:13 03/17/2020 13:28:59 Vitamin D deficiency 10986927 E55.9 just finished 50K q wk, rec. otc vit D3 2000iu tablet daily - pending recheck Hypothyroidism 33342443 E03.9 tsh stable, cont supp as dir Fatigue 65453260 R53.83 fatigue persists despite vit d supp, now c sob - see below Dyspnea 979872801 R06.00 negative covid test a few wks ago, will check probnp and ekg --offered reassuranc e c nl ekg Cough 70134721 R05 see above, check cxr as well [id number] Tomer Norwood MD Main Office [address] [address] [place] [address] 05/27/2020 13:48:23 05/27/2020 14:46:45 Abdominal pain 32842431 R10.9 just in case gallbladde r is involved we will test CBC and hepatic panel. Costal chondritis 253701 04 M94.0 recommend to use warm compress and take naprosyn or Motrin as discussed. [id number] Frederic Wong MD Main Office [address] [address] [place] [address] 08/06/2020 13:17:45 08/06/2020 14:06:50 Costal chondritis 91236256 M94.0 Will do trial of prednison, she is already on celebrex which she can continue after.She is already being followed by cardiologi st to r/o any cardiac causesAdvi sed cw warm compress.P atient aware red flags of PE/DVT/Wor sening SOB or difficulty breathing and when to go to ED in addition we discussed that if she has CP if worse on exertion if she is diaphoreti c pain that radiates to arm and jaw then she is to go to ED.Will f/u in 2 weeks. Dyspnea 406273604 R06.00 Patient is able to speak in full sentences she is saturation well, walks without any respirator y distress and is not using any sings of accessory muscles of respiratio Vani PE and DVT score was 0 thus will hold d-dimerPat ient had recent cbc in did not suggest anemia and TSH in 12/2019 did not suggest any pathology. Patient to get TTE thus will hold getting BNP in addition no clinical signs, however did have mild BNP elevation and thus TTE would be next test to eval.She is being followed by cardiology thus will have cardiology eval and r/o cardiac causes.She has hx of smoking will get XR first if negative will consider PFT.Patien t aware red flags of PE/DVT/Wor sening SOB or difficulty breathing and when to go to ED in addition we discussed that if she has CP if worse on exertion if she is diaphoreti c pain that radiates to arm and jaw then she is to go to ED. Allergic rhinitis 828460 04 J30.9 Will send flonase advised continue use and not PRN. [id number] Frederic Wong MD Main Office [address] [place] [address] 08/29/2020 14:34:13 09/01/2020 10:02:10 Costal chondritis 01084315 M94.0 Given that she is tried prednisone NSAID with no improvemen t I offered the patient a follow-up with a rheumatolo gist versus an orthopedis t to see if there is other things that could be done however at this point the agreement was to work up her fatigue. I am also being I think that given the fact the patient needs sleep medication , her constant complaint of fatigue and pain in multiple joints she may have some fibromyosi tis type component. However will rule out other causes first. Dyspnea 112508070 R06.00 Patient's echo was normal. Given her history of smoking and her continued complaints of intermitte nt dyspnea have gone ahead and ordered a PFTIn addition advised encourage her to follow-up with a cardiologi st to evaluate for cardiac causes.How well is PE DVT scores were not significan t and thus I do not suspect this is related to that however patient aware red flags of PE/DVT/Wor sening SOB or difficulty breathing and when to go to ED in addition we discussed that if she has CP if worse on exertion if she is diaphoreti c pain that radiates to arm and jaw then she is to go to ED. Malaise and fatigue 4688 06926 R53.83 B signs such as, fever, chills, night sweats she declined to be weighed today but notes that she has not lost any weight but rather gained some weight.Whe n I asked her about feeling down depressed she denied this, but does note to loss of interest in doing things. Which may contribute to her fatigue. In addition I feel like some of her symptoms that she is been complainin g of may also be a fibromyalg ia type picture however we must rule out other causes. Nonetheles s I have gone ahead and ordered some labs to work work-up her fatigue. Patient denies any homicidal suicidal ideation this time. Varicose v eins of bilateral lower limbs 7851481870 0925538 I83.93 Patient notes that she has some varicositi es that are painful and some spider vein which is tender for the patient.Sh jeff was inquiring about surgery, and thus have gone ahead and put in a referral for her to see the vascular surgeon to discuss options. Pain in left knee 887355 1560 57177 M25.562 I advised the patient rest, ice heat, elevation, compressio n and continue celecoxib for pain. If there is no improvemen t I advised she get an xray as she meets [place] knee rule given her age however does not meet any of the other criteria. And pain is only on palpation not any other time. [id number] Frederic Wong MD Main Office [address] [place] [address] 09/24/2020 13:49:21 09/24/2020 14:25:55 Abnormal liver function 42311784 K76.89 Patient's labs was noted to have chronic elevated ALP, thus will get isoenzymes of ALP, GGT, 5 nucleotida se, AMA, smooth muscle antibodies and U/S.U/S showed steatosisS he has elevated GGT and 5 nucleotida se but less than 50% thus will observe for nowI belive she has fatty liver disease.Sh jeff denies drinking etoh, and does not use tylenol excessivel y.Diet and exercise discussed and I advised her to avoid hepatotoxi c medication and etoh beverages. Dyspnea 329740451 R06.00 Patient had PFT which was normal.Wel ls DVT/PE score negative.S he is being followed by cardiologi st.I believe this could be related to mentation. Costal chondritis 828131 04 M94.0 Improving, cw with NSAID. Venous varices 757761778 I86.8 Being followed by vascular. [id number] Jovanna smith MD Telehealt h [address] [facility] [address] [place] [address] 09/26/2020 15:29:38 09/27/2020 08:09:29 Acute vaginitis 63472103 N76.0 will try fluconazol e and repeat in 3 days if not better, avoid tight clothing, can use otc cream if not better or call if worsening. [id number] Maximus Casper MD Main Office [address] [facility] [address] [place] [address] 04/20/2021 14:46:46 04/20/2021 16:54:10 Adult health examination 036296266 Z00.00 Influenza vaccine needed 7238549199 106 Z23 Varicella vaccination 68 848463 Z23 Hyperlipidemia 15684463 E78.00 Screening for malignant neoplasm of breast 130961281 Z12.39 Menopause present 852139 006 Z78.0 Screening for malignant neoplasm of cervix 593636272 Z12.4 Intermitte nt claudication 99989179 I73.9 and neuropathy - seen by [facility] specialist - will attempt to get note - apparently had nl head mri Gastroesop hageal reflux disease 691865119 K21.9 prn ppi Hypothyroidism 46638654 E03.9 tsh stable, cont supp as dir Vitamin D deficiency 347 04128 E55.9 recheck Dyspnea 506812621 R06.00 pt states had negative w/u c card & pulm recently - including ekg, echo, pulm fxn test - wonder if d/t deconditio stephanie as not walking as much d/t neuropathy - will attempt to get records -- addendum - rev. initial card ov note, suspected costochond ritis - see below Abnormal l iver function 14146364 K76.89 as per recent CK note --Patient' s labs was noted to have chronic elevated ALP, thus will get isoenzymes of ALP, GGT, 5 nucleotida se, AMA, smooth muscle antibodies and U/S.U/S showed steatosisS he has elevated GGT and 5 nucleotida se but less than 50% thus will observe for Eric villela she has fatty liver disease.Sh e denies drinking etoh, and does not use tylenol excessivel y.Diet and exercise discussed and I advised her to avoid hepatotoxi c medication and etoh beverages. Screening for malignant neoplasm of colon 161585511 Z12.11 Impaired f asting glycemia 223937684 R73.01 Body mass index 25-29 - overweight 441718418 E66.3 Z68.28 Costal chondritis 086742 04 M94.0 rec warm compress to sternum prn Fatigue 06526456 R53.83 fatigue persists despite vit d supp, will check cbc [id number] Jovanna smith MD Main Office [address] [facility] [address] [place] [address] 07/03/2021 13:52:51 07/03/2021 15:14:29 Persistent cough 046028103 R05.3 pt to book covid test at 794-TEST, pt agrees to do this given her symptoms. In the interim will treat for possible covid related bronchitis /pneumonia . Use otc cough med, fluids and rest. Quarantine until covid test is back Counseling 157159333 Z71 .9 Health advice, education or counseling done for COVID 19 Fatigue 73720890 R53.83 labs today, no acute findings on physical exam. Pt denies any anxiety or depression contributi ng to the fatigue. Short term followup with her regular pcp Abdias Bowman. Recommend colon screening and mammogram for HM, will discuss with Aden at next ov. Excessive daytime sleepiness - normal night sleep 706239961 G47.19 Pt agrees to sleep evaluation as her fatigue is worse after a good night's sleep [id number] Maximus Casper MD Main Office [address] [facility] [address] [place] [address] 2021 10:56:16 2021 12:00:29 Fatigue 55646568 R53.83 fatigue better lately - had normal tsh & cbc Varicose v eins of bilateral lower limbs 8436308825 7274458 I83.93 seen by vein specialist a few months ago - rec wear comp socks 15-20mmHg, elevate prn Excessive daytime sleepiness - normal night sleep 661663774 G47.19 pending sleep specialist for eval - sent notice to document review specialist to help coordinate Persistent cough 1772825 02 R05.3 better lately, cont ns spray Impaired f asting glycemia 190186432 R73.01 pending a1c from earlier today - rec low carb diet and increase aerobic ex Hypothyroidism 08904087 E03.9 tsh stable, cont supp as dir [id number] Frederic Wong MD Main Office [address] [place] [address] 09/08/2021 15:05:09 09/08/2021 15:44:39 External hemorrhoids 98547338 K64.4 Continue hydrocorti sone internal and external cream and Witch Emily pads with sitz baths. Dysuria 40911336 R30.9 Constipation 76046221 K5 9.00 recommend to take MiraLax 17 gm in 8 oz of fluid daily and colace 100 mg daily. Increase hydration and fiber. [id number] Maximus Casper MD Main Office [address] [place] [address] 05/26/2022 13:59:10 05/26/2022 15:23:21 Adult health examination 061236467 Z00.00 pt states colon utd & pt states pap/mammo/ bone density utd --- will attempt to get records COVID-19 317026600 U07.1 dx'd last tuesday - feeling better in general - stay hydrated, and rec increase vit d to 6000iu qd x 3 days then back to 2000iu qd (to boost immune system) Hypothyroidism 37484876 E03.9 tsh just slightly elevated, cont supp as dir - except take 2 tabs once/wk --- recheck in 2 months Hyperlipidemia 57094595 E78.00 no tolerate atorvastat in - off it x 2 months -- retry kelly paul Body mass index 25-29 - overweight 943851228 E66.3 Z68.28 Migraine 75359540 G43.90 9 [id number] TASHA CASTRO MD Main Office [address] [facility] [address] [place] [address] 08/12/2022 09:04:41 08/12/2022 09:35:54 Neck pain 04300813 M54.2 - started one week ago and non-improv ing- believe neck pain is more musculatur e- ordered x-ray of the neck to check for severity of degenerati ve disease- for the pain: c/w celecoxib 200mg QD and start tizanidine 4mg BID as needed> pt advised not to take advil on top taking celecoxib> pt advised to stop zolpidem while taking tizanidine > pt advised not to drive while taking the muscle relaxer> pt advised to start taking tizanidine nightly and then during the day if needed- RTC in one week over for follow-up [id number] TASHA CASTRO MD Main Office [address] [facility] [address] [facility] [place] [address] 08/24/2022 14:39:32 08/24/2022 16:17:08 Neck pain 90748505 M54.2 - improving- 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- pt started on steroid pack on 08/19, has not yet completed course however has improved pain but not completely resolved- will stop tizanidine as it did not provide any relief- pt advised to STOP taking celecoxib and advil together- encouraged patient to physical therapy however patient refused- pt referred to physiatry Hypothyroidism 74187600 E03.9 - pt expresses that she would like to check her thyroid levels- ordered repeat TSH- currently on levothyrox ine 88mcg Hyperlipidemia 88235561 E78.00 - pt expresses that she would like to check her lipid levels- ordered lipid profile- pt is not currently on any medication [id number] Maximus Casper MD Main Office [address] [facility] [address] [facility] [place] [address] 09/22/2022 13:26:08 09/22/2022 14:50:28 Cervical radiculopathy 92884999 M54.12 cont f/u c pssp - encouraged pt to f/u c them to consider mri ac she gets naa injxn/PT (as per pt request) - retrial c gbn, last used many yrs ago for neuropathy Hyperlipidemia 86712821 E78.00 tolerating pravastati n, but ldl went from 203 to 211 -- rec increase to 80mg and recheck in 2-3 months rec low carb diet to lower trigs, and decrease your red meat intake to lower your LDL (bad chol) Hypothyroidism 21366903 E03.9 tsh normal - cont supp as dir Headache 96291160 R51.9 see cervical radiculiti s above Cramp in lower limb 4499 71289 R25.2 Unsteady when walking 22 094028 R26.89 [id number] Frederic Wong MD Main Office [address] [facility] [address] [facility] [place] [address] 12/17/2022 08:46:10 12/17/2022 09:44:28 Hyperlipidemia 46449547 E78.5 Will switch statin to 5mg crestor with zetia, advised she can take with otc coq10. Aware to check lipid and LFT in 2 mo.Will get hs CRP, Lpa and ApoB to see risks. Neuropathy 725939287 G62 .9 Has seen neurologmickey galloway in [place].Tel ls me has had EMG in past.On gabapentin already advised to try ALA 600 mg otcWill get lab workup to r/o other causes.Ref erral the neurology provided. Migraine without aura 56 663551 G43.009 Also having neuropathy with headaches, is on fioricet which I advised is no longer first line for migraine/h eadaches. I also think her neck contribute to her headaches. Given neuropathy and headache will refer to neuro. Hypothyroidism 25313264 E03.9 Stable on current dose. Obstructiv e sleep apnea of adult 2120403756 103 G47.33 Advised to follow up with sleep medicine [id number] Frederic Wong MD Main Office [address] [facility] [address] [place] [address] 05/13/2023 12:42:07 05/13/2023 13:54:34 Hyperlipidemia 30116678 E78.5 Neuropathy 304662516 G62 .9 Migraine without aura 56 902889 G43.009 Influenza vaccine needed 4565119174 106 Z23 Epigastric pain 69584442 R10.13 Diarrhea 22707953 R19.7 Indigestion 988803001 R1 0.13 Tension-type headache 39 2417093 G44.209 [id number] Maximus Casper MD Main Office [address] [address] [place] [address] 05/28/2023 10:22:57 05/28/2023 11:22:56 Hemorrhoids 93729701 K64.9 Significan t symptoms, constipati on likely a factor. Will try topical therapy and see if resuming magnesium at lower dose. Referral provided to Chronic constipation 236 940134 K59.09 [id number] Frederic Wong MD Main Office [address] [address] [place] [address] 06/22/2023 14:37:01 06/22/2023 15:45:04 Hyperlipidemia 95953769 E78.5 Neuropathy 451505500 G62 .9 Migraine without aura 56 675399 G43.109 Epigastric pain 41559078 R10.13 Change in stool caliber 83418912 R19.5 [id number] Frederic Wong MD Main Office [address] [address] [place] [address] 09/06/2023 14:38:45 09/06/2023 15:49:23 Adult health examination 868316203 Z00.00 Patient was counseled on healthy diet, exercise and nutrition due to Body mass index is 28.9 kg/m . Last Colonoscop y:Date: 10/21/21Res ult: 9 mm polypPlan: GI referral done Last Mammogram: Date: 03/31/18 ult: BI-RADS: 2Plan: Past age for screening Last Pap smearDate: Result:Alanna n: past age for screening Bone density scanDate: 03/31/18Res ult: WNL Vaccines:T d: 01/21/2020Z michelle rec: script [id number] : 01/16/18PPS V23: 01/21/2020P CV20: Script givenInflu lucero: 05/13/23RS V: DiscussedC ovid: encourage updated vaccine Routine labs today Immunizati on status reviewed. Will screen based on risk factors. Regular dental and ophtho care advised as well as seat belt and sunscreen use. Distracted driving discussed. Medication reconciled . Advance directives discussed. Advance di rective discussed with patient 890035421 Z71.89 MOLST/HCP discussed. Administra tion of viral vaccine 63265480 Z29.11 Varicella vaccination 68 330683 Z23 Administra tion of pneumococcal vaccine 40260826 Z23 Fatigue 55141362 R53.83 Z00.00 Hyperlipidemia 13678955 E78.5 Z00.00 Has tried multiple statin and zetia and has had myalgia.Melani rose has ?TIA from what her neurologis t has told her and has instructed her to be on asprin as well.Given that she is intolerant to statin and zetia will do repatha. She was advised to switch side every 2 weeks. She was advised to do labs after using meds for 1 mo. Hypothyroidism 76647782 E03.9 Stable on current dose. Vitamin D deficiency 347 81355 E55.9 Prediabetes 497828537 R7 3.03 Epigastric pain 64830246 R10.13 Following [facility] Change in stool caliber 66334503 R19.5 Following [facility] Migraine without aura 56 643759 G43.109 Following neurologis t. Primary insomnia 9652659 F51.01 Cw zolpidem: Risk discussedH as had sleep study in past. Varicose v eins of bilateral lower limbs 0841908848 9203607 I83.93 Patient notes that she has some varicositi es that are painful and some spider vein which is tender for the patient.Melani rose was inquiring about surgery, and thus have gone ahead and put in a referral for her to see the vascular surgeon to discuss options. Tinnitus 66809444 H93.19 Idiopathic peripheral neuropathy 94821261 G60.9 Following neurologis t. Body mass index 25-29 - overweight 048774190 Z68.25 Overweight 767390156 E66 .3 - Diet and exercise discussed- Encouraged to loose weight- Avoid starchy and fatty food- Encouraged use of green vegetables and fruits [id number] Morris Lofton MD Main Office [address] [place] [address] 10/20/2023 13:52:03 10/20/2023 14:38:09 Intermittent palpitations 864848804 R00.2 Had bloodwork in June, repeat bloodwork today, has had sx for 3 years intermitte ntly.EKG today: SR, no acute abnormalit y.Will order cardea solo x 7 days of monitoring as her sx are random. She will schedule appt to have holter placed.Wis hes to hold off on cardiology referral or other work-up for now. Hyperlipidemia 75585338 E78.5 Z00.00 started repatha only 1 month ago. Lightheadedness 73612011 8 R42 intermitte nt lightheade dness Hypothyroidism 90929241 E03.9 normal labs in June. Obstructiv e sleep apnea of adult 1283219881 103 G47.33 does not tolerate CPAP. [id number] Morris Lofton MD Main Office [address] [facility] [address] [place] [address] 10/28/2023 13:48:58 10/28/2023 14:04:54 [id number] Morris Lofton MD Main Office [address] [facility] [facility] [address] [employer] [address] 11/03/2023 09:28:21 11/03/2023 09:28:50 [id number] Frederic Wong MD Main Office [address] [facility] [address] [place] [address] 01/07/2024 09:18:00 01/07/2024 10:09:38 Dysuria [id number] R30.0 SYMPTOMS:b urning with urination? nofrequenc y? yeshematur ia? nolower abdominal pain? nosymptoms similar to previous UTI? NA POSSIBLE CONTRAINDI CATIONS TO TELEPHONE TREATMENT: > 65 years of age? yesfevers? norecent UTI (within 1 month)? nonew low back pain? nonausea or vomiting? no ? nohistory of interstiti al cystitis? yes patient believes so PROVIDER ACTION: Reviewed nursing notes? yesRecomme nded action needs appointmen t Antibiotic treatment NA Urine dip did not suggest UTI, will hold tx, send out.? cystitis, advised to follow COMMUTATOR ASSEMBLER for potential gynacologi jason exam.Urolo gy referral provided, will get urine void studies since she feels like there is pressure and urge to urinate with little volume.Pos sible CT, will revisit at follow up visit. Cystitis 84130175 B37.41 Unaware of need to urinate 893663406 N32.89 [id number] Frederic Wong MD Main Office 36[address] [facility] 207 [facility] [place] [address] 03/14/2024 14:18:45 03/14/2024 15:08:40 Dysuria 73012081 R30.[address], could not use CPAP. Prediabetes 743139813 R7 3.03 1. Lifestyle management ( diet and exercise) is effective in improving glycemia and reducing cardiovasc ular risk factors. Will also improvemen t blood pressure and lipid2. Repeat HgA1C at next AWE.3. Reduction in weight by 5% to 10% and maintainin g it ad terminal makeup operator will prevent or slow the developmen t4. Exercise 30min 5 days /wk or 150min per week, this will improve HgA1C as well as lipids Tinnitus 48969595 H93.19 -Has had workup has ENT in past.-New apt in Jun. Transient cerebral ischemia 301014871 G45.9 Follow neuro Varicose v eins of bilateral lower limbs [id number] 5469014 I83.93 Follows vascular. Obstructiv e sleep apnea of adult 8580095207 103 G47.33 Weight loss encouraged . Intermitte nt palpitations 451678362 R00.2 PVC discussed with patient hx of normal echo in past. Idiopathic peripheral neuropathy 95404290 G60.9 Following neurologis t. Hypothyroidism 95588348 E03.9 Stable on current dose. Hyperlipidemia 10359054 E78.5 Z00.00 Cont repatha. [id number] Frederic Wong MD Main Office [address] [facility] 207 [facility] [place] [address] 07/18/2024 13:02:17 07/18/2024 13:52:13 Idiopathic peripheral neuropathy 51282963 G60.9 I advised the patient to follow up with her neurologis t, who is currently managing her care, given the worsening and progressiv e nature of her symptoms. In the interim, I agreed to send a prescripti on to provide symptom relief until she is seen by her neurologis t. The patient reports that years ago, her previous PCP prescribed gabapentin , but she discontinu ed it because it was not effective. After reviewing her current medication s, many of which have sedating effects, I opted to prescribe pregabalin instead of gabapentin due to its comparativ willi lower sedative properties . She is currently taking Fioricet, which her neurologis t is tapering in favor of topiramate for long-term migraine prophylaxi s. Additional ly, she is on zolpidem for sleep and citalopram for mental health, both of which increase her risk of sedation. To minimize this risk, we agreed to initiate pregabalin at 75 mg, to be taken as a single tablet daily, to evaluate its effectiven ess in alleviatin g her symptoms. I recommende d that any necessary dose adjustment s or titration of pregabalin be managed by her neurologis t. We discussed the importance of addressing potential reversible causes of neuropathy , such as ensuring adequate vitamin B12 levels and monitoring for signs of systemic conditions like diabetes. The patient reported that bloodwork to evaluate these factors has already been performed by her neurologis t. I emphasized the importance of monitoring for signs of sedation and advised her to avoid alcohol and other PROMOTIONS EXECUTIVE depressant s while on pregabalin , given her current medication s. I will follow up with her during her scheduled physical to reassess her response to the medication and to ensure continuity of care with her neurologis t, who will oversee her ongoing treatment. The patient expressed understand ing and agreement with this plan. [id number] Frederic Wong MD Main Office [address] [place] [address] 09/14/2024 14:16:46 09/14/2024 15:13:54 Adult health examination 723368253 Z00.00 Patient was counseled on healthy diet, exercise and nutrition due to Body mass index is 28.9 kg/m . Last Colonoscop y:Date: 10/21/21Res ult: 9 mm polypPlan: GI referral done Last Mammogram: Date: 02/03/2022 Result: BI-RADS: 1Plan: Past age for screening Last Pap smearDate: Result:Alanna n: past age for screening Bone density scanDate: 03/31/18Res ult: WNL Vaccines:T d: 01/21/2020Z michelle rec: 01/26/24 reminded second atrzSSD98: 01/16/18PPS V23: 01/21/2020P CV20: Script givenInflu lucero: 01/26/24RSV: 01/26/24Covi d: encourage updated vaccine Routine labs today Immunizati on status reviewed. Will screen based on risk factors. Regular dental and ophtho care advised as well as seat belt and sunscreen use. Distracted driving discussed. Medication reconciled . Advance directives discussed. Advance di rective discussed with patient [id number] Z71.89 MOLST/HCP discussed. Screening for malignant neoplasm of colon 782473344 Z12.11 Fatigue 67566973 R53.83 Z00.00 Hyperlipidemia 40567547 E78.5 Z00.00 Cont. repatha. Hypothyroidism 85363811 E03.9 Stable on current dose. Prediabetes 136710428 R7 3.03 1. Lifestyle management ( diet and exercise) is effective in improving glycemia and reducing cardiovasc ular risk factors. Will also improvemen t blood pressure and lipid2. Repeat HgA1C at next AWE.3. Reduction in weight by 5% to 10% and maintainin g it [facility] will prevent or slow the developmen t4. Exercise 30min 5 days /wk or 150min per week, this will improve HgA1C as well as lipids Migraine without aura 56 443340 G43.109 Following neurologis t. Primary insomnia 6011270 F51.01 Cw zolpidem: Risk discussedH as had sleep study in past. Idiopathic peripheral neuropathy 03035599 G60.9 Following neurologis t. Overweight 253416127 E66 .3 - Diet and exercise discussed- Encouraged to loose weight- Avoid starchy and fatty food- Encouraged use of green vegetables and fruits Body mass index 25-29 - overweight 196753300 Z68.25 Administra tion of pneumococcal vaccine 77889310 Z23 Varicella vaccination 68 342757 Z23 [id number] Frederic Wong MD Main Office [address] [place], [place] [address] 03/18/2025 11:04:38 03/18/2025 12:21:23 Influenza vaccine needed 2904215232 106 Z23 65 YEARS AND OLDER Fatigue 40008759 R53.83 55944594 Chronic constipation 236 043155 K59.09 778848 Prediabetes 409629289 R7 3.03 Gastroesop hageal reflux disease 865580612 K21.9 Anal fissure 37979075 K6 0.2 External hemorrhoids 239 76003 K64.4 Hypothyroidism 30936661 E03.9 Stable on current dose. Idiopathic peripheral neuropathy 02549411 G60.9 Following neurologis t. Obstructiv e sleep apnea of adult 9745405257 103 G47.33 Health Concerns Section Related Observation LastModified by Organization Detai ls LastModified Time None Recorded Concern Status LastModified by Organization Details LastModified Time None Recorded Advance Directives Directive Y: Salvador Deshawn Payers Insurance Date Sequence Insurance Name Policy Number Policy Gama Covered Member ID Gama Member ID Guarantor Name 05/01/2025 2 [facility] IN[facility]MNITY PLAN (INDEMNITY) [id number] Celine Hess [id number] Celine Hess 05/01/2025 1 MEDICARE B-ME: [employer] Celine Hess [id number] Celine Hess Notes Date Note Type Note Provider Name and Address Organization Details Recorded Time 01/07/2024 text/html DysuriaReported by PatientHPIFor quality, patient reportspressure. For severity, patient reportsworsening. For duration, patient reportssymptoms lasting over 2 weeks. For context, patient reportsno prior history of stdsandno known exposure to std. For modifying factors, patient reportsnothing gives reliefandnothing makes it worse. For associated symptoms, patient reportsno fever,no blisters on genitals,no rash on genitals,no hesitancy,no blood in the urine,normal urine stream, andno flank pain.No burning or itching. Frederic Wong MD [address], [address], [facility] 01/07/2024 10:13:39 03/14/2024 text/html FatigueReported by PatientHPIFor context, patient reportssymptoms do not improve on weekends/vacationsandt aking new medicationsbut reportsno problems/stress at work or home. For associated symptoms, patient reportsrecent change in weightbut reportsno drug/alcohol withdrawal,no depression,no anxiety,no sleep disturbances,no snoring, andperiods of not breathing (apnea) have not been observed. For quality, patient reportssymptoms worse during the day. For severity, patient reportsnormal sleep patterns,normal exercise habits,normal activity, andimproving. For modifying factors, patient reportsno new stressors in lifeandtaking vitamins. For timing, (interment). Follow up for chronic health, reviewed concerns regarding fatigue with normal workup including cardiac. Frederic Wong MD [address] [address], [place], [address], [facility] 03/14/2024 16:24:31 07/18/2024 text/html The patient has a history of idiopathic neuropathy previously evaluated by two neurologists with labs and imaging studies. She presents today requesting a fill of gabapentin. The patient reports that years ago, her previous PCP prescribed gabapentin, but she discontinued it because it was not effective. Since that time, her symptoms have worsened. She describes persistent qrov-dms-tethqmi sensations and numbness in her legs, which are now exacerbated by even light touch, such as sheets or physical contact with her legs. YASMIN Tong, [facility] 07/20/2024 17:06:33 09/14/2024 text/html Generic HPI TemplateReported by Patient Medicare Annual Wellness VisitReported by PatientSocial/Behavior al HistoryFor diet and nutrition, patient reportshealthy diet. For fracture risk, patient reportsno recent explained fracture. For physical activity, patient reportsdiscussed exercise habits.Mental Status:For concentration and memory, patient reportsno memory lapses or loss. For speech/motor difficulties, patient reportsno speech difficulties. For depression risk, (see phq).Functional AbilityFor falls risk assessment, patient reportsfrequent falls while walking (has 'tripped' d/t neuropathy - worried about her h/o thr --- fol by specialist in [place])but reportsno dizziness/vertigo. For hearing, patient reportsno loss of hearing. For vision, patient reportsno vision problems (wears glasses). For activities of daily living, patient reportsable to bathe with limited or no assistance,able to contol urination and bowels,able to dress with limited or no assistance,able to feed self with limited or no assistance,able to get out of chair or bed with limited or no assistance,able to groom with limited or no assistance, andable to toilet with limited or no assistance. For instrumental activities of daily living, patient reportsable to do house work with limited or no assistance,able to grocery shop with limited or no assistance,able to manage medications with limited or no assistance,able to manage money with limited or no assistance,able to prepare meals with limited or no assistance, andable to use the phone with limited or no assistance. For home safety, patient reportsno unsafe meghan hazzards,no unsafe stairs,working smoke/co detectors,good lighting in the home, andreviewed sun protection.ROS as noted in the HPI Here for PE visit. Reviewed chronic medications and medical problems. Discussed screening guidelines as well as goals for fitness and weight management. Frederic Wong MD [address] [address], [place], [address], [facility] 09/14/2024 15:11:39 03/18/2025 text/html Patient presents for follow-up of [...] heartburn controlled on medication. Frederic Wong MD [address] [facility] [address], [place], [address], [facility] 03/18/2025 12:14:24 OBGyn Episode No OBEpisode recorded.
--- OUTSIDE RECORDS SUMMARY | 2025-05-20 18:00 | XMS_ITS | Clinical Summary ---
Author Organization [facility] Address [address] [facility] [address] [place] [address] Phone Care Team Providers Care Television News Video Editor Name Role Phone Johan Ge MD Primary Care Provider [phone] Allergies Active Allergy Reactions Criticality Noted Date Comments Atorvastatin Myalgia 12/05/2024 Rosuvastatin Myalgia 12/05/2024 Medications CITALOPRAM HYDROBROMIDE (CITALOPRAM ORAL) Take 20 mg by mouth nightly at bedtime. Active zolpidem (AMBIEN) 5 MG tablet Take 5 mg by mouth nightly as needed for sleep. Active omeprazole (PRILOSEC) 40 MG capsule Take 40 mg by mouth daily. Reported on 07/19/2016 Active MELOXICAM ORAL Take by mouth. Active levothyroxine (SYNTHROID, LEVOTHROID) 88 MCG tablet Take 88 mcg by mouth nightly at bedtime. Active celecoxib (CELEBREX) 200 MG capsule Take 200 mg by mouth daily. Active butalbital-aceta minophen-caffein e (FIORICET, ESGIC) 50-325-40 mg per tablet Take 1 tablet by mouth as needed for pain (specific location in comments). Active cholecalciferol (VITAMIN D3) 2,000 unit tablet Take 2,000 Units by mouth daily. Active magnesium oxide 250 mg (150 mg elemental) Tab Take 250 mg by mouth daily. Active acetaminophen (TYLENOL) 325 mg tablet Take 325 mg by mouth every 6 (six) hours as needed. Active topiramate 50 mg Cp24 Take 50 mg by mouth nightly at bedtime. Active Medication-Free Text I take a cholesterol med injection 2 x per month, I dont know what its called Active aspirin 81 mg chewable tablet Take 81 mg by mouth daily. Active REPATHA SURECLICK 140 mg/mL PnIj subcutaneous pen injector Inject 140 mg under the skin every 14 (fourteen) days. 4 Active pregabalin (LYRICA) 75 MG capsule Take 75 mg by mouth nightly at bedtime. Active cyanocobalamin, vitamin B-12, 100 MCG tablet Take 100 mcg by mouth daily. Active ibuprofen (ADVIL,MOTRIN) 600 MG tablet Take 1 tablet (600 mg total) by mouth every 6 (six) hours as needed for pain (specific location in comments). 5 Active oxyCODONE 5 MG immediate release tablet Take 1 tablet (5 mg total) by mouth every 4 (four) hours as needed for pain (specific location in comments). Partial fill ok 3 tablet 5 Active Active Problems Problem Noted Date Diagnosed Date Infected dental caries 07/05/2017 Chronic maxillary sinusitis 07/05/2017 Osteoarthritis of hip 07/19/2016 Encounters Date Type Department Care Team Description 05/07/[address] [address] Celine Woody MD Liu/active symptoms 03/20/2025 11:30 AM EDT Telemedicine [facility] General & GI Surgery [address] [place] [address] [place] Pedraza MD 03/14/2025 10:00 AM EDT Telemedicine [facility] [address] [address] Celine Woody MD History of colonic polyps (Primary Dx); History of anal fissures 02/20/2025 Orders Only [facility] General & GI Surgery [address] [place] [id number] Lainey Schwartz PA-C Anal fissure (Primary Dx) from Last 3 Months Family History Medical History Relation Comments Cancer Brother Relation Status Comments Brother Alive Father Maternal Grandfather Maternal Grandmother Mother Paternal Grandfather Paternal Grandmother Sister Alive Son Social History Tobacco Use Types Packs/Day Years Used Date Smoking Tobacco: Never Cigarettes Qu it: 06/22/2001 Passive Smoke Exposure: Never Smokeless Tobacco: Never Tobacco Cessation:Counseling Given: Not Answered Alcohol Use Standard Drinks/Week Comments Yes 1 [...] 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 Height 174 cm (5' 8.5 ) 11/28/2024 3:34 PM EDT Body Mass Index 28.02 11/28/2024 3:34 PM EDT Plan of Treatment Upcoming Encounters Date Type Department Care Team ([facility] st Contact Info) Description 06/07/2025 Procedure Pass [facility] Endoscopy Department [address] [place] [address] 06/07/2025 1:00 PM EST Hospital Encounter [facility] Endoscopy Department [address] [place] [address] Celine Woody MD [address] [place] [address] [email or web address] 06/07/2025 1:00 PM EST - 06/07/2025 1:40 PM EST Surgery [facility] Endoscopy Department [address] [place] [address] Celine Woody MD [address] [place] [address] [email or web address] COLONOSCOPY 08/28/2025 2:30 PM EST Office Visit [facility] Medical Specialties [address] [facility] [address] [place] [address] Asim Liang MD [address] [place] [address] [address] [place] [address] Scheduled Procedures Name Priority Associated Diagnoses Date/Ti me COLONOSCOPY History of colonic polyps History of anal fissures 06/07/2025 1:00 PM EST Health Maintenance Due Date Last Done Comments LIPID PANEL 1945 TSH LEVEL 1945 DEPRESSION SCREENING 1958 HEPATITIS C SCREENING 1964 OSTEOPOROSIS SCREENING INITIAL (ONE-TIME) 2011 ZOSTER VACCINES (2 of 3) 07/22/2013 05/27/2013, 10/10/2012 RSV VACCINE (1 - 1-dose 75+ series) 2021 INFLUENZA VACCINE (#1) 2025 3, 04/09/2022, 04/20/2021, Additional history exists COVID-19 VACCINE (2024- season) 2025 01/06/2022, 05/06/2021, 08/22/2020, Additional history exists Adult Td,Tdap Booster 01/20/2030 01/21/2020, 009 PNEUMOCOCCAL VACCINES (50+ years) Completed 01/21/2020, 01/16/2018 SMOKING STATUS SCREENING (Once After 26 Yrs) Completed 11/28/2024 HEPATITIS A VACCINES Aged Out No long er eligible based on patient's age to complete this topic HIB VACCINES Aged Out No longer eligi ble based on patient's age to complete this topic MENINGOCOCCAL VACCINES (ACWY) Aged Out No longer eligible based on patient's age to complete this topic MENINGOCOCCAL VACCINES (B) Aged Out N o longer eligible based on patient's age to complete this topic Medical Devices Implanted Type Area Sky Line Yarder Device Identifier Shelf Expiration Date Model / Serial / Lot Implant Hip Plug Liner Hole Eliminator Threaded Positive Stop Wellman Ea Hip 16b - [id number] Implanted:Qty: 1 on 07/19/2016 by Luis Armando Kelly MD at [facility] Right: [employer] 03/26/2026 1246-03-000 / / [id number] Screw Bone 6.5x25mm Cancellous Acetabular Tapered [place] Ea Hip 16a - [id number] Implanted:Qty: 1 on 07/19/2016 by Luis Armando Kelly MD at [facility] Right: [employer] 02/24/2026 1217-25-500 / / [id number] Screw Bone 6.5x30mm Cancellous Acetabular Tapered [place] Ea Hip 16a - [id number] Implanted:Qty: 1 on 07/19/2016 by Luis Armando Kelly MD at [facility] Right: [employer] 04/26/2026 1217-30-500 / / [id number] Implant Hip 52mm Cup Acetabular [place] Sector Ii Ea Hip 06 - [id number] Implanted:Qty: 1 on 07/19/2016 by Luis Armando Kelly MD at [facility] STANDARD Right: [employer] 04/26/2026 1217-22-052 / / [id number] Hip Dep#1570-05-06 0 [place] Fem Stem Sz4 Tapered Hip 01 - [id number] Implanted:Qty: 1 on 07/19/2016 by Luis Armando Kelly MD at [facility] STANDARD Right: Femur [employer] 03/26/2026 1570-11-100 / / [id number] Hip 1365-36-330 Head Femoral 36mm +8.5 06/09 Taper Articulated Ceramic Hip 04 - [id number] Implanted:Qty: 1 on 07/19/2016 by Luis Amrando Kelly MD at [facility] STANDARD Right: [employer] 03/26/2021 1365-36-330 / / [id number] Hip Altrx Liner 36 X 52mm Anai Hip 10 - [id number] Implanted:Qty: 1 on 07/19/2016 by Luis Armando Kelly MD at [facility] STANDARD Right: [employer] 05/26/2021 [id number] / / [id number] Insurance * Guarantor: Celine Hess Account Type Relation to Patient Date of Phone Billing Address Personal/Family Self 1945 [address] [place] [address] MEDICARE PART A & B Member Subscriber Plan / Payer (Ef fective 2011-Present) Name:Celine Hess Member ID:[id number] Relation to Subscriber:Self Name:Celine Hess Subscriber ID:[id number] Payer ID:[id number] Group ID:Not on file Type:Medicare Address: [facility] [employer] [facility] [employer] [facility] [address] [place] [address] [facility] MEDICARE SUPPLEMENT MEDICARE PART A & B [facility] MEDICARE SUPPLEMENT * Guarantor: Celine Hess Account Type Relation to Patient Date of Phone Billing Address Personal/Family Self [address] [place] [address] MEDICARE PART A & B [facility] MEDICARE SUPPLEMENT * Guarantor: Celine Hess Account Type Relation to Patient Date of Phone Billing Address Personal/Family Self 1945 [address] [place] [address] MEDICARE PART A & B [facility] MEDICARE SUPPLEMENT * Guarantor: Celine Hess Account Type Relation to Patient Date of Phone Billing Address Personal/Family Self 1945 [address] [place] [address] [facility]ICARE [facility] A & [facility] MEDICARE SUPPLEMENT * Guarantor: Celine Hess Account Type Relation to Patient Date of Phone Billing Address Personal/Family Self [address] [place] [address] MEDICARE PART A & B [facility] MEDICARE SUPPLEMENT MEDICARE PART A & B [employer] MEDICARE SUPPLEMENT MEDICARE PART A & B [employer] MEDICARE SUPPLEMENT MEDICARE PART A & B [facility] MEDICARE SUPPLEMENT MEDICARE PART A & B [email or web address] [facility] MEDICARE SUPPLEMENT Advance Directives For more information, please contact: [phone] (9AM - 5PM Health System/[facility], Tuesday-Tuesday) Documents on File Type Date Recorded Patient Transformer Shop Supervisor Expl anation Healthcare Proxy 07/23/2016 2:35 PM * Full Code (Presumed) (Latest Code Status on File) Date Activated Date Inactivated Comments 07/19/2016 12:55 PM 07/22/2016 2:30 PM * Full Code (Presumed) Date Activated Date Inactivated Comments 07/19/2016 6:03 AM 07/19/2016 12:55 PM * Full Code (Presumed) Date Activated Date Inactivated Comments 07/08/2016 6:24 AM 07/08/2016 10:09 AM Care Teams Television News Video Editor Relationship Specialty Start Date End Date Johan Ge MD [address] [phone] PCP - General Family Medicine 06/24/23 Additional Source Comments The information contained in this document represents components of the legal health record. It is not the complete legal health record.[facility]
--- OUTSIDE RECORDS SUMMARY | 2025-05-20 18:00 | XMS_ITS | Encounter Summary ---
Author Organization [facility] Address [address] [facility] [address] [place] [address] Phone Care Team Providers Care Bessemer Converter Blower Name Role Phone Johan Ge MD Primary Care Provider [phone] Encounter Details Date Type Department Care Team (Late st Contact Info) Description 11/28/2024 Prep for Surgery [facility] General & GI Surgery [address] [facility] ASB2-3 [place] [address] Los Pedraza MD [address] [facility] 3rd [place] [address] [email or web address] Social History Tobacco Use Types Packs/Day Years Used Date Smoking Tobacco: Never Cigarettes Qu it: 06/22/2001 Passive Smoke Exposure: Never Smokeless Tobacco: Never Alcohol Use Standard Drinks/Week [...] 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 Not on file Not on file documented as of this encounter Plan of Treatment Upcoming Encounters Date Type Department Care Team (Late st Contact Info) Description 06/07/2025 Procedure Pass [facility] Endoscopy Department [address] [place] [address] 06/07/2025 1:00 PM EST Hospital Encounter [facility] Endoscopy Department [address] [place] [address] Celine Woody MD [address] [place] [address] [email or web address] 06/07/2025 1:00 PM EST - 06/07/2025 1:40 PM EST Surgery [facility] Endoscopy Department [address] [place] [address] Celine Woody MD [address] [place] [address] [email or web address] 08/28/2025 2:30 PM EST Office Visit [facility] Medical Specialties [address] [facility]2 [place] [address] Asim Liang MD [address] [place] [address] PBB[address]B-[address] [place] [address] Scheduled Procedures Name Priority Associated Diagnoses Date/Ti me COLONOSCOPY History of colonic polyps History of anal fissures 06/07/2025 1:00 PM EST documented as of this encounter Visit Diagnoses Not on filedocumented in this encounter Care Teams Bessemer Converter Blower Relationship Specialty Start Date End Date Johan Ge MD [address] [facility] [address] [place] [address] PCP - General Family Medicine 06/24/23 documented as of this encounter Additional Source Comments The information contained in this document represents components of the legal health record. It is not the complete legal health record.[facility]
--- OUTSIDE RECORDS SUMMARY | 2025-05-20 18:00 | XMS_ITS | Encounter Summary ---
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 on file Not on file documented as of this encounter Plan of Treatment Upcoming Encounters Date Type Department Care Team (Late st Contact Info) Description 06/07/2025 Procedure Pass [facility] Endoscopy Department [address] [place] [address] 06/07/2025 1:00 PM EST Hospital Encounter [facility] Endoscopy Department [address] [place] [address] Celine Woody MD [address] [place] [address] [email or web address] 06/07/2025 1:00 PM EST - 06/07/2025 1:40 PM EST Surgery [facility] Endoscopy Department [address] [place] [address] Celine Woody MD [address] [place] [address] [email or web address] 08/28/2025 2:30 PM EST Office Visit [facility] Medical Specialties [address] [facility] ASB2-[address] [place] [address] Asim Liang MD [address] [facility] PBB[address]B-[address] [place] [address] Scheduled Procedures Name Priority Associated Diagnoses Date/Ti mn COLONOSCOPY History of colonic polyps History of anal fissures 06/07/2025 1:00 PM EST documented as of this encounter Visit Diagnoses Not on filedocumented in this encounter Care Teams Beam Worker Relationship Specialty Start Date End Date Johan Ge MD [address] [facility] [address] [place] [address] PCP - General Family Medicine 06/24/23 documented as of this encounter Additional Source Comments The information contained in this document represents components of the legal health record. It is not the complete legal health record.[facility]
--- OUTSIDE RECORDS SUMMARY | 2025-05-20 18:00 | XMS_ITS | Encounter Summary ---
Author Organization [facility] Address [address] [facility] [address] [place] [address] Phone Care Team Providers Care Instrument Room Technician Name Role Phone Tomer [place] MD Primary Care Provider [phone] Johan Ge MD Primary Care Provider [phone] Encounter Details Date Type Department Care Team (Late st Contact Info) Description 04/28/2021 Ancillary Orders [facility] [place] [address] [place] [address] Willa Lombardi MD [address] [place] [address] Division of Rheumatology, [place] [address] [email or web address] Osteoarthritis, unspecified osteoarthritis type, unspecified site Social History Tobacco Use Types Packs/Day Years [...] 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 Not on file Not on file documented as of this encounter Plan of Treatment Upcoming Encounters Date Type Department Care Team (Late Contact Info) Description 06/07/2025 Procedure Pass [facility] Endoscopy Department 75 [place] [address] 06/07/2025 1:00 PM EST Hospital Encounter [facility] Endoscopy Department [address] [place] [address] Celine Woody MD [address] [address] [email or web address] 06/07/2025 1:00 PM EST - 06/07/2025 1:40 PM EST Surgery [facility] Endoscopy Department [address] [place] [address] Celine Woody MD [address] [place] [address] [email or web address] [email or web address] 08/28/2025 2:30 PM EST Office Visit [facility] Specialties [address] [facility] ASB2-[address] [place] [address] Asim Liang MD [address] [place] [address] PBB[address] [place] [address] Scheduled Procedures Name Priority Associated Diagnoses Date/Ti me COLONOSCOPY History of colonic polyps History of anal fissures 06/07/2025 1:00 PM EST documented as of this encounter Results * XR HAND 3 OR MORE VIEWS (LEFT) (04/28/2021 4:13 PM EDT) Anatomical Region Laterality Modality Hand Left Computed Radiogr aphy 04/29/2021 9:09 AM EDT Impressions 04/29/2021 9:11 AM EDT FINDINGS/IMPRESSION: Osteopenia. No acute fracture or dislocation. There is bilateral DIP cartilage space narrowing with central erosions at the second through fifth DIP joints on the left, second and fourth and fifth DIP joints on the right. Bilateral second through fifth PIP cartilage space narrowing on the right, fourth and fifth toes space narrowing on the left with central erosions. Mild bilateral thumb IP joint degenerative changes. Severe left first CMC and moderate right first CMC cartilage space narrowing with hypertrophic changes. Medial subluxation at the second and third PIP joints. 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 Narrative 04/29/2021 9:11 AM EDT XR HAND 3 OR MORE VIEWS (RIGHT), XR HAND 3 OR MORE VIEWS (LEFT) COMPARISON: None Procedure Note Karla Vargas MD - 04/29/2021 XR HAND 3 OR MORE VIEWS (RIGHT), XR HAND 3 OR MORE VIEWS (LEFT) COMPARISON: None IMPRESSION: FINDINGS/IMPRESSION: Osteopenia. No acute fracture or dislocation. Thereis bilateral DIP cartilage space narrowing with central erosions at thesecond through fifth DIP joints on the left, second and fourth and fifthDIP joints on the right. Bilateral second through fifth PIP cartilagespace narrowing on the right, fourth and fifth toes space narrowing on theleft with central erosions. Mild bilateral thumb IP joint degenerativechanges. Severe left first CMC and moderate right first CMC cartilagespace narrowing with hypertrophic changes. Medial subluxation at thesecond and third PIP joints. 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 Willa Lombardi MD IMG XR UPPER EXTREMITY Final Result documented in this encounter Visit Diagnoses Diagnosis Osteoarthritis, unspecified osteoarthritis type, unspecified site Osteoarthritis, unspecified osteoarthritis type, unspecified site History of colonic polyps Personal history of colonic polyps History of anal fissures documented in this encounter Care Teams Instrument Room Technician Relationship Specialty Start Date End Date Tomer [place] MD [address] [place] [phone] PCP - General Internal Medicine 07/08/16 06/23/23 Johan Ge MD [address] [place] [phone] PCP - General Family Medicine 06/24/23 documented as of this encounter Additional Source Comments The information contained in this document represents components of the legal health record. It is not the complete legal health record.[facility]
--- OUTSIDE RECORDS SUMMARY | 2025-05-20 18:00 | XMS_ITS | Encounter Summary ---
Author Organization [facility] Address [address] [facility] [address] [place] [address] Phone Care Team Providers Care Care Management Associate Name Role Phone Johan Ge MD Primary Care Provider [phone] Encounter Details Date Type Department Care Team (Late Contact Info) Description 10/25/2023 Procedure Pass [facility] Endoscopy Admitting Dept Virtual Department [address] [place] [address] Social History Tobacco Use Types Packs/Day Years [...] with a working camera? 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 Not on file Not on file documented as of this encounter Plan of Treatment Upcoming Encounters Date Type Department Care Team (Late st Contact Info) Description 06/07/2025 Procedure Pass [facility] Endoscopy Department 75 [place] [address] 06/07/2025 1:00 PM EST Hospital Encounter [facility] Endoscopy Department 75 [place] [address] Celine Woody MD [address] [address] [email or web address] 06/07/2025 1:00 PM EST - 06/07/2025 1:40 PM EST Surgery [facility] Endoscopy Department 75 [place] [address] Celine Woody MD [address] [address] [email or web address] COLONOSCOPY 08/28/2025 2:30 PM EST Office Visit [facility] [address] [facility] ASB2-2 [place] [address] Asim Liang MD 75 [facility] PBB-B-[address] [place] [address] Scheduled Procedures Name Priority Associated Diagnoses Date/Ti me COLONOSCOPY History of colonic polyps History of anal fissures 06/07/2025 1:00 PM EST documented as of this encounter Visit Diagnoses Not on filedocumented in this encounter Care Teams Care Management Associate Relationship Specialty Start Date End Date Johan Ge MD [address] [facility] [address] [place] [address] PCP - General Family Medicine 06/24/23 documented as of this encounter Additional Source Comments The information contained in this document represents components of the legal health record. It is not the complete legal health record.[facility]
--- OUTSIDE RECORDS SUMMARY | 2025-05-20 18:00 | XMS_ITS | Encounter Summary ---
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 Not on file Not on file documented as of this encounter Plan of Treatment Upcoming Encounters Date Type Department Care Team (Late st Contact Info) Description 06/07/2025 Procedure Pass [facility] Endoscopy Department [address] [place] [address] 06/07/2025 1:00 PM EST Hospital Encounter [facility] Endoscopy Department [address] [place] [address] Celine Woody MD [address] [place] [address] [email or web address] 06/07/2025 1:00 PM EST - 06/07/2025 1:40 PM EST Surgery [facility] Endoscopy Department [address] [place] [address] Celine Woody MD [address] [place] [address] [email or web address] COLONOSCOPY 08/28/2025 2:30 PM EST Office Visit [facility] Medical Specialties 45 [facility] ASB2-2 [place] [address] Asim Liang MD [address] [place] [address] PBB[address]B-[address] [place] [address] Scheduled Procedures Name Priority Associated Diagnoses Date/Ti me COLONOSCOPY History of colonic polyps History of anal fissures 06/07/2025 1:00 PM EST documented as of this encounter Visit Diagnoses Not on filedocumented in this encounter Care Teams Vision Therapist Relationship Specialty Start Date End Date Johan Ge MD [address] [phone] PCP - General Family Medicine 06/24/23 documented as of this encounter Additional Source Comments The information contained in this document represents components of the legal health record. It is not the complete legal health record.[facility]
--- OUTSIDE RECORDS SUMMARY | 2025-05-20 18:00 | XMS_ITS | Encounter Summary ---
Author Organization [facility] Address [address] [employer] [facility] [address] [place] [address] Phone Care Team Providers Care Gem Stone Cutter Name Role Phone Johan Ge MD Primary Care Provider [phone] Encounter Details Date Type Department Care Team (Late st Contact Info) Description 06/28/2023 Procedure Pass [facility] [place] [address] [place] [address] Social History Tobacco Use Types Packs/Day Years [...] a working camera? 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 06/07/2025 1:00 PM EST - 06/07/2025 1:40 PM EST Surgery [facility] Endoscopy Department 75 [place] [address] Celine Woody MD [address] [address] [email or web address] COLONOSCOPY 08/28/2025 2:30 PM EST Office [facility] 45 [facility] ASB2-2 [place] [address] Asim Liang MD 75 [facility] [address] [place] [address] Scheduled Procedures Name Priority Associated Diagnoses Date/Ti me COLONOSCOPY History of colonic polyps History of anal fissures 06/07/2025 1:00 PM EST documented as of this encounter Visit Diagnoses Not on filedocumented in this encounter Care Teams Gem Stone Cutter Relationship Specialty Start Date End Date Johan Ge MD [address] [facility] [address] [place] [address] PCP - General Family Medicine 06/24/23 documented as of this encounter Additional Source Comments The information contained in this document represents components of the legal health record. It is not the complete legal health record.[facility]
== END 2025-05-20 13:35 | disposition home or self-care (01) ==
LOC: HO.HSM 13:21
PROVIDERS: PCP Family Medicine; Referring Provider Family Medicine; Visit Provider Psychiatry & Neurology Neurology
DX: G62.9 Polyneuropathy, unspecified (principal); I67.89 Other cerebrovascular disease; G43.109 Migraine with aura, not intractable, without status migrainosus
CPT/HCPCS: 99213

== ENCOUNTER → 2025-05-20 13:20 | Outpatient (BNVA) | payer MEDICARE, OTHER, SELFPAY | PROVIDERS: PCP Family Medicine; Referring Provider Family Medicine; Visit Provider Psychiatry & Neurology Neurology | DX: G43.109 Migraine with aura, not intractable, without status migrainosus (principal); I25.85 Chronic coronary microvascular dysfunction; Z86.73 Personal history of transient ischemic attack (TIA), and cerebral infarction without residual deficits; Z79.82 Long term (current) use of aspirin; I10 Essential (primary) hypertension | CPT/HCPCS: 99212 ==